=== PATIENT | female | born 1955 | race Caucasian/White ===

== ENCOUNTER → 2017-06-02 | Outpatient (CLI) | payer OTHER ==
[2015-02-26 22:03] VITALS: BP 128/66
[~2017-06-02] MED LIST: DIVA500T17 PO; INSU100C SQ; INSU100V8 SQ; OLAN20TA7 PO; TRAZ100T12 PO; TRAZ50TA15 PO
--- NOTE | 2017-06-02 16:47 | KCIC ---
Left lower extremity venous Doppler ultrasound History: Pain and swelling of the left foot. Comparison: None. Procedure: Color flow Doppler, Doppler spectral analysis, and 2D images are obtained with and without compression in the area of the common femoral vein, superficial femoral vein - femoral vein junction, main femoral vein (superficial femoral vein) and popliteal vein. Veins of the proximal calf are also imaged. Findings: There is normal color flow, augmentation, and compressibility of all visualized vein segments. No evidence of deep venous thrombus is present. IMPRESSION: No evidence of left lower extremity deep venous thrombosis. Electronically signed by: Martell Schultz MD (06/02/2017 4:43 PM) [id number]
--- NOTE | 2017-06-19 12:28 | KCIC ---
Left lower extremity venous Doppler ultrasound History: Pain and swelling of the left foot. Comparison: None. Procedure: Color flow Doppler, Doppler spectral analysis, and 2D images are obtained with and without compression in the area of the common femoral vein, superficial femoral vein - femoral vein junction, main femoral vein (superficial femoral vein) and popliteal vein. Veins of the proximal calf are also imaged. Findings: There is normal color flow, augmentation, and compressibility of all visualized vein segments. No evidence of deep venous thrombus is present. IMPRESSION: No evidence of left lower extremity deep venous thrombosis. Electronically signed by: Martell So MD (06/02/2017 4:43 PM) [id number] DICTATED and SIGNED BY: MARTELL SO MD DATE: 06/02/17 1642 MTDD
== END | disposition home or self-care (01) ==
LOC: KCIC US 15:34
PROVIDERS: ATTEND Emergency Medicine
DX: M79.89 Other specified soft tissue disorders (principal)
CPT/HCPCS: 93971

== ENCOUNTER 2018-11-18 10:14 | Inpatient (IN) | payer OTHER ==
[2018-11-18] VITALS (11 sets, daily range): BP systolic 93–147; BP diastolic 46–82
[~2018-11-18] VITALS: Ht 167.6 cm; Wt 50.8 kg
[~2018-11-18 10:14] MED LIST changes: +OLAN20TA15 PO; -OLAN20TA7 PO; +TRAZ-118 PO; +TRAZ-86 PO; -TRAZ100T12 PO; -TRAZ50TA15 PO
[2018-11-18] MEDS ORDERED: IV NORMAL SALINE 1000ML BAG 1,000 ML IV SCH ×2 (10:28→12:00)
[2018-11-18] MEDS ORDERED: INSULIN REGULAR 100 UNIT/ML 3ML VIAL. IV ONE (10:30)
[2018-11-18] MEDS ORDERED: IV NORMAL SALINE 1000ML BAG 1,000 ML IV ONE ×2 (10:30→11:30)
[2018-11-18] MEDS ORDERED: INSULIN,REGULAR 150 UNIT DRIP 150 ML IV ONE (10:45)
[2018-11-18 11:00] LABS: BILIRUBIN,URINE NEGATIVE (NEG); CLARITY,URINE CLEAR; COLOR,URINE YELLOW; NITRITE,URINE NEGATIVE (NEG); PROTEIN,URINE NEGATIVE (NEG-TRACE); UROBILINOGEN,URINE 0.2 mg/dL (0.2 mg/dL)
[2018-11-18 11:01] LABS: BASE EXCESS ABG -21 mmol/L (-3-3); HCO3 ABG 5 mmol/L (21-28); PO2 ABG 121 mmHg (65-108); SAT O2 ABG 97 % (92-99)
[2018-11-18 11:02] LABS: ALBUMIN 3.6 g/dL (3.4-5.0); ALBUMIN/GLOBULIN RATIO 0.8 (1.0-1.7); CALCIUM 9.9 mg/dL (8.5-10.1); CREATININE 2.5 mg/dL (0.6-1.0); GFR 19.5; MAGNESIUM 2.5 mg/dL (1.8-2.4); PHOSPHORUS 6.5 mg/dL (2.6-4.7); POTASSIUM 4.6 mmol/L (3.5-5.1); TOTAL BILIRUBIN 0.7 mg/dL (0.2-1.0); TOTAL PROTEIN 8.1 g/dL (6.4-8.2)
[2018-11-18 11:03] LABS: AMORPHOUS SEDIMENT,UR PRESENT /HPF; SQUAMOUS EPITHELIAL CELL,UR MOD /LPF
[2018-11-18 11:04] LABS: BACTERIA,URINE FEW /HPF (0-FEW); HYALINE CASTS, URINE FEW /HPF
[2018-11-18 11:04] LABS: FIO2 ABG 28; PCO2 ABG < 15 mmHg (35-46)
--- NOTE | 2018-11-18 11:07 | RAD ---
EXAM: Chest, single view. HISTORY: Shortness of breath. COMPARISON: 07/26/2013 FINDINGS: A frontal view of the chest is obtained. There is no infiltrate, pleural effusion or pneumothorax. The heart is normal in size. IMPRESSION: No acute pulmonary finding. Electronically signed by: Naomy Ellison MD (11/18/2018 11:04 AM) [facility]
[2018-11-18 11:10] LABS: BASO % 0 % (0-3); EOS % 0 % (0-3); HEMATOCRIT 43.1 % (36.0-47.0); HEMOGLOBIN 13.2 g/dL (12.0-15.5); LYMPH # 0.9 x10^3/uL (1.0-4.8); LYMPH % 4 % (24-48); MEAN CORPUSCULAR HEMOGLOBIN 29 pg (25-35); MEAN CORPUSCULAR HGB CONC 31 g/dL (31-37); MEAN CORPUSCULAR VOLUME 94 fL (79-100); MONO # 1.5 x10^3/uL (0.0-1.1); MONO % 6 % (0-9); NEUT # 22.8 x10^3uL (1.8-7.7); NEUT % 90 % (31-73); PLATELET COUNT 454 x10^3/uL (140-400); RED BLOOD COUNT 4.57 x10^6/uL (3.50-5.40); RED CELL DISTRIBUTION WIDTH 15.7 % (11.5-14.5); WHITE BLOOD COUNT 25.2 x10^3/uL (4.0-11.0)
[2018-11-18] MEDS ORDERED: VANCOMYCIN 1GM IVPB FOR OMNI 250 ML IV ONE (11:30)
[2018-11-18] MEDS ORDERED: cefTRIAXone IV Push 1 GM VIAL. IVP ONE (11:30)
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
--- NOTE | 2018-11-18 11:40 | PDOC1 ---
History and Physical Date of Admission Date of Admission DATE: 11/18/18 TIME: 11:32 Identification/Chief Complaint Chief Complaint Confused History of Present Illness History of Present Illness Ms Golden is a 63yo F w/ PMHx Lewy Body Dementia, BP2 disorder, DM, HTN who was recovering from right lower leg fracture surgery at [facility] after surgery at [facility] 1 week ago when she was found very confused today, not her normal baseline dementia according to her , bedside and was brought to ED. Found with DKA, glucose greater than 800, lactate elevated, sodium 150, cr elevated 2.5. Leukocytosis 25K. On further review her notes she has been taking PO very poorly the past week and he was concerned she was given 17 units humalog insulin this morning., he now understands she is in DKA. Past Medical History Cardiovascular: HTN Pulmonary: No pertinent hx CENTRAL NERVOUS SYSTEM: Dementia (Lewy Body) GI: No pertinent hx Heme/Onc: No pertinent hx Hepatobiliary: No pertinent hx Psych: Bipolar, Psychosis Rheumatologic: No pertinent hx Infectious disease: No pertinent hx ENT: No pertinent hx Renal/: No pertinent hx Endocrine: Diabetes Dermatology: No pertinent hx Past Surgical History Past Surgical History: Other (RLE fracture surgery) Family History Family History: Alzheimer's Disease, Heart Disease Social History Smoke: No ALCOHOL: none Drugs: None Current Medications Current Medications Current Medications Sodium Chloride 1,000 ml @ 1,000 mls/hr Q1H IV Last administered on 11/18/18at 10:49; Start 11/18/18 at 10:28; Stop 11/18/18 at 11:27; Status DC Sodium Chloride 1,000 ml @ 1,000 mls/hr 1X ONCE IV Last administered on 11/18/18at 11:15; Start 11/18/18 at 10:30; Stop 11/18/18 at 11:29; Status DC Insulin Human Regular (HumuLIN R VIAL) 10 unit 1X ONCE IV Last administered on 11/18/18at 11:16; Start 11/18/18 at 10:30; Stop 11/18/18 at 10:35; Status DC Insulin Human Regular 150 ml @ 0 mls/hr 1X ONCE IV Last administered on 11/18/18at 11:24; Start 11/18/18 at 10:45; Stop 11/18/18 at 10:46; Status DC Active Scripts Active Reported Divalproex Sodium Er (Divalproex Sodium) 500 Mg Tab.er.24h 1 Tab PO QHS Trazodone Hcl 100 Mg Tablet 1 Tab PO QHS Trazodone Hcl 50 Mg Tablet 1 Tab PO QHS Olanzapine 20 Mg Tablet 1 Tab PO QHS Humalog (Insulin Lispro) 100 Unit/1 Ml Cartridge 10 Unit SQ TIDWMEALS Lantus (Insulin Glargine,Hum.rec.anlog) 100 Unit/1 Ml Vial 30 Unit SQ HS Allergies Allergies: Coded Allergies: No Known Drug Allergies (Unverified , 07/26/13) ROS Review of System Unable to obtain due to patient mental state, she is nearly non-verbal Physical Exam General: mild distress, Other (Writhing in pain) HEENT: Atraumatic, PERRLA, EOMI, Mucous membr. moist/pink, Other (Cachectic appearing) Lungs: Clear to auscultation, Normal air movement Heart: S1S2, RRR Abdomen: Normal bowel sounds, No hepatosplenomegaly, No masses, Other (Diffuse tenderness) Rectal Exam: not examined Extremities: No clubbing, No cyanosis, No edema, Normal pulses, Other (RLE with post-op laly, bruising, slight swelling, no foot drop, + pulses) Neuro: Other (Moving all 4 limbs, will not comply with neuro examination) Vitals Vitals Vital Signs Date Time Temp Pulse Resp B/P (MAP) Pulse Ox O2 Delivery O2 Flow Rate FiO2 11/18/18 11:15 132 32 100 11/18/18 10:14 97.8 174/86 (115) Room Air 97.8 Labs Labs Laboratory Tests Test 11/18/18 10:20 11/18/18 10:45 11/18/18 10:50 11/18/18 10:55 Sodium Level 150 mmol/L (136-145) Potassium Level 4.6 mmol/L (3.5-5.1) Chloride Level 108 mmol/L (98-107) Carbon Dioxide Level 7 mmol/L (21-32) Anion Gap 35 (6-14) Blood Urea Nitrogen 51 mg/dL (7-20) Creatinine 2.5 mg/dL (0.6-1.0) Estimated GFR (Cockcroft-Gault) 19.5 BUN/Creatinine Ratio 20 (6-20) Glucose Level 849 mg/dL (70-99) Lactic Acid Level 8.3 mmol/L (0.4-2.0) Calcium Level 9.9 mg/dL (8.5-10.1) Phosphorus Level 6.5 mg/dL (2.6-4.7) Magnesium Level 2.5 mg/dL (1.8-2.4) Total Bilirubin 0.7 mg/dL (0.2-1.0) Aspartate Amino Transf (AST/SGOT) 25 U/L (15-37) Alanine Aminotransferase (ALT/SGPT) 26 U/L (14-59) Alkaline Phosphatase 166 U/L (46-116) Total Protein 8.1 g/dL (6.4-8.2) Albumin 3.6 g/dL (3.4-5.0) Albumin/Globulin Ratio 0.8 (1.0-1.7) Acetone Level Mod pos (NEG) O2 Saturation 97 % (92-99) Arterial Blood pH 7.18 (7.35-7.45) Arterial Blood pCO2 at Patient Temp < 15 mmHg (35-46) Arterial Blood pO2 at Patient Temp 121 mmHg (65-108) Arterial Blood HCO3 5 mmol/L (21-28) Arterial Blood Base Excess -21 mmol/L (-3-3) FiO2 28 Urine Collection Type Unknown Urine Color Yellow Urine Clarity Clear Urine pH 5.0 Urine Specific [place] >=1.030 Urine Protein Negative mg/dL (NEG-TRACE) Urine Glucose (UA) >=1000 mg/dL (NEG) Urine Ketones (Stick) 40 mg/dL (NEG) Urine Blood Small (NEG) Urine Nitrite Negative (NEG) Urine Bilirubin Negative (NEG) Urine Urobilinogen Dipstick 0.2 mg/dL (0.2 mg/dL) Urine Leukocyte Esterase Negative (NEG) Urine RBC 3-5 /HPF (0-2) Urine WBC 1-4 /HPF (0-4) Urine Squamous Epithelial Cells Mod /LPF Urine Amorphous Sediment Present /HPF Urine Bacteria Few /HPF (0-FEW) Urine Hyaline Casts Few /HPF Urine Mucus Mod /LPF White Blood Count 25.2 x10^3/uL (4.0-11.0) Red Blood Count 4.57 x10^6/uL (3.50-5.40) Hemoglobin 13.2 g/dL (12.0-15.5) Hematocrit 43.1 % (36.0-47.0) Mean Corpuscular Volume 94 fL (79-100) Mean Corpuscular Hemoglobin 29 pg (25-35) Mean Corpuscular Hemoglobin Concent 31 g/dL (31-37) Red Cell Distribution Width 15.7 % (11.5-14.5) Platelet Count 454 x10^3/uL (140-400) Neutrophils (%) (Auto) 90 % (31-73) Lymphocytes (%) (Auto) 4 % (24-48) Monocytes (%) (Auto) 6 % (0-9) Eosinophils (%) (Auto) 0 % (0-3) Basophils (%) (Auto) 0 % (0-3) Neutrophils # (Auto) 22.8 x10^3uL (1.8-7.7) Lymphocytes # (Auto) 0.9 x10^3/uL (1.0-4.8) Monocytes # (Auto) 1.5 x10^3/uL (0.0-1.1) Eosinophils # (Auto) 0.0 x10^3/uL (0.0-0.7) Basophils # (Auto) 0.0 x10^3/uL (0.0-0.2) D-Dimer (Mavis) 3.89 ug/mlFEU (0.00-0.50) Laboratory Tests Test 11/18/18 10:20 11/18/18 10:45 11/18/18 10:50 11/18/18 10:55 Sodium Level 150 mmol/L (136-145) Potassium Level 4.6 mmol/L (3.5-5.1) Chloride Level 108 mmol/L (98-107) Carbon Dioxide Level 7 mmol/L (21-32) Anion Gap 35 (6-14) Blood Urea Nitrogen 51 mg/dL (7-20) Creatinine 2.5 mg/dL (0.6-1.0) Estimated GFR (Cockcroft-Gault) 19.5 BUN/Creatinine Ratio 20 (6-20) Glucose Level 849 mg/dL (70-99) Lactic Acid Level 8.3 mmol/L (0.4-2.0) Calcium Level 9.9 mg/dL (8.5-10.1) Phosphorus Level 6.5 mg/dL (2.6-4.7) Magnesium Level 2.5 mg/dL (1.8-2.4) Total Bilirubin 0.7 mg/dL (0.2-1.0) Aspartate Amino Transf (AST/SGOT) 25 U/L (15-37) Alanine Aminotransferase (ALT/SGPT) 26 U/L (14-59) Alkaline Phosphatase 166 U/L (46-116) Total Protein 8.1 g/dL (6.4-8.2) Albumin 3.6 g/dL (3.4-5.0) Albumin/Globulin Ratio 0.8 (1.0-1.7) Acetone Level Mod pos (NEG) O2 Saturation 97 % (92-99) Arterial Blood pH 7.18 (7.35-7.45) Arterial Blood pCO2 at Patient Temp < 15 mmHg (35-46) Arterial Blood pO2 at Patient Temp 121 mmHg (65-108) Arterial Blood HCO3 5 mmol/L (21-28) Arterial Blood Base Excess -21 mmol/L (-3-3) FiO2 28 Urine Collection Type Unknown Urine Color Yellow Urine Clarity Clear Urine pH 5.0 Urine Specific [place] >=1.030 Urine Protein Negative mg/dL (NEG-TRACE) Urine Glucose (UA) >=1000 mg/dL (NEG) Urine Ketones (Stick) 40 mg/dL (NEG) Urine Blood Small (NEG) Urine Nitrite Negative (NEG) Urine Bilirubin Negative (NEG) Urine Urobilinogen Dipstick 0.2 mg/dL (0.2 mg/dL) Urine Leukocyte Esterase Negative (NEG) Urine RBC 3-5 /HPF (0-2) Urine WBC 1-4 /HPF (0-4) Urine Squamous Epithelial Cells Mod /LPF Urine Amorphous Sediment Present /HPF Urine Bacteria Few /HPF (0-FEW) Urine Hyaline Casts Few /HPF Urine Mucus Mod /LPF White Blood Count 25.2 x10^3/uL (4.0-11.0) Red Blood Count 4.57 x10^6/uL (3.50-5.40) Hemoglobin 13.2 g/dL (12.0-15.5) Hematocrit 43.1 % (36.0-47.0) Mean Corpuscular Volume 94 fL (79-100) Mean Corpuscular Hemoglobin 29 pg (25-35) Mean Corpuscular Hemoglobin Concent 31 g/dL (31-37) Red Cell Distribution Width 15.7 % (11.5-14.5) Platelet Count 454 x10^3/uL (140-400) Neutrophils (%) (Auto) 90 % (31-73) Lymphocytes (%) (Auto) 4 % (24-48) Monocytes (%) (Auto) 6 % (0-9) Eosinophils (%) (Auto) 0 % (0-3) Basophils (%) (Auto) 0 % (0-3) Neutrophils # (Auto) 22.8 x10^3uL (1.8-7.7) Lymphocytes # (Auto) 0.9 x10^3/uL (1.0-4.8) Monocytes # (Auto) 1.5 x10^3/uL (0.0-1.1) Eosinophils # (Auto) 0.0 x10^3/uL (0.0-0.7) Basophils # (Auto) 0.0 x10^3/uL (0.0-0.2) D-Dimer (Mavis) 3.89 ug/mlFEU (0.00-0.50) Images Images No acute pulmonary finding. VTE Prophylaxis Ordered VTE Prophylaxis Devices: No VTE Pharmacological Prophylaxi: Yes Assessment/Plan Assessment/Plan A/P: Metabolic encephalopathy - 2/2 DKA, likely underlying infection Bipolar disorder - cont depakote after check level DKA - on insulin GTT, will start on 1/2 NSS instead of NSS with her hypernatremia. Check renal panel Q 6hrs. May need insulin GTT for greater than 24 hours given her lack of PO intake prior to admit Severe sepsis - uncertain etiology, leg looks good, CXR clear, urine bland. Will cont empiric antibiotics, f/u blood cultures Hypernatremia - likely 2/2 poor PO intake, with her DKA, should expect hyponatremia, I expect her sodium to jump, will cont 1/2 NSS and consult nephrology Acute renal failure - likely vasomotor nephropathy 2/2 poor PO intake, DKA, will hydrate, monitor Tachycardia - 2/2 sepsis, DKA Hyperphosphatemia - likely from DKA, will monitor, this will drop, likely will need phos replacement Hypermagnesemia - will monitor FEN - NPO PPX - heparin DNR/DNI ICU for DKA, severe sepsis MICHELLE RAYA MD November 18, 2018 11:40
[2018-11-18 12:11] LABS: % BANDS 6 % (0-9); % BASOS 1 % (0-3); % LYMPHS 4 % (24-48); % METAS 1 % (0-0); % MYELOS 1 % (0-0)
[2018-11-18 12:12] LABS: % MONOS 4 % (0-10); % SEGS 83 % (35-66); PLT ESTIMATE INCREASED (ADEQUATE)
[2018-11-18 12:13] LABS: ANISOCYTOSIS SLIGHT; POLYCHROMASIA MOD
--- NOTE | 2018-11-18 12:34 | EKG ---
[facility] [address] [place] [address] Test Date: 2018-11-18 Test Time: 10:21:26 Pat Name: EVGENY TAYLOR Department: Room: [facility] Gender: F Grades 1 Through 5 Teacher: : 1955 Requested By: PHILIPP MADERA Order Number: [id number] Reading MD: Jason Mederos Measurements Intervals [place] Rate: 143 P: -45 ID: [id number] QRS: 49 QRSD: 66 T: 69 QT: 270 QTc: 421 Interpretive Statements SINUS TACHYCARDIA NON SPECIFIC T ABNORMALITY Electronically Signed On 11-21-2018 16:00:19 CDT by Jason Mederos
[2018-11-18] MEDS ORDERED: OLANZapine IM 10 MG VIAL. IM PRN (13:30)
[2018-11-18] MEDS ORDERED: 1/2 NORMAL SALINE IV ONE (13:45)
[2018-11-18] MEDS: IV 1/2 NORMAL SALINE 1,000 ML IV SCH ×2 (13:50→15:00)
--- NOTE | 2018-11-18 13:51 | NUR ---
Rec;d earlier from ED per cart, thrashing in bed, non verbal. IV both arms patent. Ins gtt,NS and vanc running. here. Pt here with DKA. BS 360 Glucistabilizer resumed and ins gtt decreased. talked with Dr Olivares and stated pt has lewy-Body dimentia and this is some of baseline activity. Will proceed with DKA protocol. Sod 150. Hughes with cl yellow urine. VSS. O2sat ok on 2l n/c. Dr Olivares ordered 2 liter addl 1/2NS now
[2018-11-18] MEDS ORDERED: IV DEXTROSE 5 %-0.45 % NACL 1,000 ML IV ONE ×2 (14:15→17:45)
[2018-11-18] MEDS ORDERED: MIDAZOLAM 100mg/100ml NS BAG 100 ML IV PRN ×2 (14:15→14:30)
[2018-11-18 14:34] LABS: CALCIUM 8.9 mg/dL (8.5-10.1); CREATININE 1.8 mg/dL (0.6-1.0); GFR 28.5; POTASSIUM 3.5 mmol/L (3.5-5.1)
[2018-11-18] MEDS ORDERED: POTASSIUM PHOSPHATE DIBASIC 13.6 MMOL in IV DEXTROSE 5% 100ML 100 ML IV SCH (15:15)
[2018-11-18] MEDS: POTASSIUM CHLORIDE 10MEQ 100 ML IV SCH ×4 (15:26→18:33)
[2018-11-18] MEDS: POTASSIUM PHOSPHATE DIBASIC 20 MMOL in IV NORMAL SALINE 250ML 250 ML IV SCH ×2 (15:26→17:28)
[2018-11-18 16:00] LABS: VAL ACID < 3 mcg/mL (50-100)
[2018-11-18] MEDS ORDERED: ZIPRASIDONE IM 20 MG VIAL. IM ONE (16:15)
[2018-11-18 18:44] LABS: CALCIUM 7.9 mg/dL (8.5-10.1); CREATININE 1.3 mg/dL (0.6-1.0); GFR 41.5; MAGNESIUM 1.8 mg/dL (1.8-2.4); POTASSIUM 4.2 mmol/L (3.5-5.1)
[2018-11-18 18:46] LABS: ALBUMIN 2.4 g/dL (3.4-5.0); CALCIUM 8.1 mg/dL (8.5-10.1); CREATININE 1.3 mg/dL (0.6-1.0); GFR 41.5; POTASSIUM 4.1 mmol/L (3.5-5.1)
[2018-11-18] MEDS: fentaNYL PF VIAL 100 MCG/2 ML VIAL IV PRN ×2 (19:53→23:20)
[2018-11-18] MEDS: INSULIN GLARGINE 300 UNITS/3 ML INSULN.PEN. SQ SCH (19:54)
[2018-11-18] MEDS: DIVALPROEX EXTENDED RELEASE 500 MG TAB.ER.24H. PO SCH (21:00)
[2018-11-18] MEDS ORDERED: CHLORHEXIDINE 0.12% 15 ML MOUTHWASH. MM SCH (21:00)
[2018-11-18] MEDS ORDERED: NON FORMULARY ITEM (Trazodone Hcl 1 TAB) PO SCH (21:00)
[2018-11-18] MEDS: traZODone 100 MG TABLET. PO SCH (21:00)
[2018-11-18] MEDS: OLANZapine 5 MG TABLET PO SCH (21:00)
[2018-11-19] VITALS (17 sets, daily range): BP systolic 91–119; BP diastolic 38–63
[2018-11-19] MEDS: DEXTROSE 50% 25 GM / 50ML DISP.SYRIN. IV PRN ×4 (00:23→11:49)
[2018-11-19] MEDS: IV 1/2 NORMAL SALINE 1,000 ML IV SCH ×4 (01:09→11:27)
[2018-11-19] MEDS: fentaNYL PF VIAL 100 MCG/2 ML VIAL IV PRN ×3 (02:52→14:08)
[2018-11-19 04:15] LABS: ALBUMIN 2.5 g/dL (3.4-5.0); CALCIUM 8.2 mg/dL (8.5-10.1); CREATININE 0.8 mg/dL (0.6-1.0); GFR 72.7; PHOSPHORUS 3.4 mg/dL (2.6-4.7); POTASSIUM 3.5 mmol/L (3.5-5.1)
[2018-11-19 04:18] LABS: BASO # 0.1 x10^3/uL (0.0-0.2); BASO % 1 % (0-3); EOS % 0 % (0-3); HEMATOCRIT 31.7 % (36.0-47.0); HEMOGLOBIN 10.4 g/dL (12.0-15.5); LYMPH # 3.2 x10^3/uL (1.0-4.8); LYMPH % 19 % (24-48); MEAN CORPUSCULAR HEMOGLOBIN 29 pg (25-35); MEAN CORPUSCULAR HGB CONC 33 g/dL (31-37); MEAN CORPUSCULAR VOLUME 88 fL (79-100); MONO # 0.7 x10^3/uL (0.0-1.1); MONO % 4 % (0-9); NEUT # 12.8 x10^3uL (1.8-7.7); NEUT % 76 % (31-73); PLATELET COUNT 318 x10^3/uL (140-400); RED BLOOD COUNT 3.59 x10^6/uL (3.50-5.40); RED CELL DISTRIBUTION WIDTH 14.7 % (11.5-14.5); WHITE BLOOD COUNT 16.8 x10^3/uL (4.0-11.0)
[2018-11-19] MEDS: INSULIN LISPRO 300 UNITS/3 ML INSULN.PEN. SQ SCH ×6 (05:45→18:46)
--- NOTE | 2018-11-19 09:51 | PDOC ---
[facility] PROGRESS NOTE Chief Complaint Chief Complaint DKA Severe metabolic encephalopathy Bipolar Severe sepsis Hypernatremia Acute renal failure Tachycardia History of Present Illness History of Present Illness Patient is seen and examined in the ICU Her son is present Discussed with the nurse Review chart Patient is snoring and really doesn't respond much appears quite ill Vitals Vitals Vital Signs Date Time Temp Pulse Resp B/P (MAP) Pulse Ox O2 Delivery O2 Flow Rate FiO2 11/19/18 09:24 15 100 Nasal Cannula 2.0 11/19/18 09:10 74 110/58 (75) 11/19/18 05:00 98.2 98.2 Physical Exam General: moderate distress, Other (not responding much today) Heart: Regular rate, Normal S1, Normal S2 Lungs: Clear Abdomen: Normal bowel sounds, No hepatosplenomegaly, No masses, Other (Diffuse tenderness) Extremities: No clubbing, No cyanosis, No edema, Normal pulses, Other (RLE with post-op laly, bruising, slight swelling, no foot drop, + pulses) Skin: No rashes, No breakdown Labs LABS Laboratory Tests Test 11/18/18 10:20 11/18/18 10:45 11/18/18 10:50 11/18/18 10:55 Sodium Level 150 mmol/L (136-145) Potassium Level 4.6 mmol/L (3.5-5.1) Chloride Level 108 mmol/L (98-107) Carbon Dioxide Level 7 mmol/L (21-32) Anion Gap 35 (6-14) Blood Urea Nitrogen 51 mg/dL (7-20) Creatinine 2.5 mg/dL (0.6-1.0) Estimated GFR (Cockcroft-Gault) 19.5 BUN/Creatinine Ratio 20 (6-20) Glucose Level 849 mg/dL (70-99) Lactic Acid Level 8.3 mmol/L (0.4-2.0) Calcium Level 9.9 mg/dL (8.5-10.1) Phosphorus Level 6.5 mg/dL (2.6-4.7) Magnesium Level 2.5 mg/dL (1.8-2.4) Total Bilirubin 0.7 mg/dL (0.2-1.0) Aspartate Amino Transf (AST/SGOT) 25 U/L (15-37) Alanine Aminotransferase (ALT/SGPT) 26 U/L (14-59) Alkaline Phosphatase 166 U/L (46-116) Total Protein 8.1 g/dL (6.4-8.2) Albumin 3.6 g/dL (3.4-5.0) Albumin/Globulin Ratio 0.8 (1.0-1.7) Acetone Level Mod pos (NEG) O2 Saturation 97 % (92-99) Arterial Blood pH 7.18 (7.35-7.45) Arterial Blood pCO2 at Patient Temp < 15 mmHg (35-46) Arterial Blood pO2 at Patient Temp 121 mmHg (65-108) Arterial Blood HCO3 5 mmol/L (21-28) Arterial Blood Base Excess -21 mmol/L (-3-3) FiO2 28 Urine Collection Type Unknown Urine Color Yellow Urine Clarity Clear Urine pH 5.0 Urine Specific Jackson >=1.030 Urine Protein Negative mg/dL (NEG-TRACE) Urine Glucose (UA) >=1000 mg/dL (NEG) Urine Ketones (Stick) 40 mg/dL (NEG) Urine Blood Small (NEG) Urine Nitrite Negative (NEG) Urine Bilirubin Negative (NEG) Urine Urobilinogen Dipstick 0.2 mg/dL (0.2 mg/dL) Urine Leukocyte Esterase Negative (NEG) Urine RBC 3-5 /HPF (0-2) Urine WBC 1-4 /HPF (0-4) Urine Squamous Epithelial Cells Mod /LPF Urine Amorphous Sediment Present /HPF Urine Bacteria Few /HPF (0-FEW) Urine Hyaline Casts Few /HPF Urine Mucus Mod /LPF White Blood Count 25.2 x10^3/uL (4.0-11.0) Red Blood Count 4.57 x10^6/uL (3.50-5.40) Hemoglobin 13.2 g/dL (12.0-15.5) Hematocrit 43.1 % (36.0-47.0) Mean Corpuscular Volume 94 fL (79-100) Mean Corpuscular Hemoglobin 29 pg (25-35) Mean Corpuscular Hemoglobin Concent 31 g/dL (31-37) Red Cell Distribution Width 15.7 % (11.5-14.5) Platelet Count 454 x10^3/uL (140-400) Neutrophils (%) (Auto) 90 % (31-73) Lymphocytes (%) (Auto) 4 % (24-48) Monocytes (%) (Auto) 6 % (0-9) Eosinophils (%) (Auto) 0 % (0-3) Basophils (%) (Auto) 0 % (0-3) Neutrophils # (Auto) 22.8 x10^3uL (1.8-7.7) Lymphocytes # (Auto) 0.9 x10^3/uL (1.0-4.8) Monocytes # (Auto) 1.5 x10^3/uL (0.0-1.1) Eosinophils # (Auto) 0.0 x10^3/uL (0.0-0.7) Basophils # (Auto) 0.0 x10^3/uL (0.0-0.2) Segmented Neutrophils % 83 % (35-66) Band Neutrophils % 6 % (0-9) Lymphocytes % 4 % (24-48) Monocytes % 4 % (0-10) Basophils % 1 % (0-3) Metamyelocytes % 1 % (0-0) Myelocytes % 1 % (0-0) Platelet Estimate Increased (ADEQUATE) Polychromasia Mod Anisocytosis Slight D-Dimer (Mavis) 3.89 ug/mlFEU (0.00-0.50) Test 11/18/18 12:56 11/18/18 13:52 11/18/18 14:13 11/18/18 14:15 Glucose (Fingerstick) 322 mg/dL (70-99) 186 mg/dL (70-99) 192 mg/dL (70-99) Sodium Level 159 mmol/L (136-145) Potassium Level 3.5 mmol/L (3.5-5.1) Chloride Level 123 mmol/L (98-107) Carbon Dioxide Level 19 mmol/L (21-32) Anion Gap 17 (6-14) Blood Urea Nitrogen 46 mg/dL (7-20) Creatinine 1.8 mg/dL (0.6-1.0) Estimated GFR (Cockcroft-Gault) 28.5 Glucose Level 224 mg/dL (70-99) Lactic Acid Level 5.3 mmol/L (0.4-2.0) Calcium Level 8.9 mg/dL (8.5-10.1) Phosphorus Level 1.5 mg/dL (2.6-4.7) Magnesium Level 2.0 mg/dL (1.8-2.4) Valproic Acid (Depakene) Level < 3 mcg/mL (50-100) Valproic Acid Last Dose Date Unk Valproic Acid Last Dose Time Unk Test 11/18/18 15:34 11/18/18 16:31 11/18/18 17:32 11/18/18 18:10 Glucose (Fingerstick) 166 mg/dL (70-99) 165 mg/dL (70-99) 149 mg/dL (70-99) Sodium Level 154 mmol/L (136-145) Potassium Level 4.2 mmol/L (3.5-5.1) Chloride Level 121 mmol/L (98-107) Carbon Dioxide Level 20 mmol/L (21-32) Anion Gap 13 (6-14) Blood Urea Nitrogen 38 mg/dL (7-20) Creatinine 1.3 mg/dL (0.6-1.0) Estimated GFR (Cockcroft-Gault) 41.5 Glucose Level 152 mg/dL (70-99) Calcium Level 7.9 mg/dL (8.5-10.1) Phosphorus Level 4.0 mg/dL (2.6-4.7) Magnesium Level 1.8 mg/dL (1.8-2.4) Albumin 2.4 g/dL (3.4-5.0) Test 11/18/18 18:26 11/18/18 19:39 11/18/18 20:54 11/19/18 00:19 Glucose (Fingerstick) 118 mg/dL (70-99) 123 mg/dL (70-99) 122 mg/dL (70-99) 28 mg/dL (70-99) Test 11/19/18 00:30 11/19/18 00:38 11/19/18 01:32 11/19/18 02:53 Glucose Level 192 mg/dL (70-99) Glucose (Fingerstick) 141 mg/dL (70-99) 102 mg/dL (70-99) 70 mg/dL (70-99) Test 11/19/18 03:50 11/19/18 04:48 11/19/18 06:30 11/19/18 07:51 White Blood Count 16.8 x10^3/uL (4.0-11.0) Red Blood Count 3.59 x10^6/uL (3.50-5.40) Hemoglobin 10.4 g/dL (12.0-15.5) Hematocrit 31.7 % (36.0-47.0) Mean Corpuscular Volume 88 fL (79-100) Mean Corpuscular Hemoglobin 29 pg (25-35) Mean Corpuscular Hemoglobin Concent 33 g/dL (31-37) Red Cell Distribution Width 14.7 % (11.5-14.5) Platelet Count 318 x10^3/uL (140-400) Neutrophils (%) (Auto) 76 % (31-73) Lymphocytes (%) (Auto) 19 % (24-48) Monocytes (%) (Auto) 4 % (0-9) Eosinophils (%) (Auto) 0 % (0-3) Basophils (%) (Auto) 1 % (0-3) Neutrophils # (Auto) 12.8 x10^3uL (1.8-7.7) Lymphocytes # (Auto) 3.2 x10^3/uL (1.0-4.8) Monocytes # (Auto) 0.7 x10^3/uL (0.0-1.1) Eosinophils # (Auto) 0.0 x10^3/uL (0.0-0.7) Basophils # (Auto) 0.1 x10^3/uL (0.0-0.2) Sodium Level 151 mmol/L (136-145) Potassium Level 3.5 mmol/L (3.5-5.1) Chloride Level 116 mmol/L (98-107) Carbon Dioxide Level 23 mmol/L (21-32) Anion Gap 12 (6-14) Blood Urea Nitrogen 24 mg/dL (7-20) Creatinine 0.8 mg/dL (0.6-1.0) Estimated GFR (Cockcroft-Gault) 72.7 Glucose Level 53 mg/dL (70-99) Calcium Level 8.2 mg/dL (8.5-10.1) Phosphorus Level 3.4 mg/dL (2.6-4.7) Albumin 2.5 g/dL (3.4-5.0) Glucose (Fingerstick) 141 mg/dL (70-99) 94 mg/dL (70-99) 60 mg/dL (70-99) Test 11/19/18 08:45 Glucose (Fingerstick) 117 mg/dL (70-99) Review of Systems Review of Systems Unable to obtain Assessment and Plan Assessmemt and Plan Problems Medical Problems: (1) Acute renal failure Status: Acute (2) Altered mental status Status: Acute (3) DKA (diabetic ketoacidoses) Status: Acute (4) Hypermagnesemia Status: Acute (5) Hypernatremia Status: Acute (6) Hyperphosphatemia Status: Acute (7) Severe sepsis Status: Acute (8) Tachycardia Status: Acute DKA Severe metabolic encephalopathy Bipolar Severe sepsis Hypernatremia Acute renal failure Tachycardia Plan ICU monitoring IV fluids Frequent labs DKA protocol Home meds once she is more alert DVT prophylaxis IV antibiotics Full code Prognosis guarded Total time 31 minutes Comment Review of Relevant I have reviewed the following items [email or web address] (where applicable) has been applied. Labs Laboratory Tests Test 11/18/18 10:20 11/18/18 10:45 11/18/18 10:50 11/18/18 10:55 Sodium Level 150 mmol/L (136-145) Potassium Level 4.6 mmol/L (3.5-5.1) Chloride Level 108 mmol/L (98-107) Carbon Dioxide Level 7 mmol/L (21-32) Anion Gap 35 (6-14) Blood Urea Nitrogen 51 mg/dL (7-20) Creatinine 2.5 mg/dL (0.6-1.0) Estimated GFR (Cockcroft-Gault) 19.5 BUN/Creatinine Ratio 20 (6-20) Glucose Level 849 mg/dL (70-99) Lactic Acid Level 8.3 mmol/L (0.4-2.0) Calcium Level 9.9 mg/dL (8.5-10.1) Phosphorus Level 6.5 mg/dL (2.6-4.7) Magnesium Level 2.5 mg/dL (1.8-2.4) Total Bilirubin 0.7 mg/dL (0.2-1.0) Aspartate Amino Transf (AST/SGOT) 25 U/L (15-37) Alanine Aminotransferase (ALT/SGPT) 26 U/L (14-59) Alkaline Phosphatase 166 U/L (46-116) Total Protein 8.1 g/dL (6.4-8.2) Albumin 3.6 g/dL (3.4-5.0) Albumin/Globulin Ratio 0.8 (1.0-1.7) Acetone Level Mod pos (NEG) O2 Saturation 97 % (92-99) Arterial Blood pH 7.18 (7.35-7.45) Arterial Blood pCO2 at Patient Temp < 15 mmHg (35-46) Arterial Blood pO2 at Patient Temp 121 mmHg (65-108) Arterial Blood HCO3 5 mmol/L (21-28) Arterial Blood Base Excess -21 mmol/L (-3-3) FiO2 28 Urine Collection Type Unknown Urine Color Yellow Urine Clarity Clear Urine pH 5.0 Urine Specific Jackson >=1.030 Urine Protein Negative mg/dL (NEG-TRACE) Urine Glucose (UA) >=1000 mg/dL (NEG) Urine Ketones (Stick) 40 mg/dL (NEG) Urine Blood Small (NEG) Urine Nitrite Negative (NEG) Urine Bilirubin Negative (NEG) Urine Urobilinogen Dipstick 0.2 mg/dL (0.2 mg/dL) Urine Leukocyte Esterase Negative (NEG) Urine RBC 3-5 /HPF (0-2) Urine WBC 1-4 /HPF (0-4) Urine Squamous Epithelial Cells Mod /LPF Urine Amorphous Sediment Present /HPF Urine Bacteria Few /HPF (0-FEW) Urine Hyaline Casts Few /HPF Urine Mucus Mod /LPF White Blood Count 25.2 x10^3/uL (4.0-11.0) Red Blood Count 4.57 x10^6/uL (3.50-5.40) Hemoglobin 13.2 g/dL (12.0-15.5) Hematocrit 43.1 % (36.0-47.0) Mean Corpuscular Volume 94 fL (79-100) Mean Corpuscular Hemoglobin 29 pg (25-35) Mean Corpuscular Hemoglobin Concent 31 g/dL (31-37) Red Cell Distribution Width 15.7 % (11.5-14.5) Platelet Count 454 x10^3/uL (140-400) Neutrophils (%) (Auto) 90 % (31-73) Lymphocytes (%) (Auto) 4 % (24-48) Monocytes (%) (Auto) 6 % (0-9) Eosinophils (%) (Auto) 0 % (0-3) Basophils (%) (Auto) 0 % (0-3) Neutrophils # (Auto) 22.8 x10^3uL (1.8-7.7) Lymphocytes # (Auto) 0.9 x10^3/uL (1.0-4.8) Monocytes # (Auto) 1.5 x10^3/uL (0.0-1.1) Eosinophils # (Auto) 0.0 x10^3/uL (0.0-0.7) Basophils # (Auto) 0.0 x10^3/uL (0.0-0.2) Segmented Neutrophils % 83 % (35-66) Band Neutrophils % 6 % (0-9) Lymphocytes % 4 % (24-48) Monocytes % 4 % (0-10) Basophils % 1 % (0-3) Metamyelocytes % 1 % (0-0) Myelocytes % 1 % (0-0) Platelet Estimate Increased (ADEQUATE) Polychromasia Mod Anisocytosis Slight D-Dimer (Mavis) 3.89 ug/mlFEU (0.00-0.50) Test 11/18/18 12:56 11/18/18 13:52 11/18/18 14:13 11/18/18 14:15 Glucose (Fingerstick) 322 mg/dL (70-99) 186 mg/dL (70-99) 192 mg/dL (70-99) Sodium Level 159 mmol/L (136-145) Potassium Level 3.5 mmol/L (3.5-5.1) Chloride Level 123 mmol/L (98-107) Carbon Dioxide Level 19 mmol/L (21-32) Anion Gap 17 (6-14) Blood Urea Nitrogen 46 mg/dL (7-20) Creatinine 1.8 mg/dL (0.6-1.0) Estimated GFR (Cockcroft-Gault) 28.5 Glucose Level 224 mg/dL (70-99) Lactic Acid Level 5.3 mmol/L (0.4-2.0) Calcium Level 8.9 mg/dL (8.5-10.1) Phosphorus Level 1.5 mg/dL (2.6-4.7) Magnesium Level 2.0 mg/dL (1.8-2.4) Valproic Acid (Depakene) Level < 3 mcg/mL (50-100) Valproic Acid Last Dose Date Unk Valproic Acid Last Dose Time Unk Test 11/18/18 15:34 5/5/19 16:31 11/18/18 17:32 11/18/18 18:10 Glucose (Fingerstick) 166 mg/dL (70-99) 165 mg/dL (70-99) 149 mg/dL (70-99) Sodium Level 154 mmol/L (136-145) Potassium Level 4.2 mmol/L (3.5-5.1) Chloride Level 121 mmol/L (98-107) Carbon Dioxide Level 20 mmol/L (21-32) Anion Gap 13 (6-14) Blood Urea Nitrogen 38 mg/dL (7-20) Creatinine 1.3 mg/dL (0.6-1.0) Estimated GFR (Cockcroft-Gault) 41.5 Glucose Level 152 mg/dL (70-99) Calcium Level 7.9 mg/dL (8.5-10.1) Phosphorus Level 4.0 mg/dL (2.6-4.7) Magnesium Level 1.8 mg/dL (1.8-2.4) Albumin 2.4 g/dL (3.4-5.0) Test 11/18/18 18:26 11/18/18 19:39 11/18/18 20:54 11/19/18 00:19 Glucose (Fingerstick) 118 mg/dL (70-99) 123 mg/dL (70-99) 122 mg/dL (70-99) 28 mg/dL (70-99) Test 11/19/18 00:30 11/19/18 00:38 11/19/18 01:32 11/19/18 02:53 Glucose Level 192 mg/dL (70-99) Glucose (Fingerstick) 141 mg/dL (70-99) 102 mg/dL (70-99) 70 mg/dL (70-99) Test 11/19/18 03:50 11/19/18 04:48 11/19/18 06:30 11/19/18 07:51 White Blood Count 16.8 x10^3/uL (4.0-11.0) Red Blood Count 3.59 x10^6/uL (3.50-5.40) Hemoglobin 10.4 g/dL (12.0-15.5) Hematocrit 31.7 % (36.0-47.0) Mean Corpuscular Volume 88 fL (79-100) Mean Corpuscular Hemoglobin 29 pg (25-35) Mean Corpuscular Hemoglobin Concent 33 g/dL (31-37) Red Cell Distribution Width 14.7 % (11.5-14.5) Platelet Count 318 x10^3/uL (140-400) Neutrophils (%) (Auto) 76 % (31-73) Lymphocytes (%) (Auto) 19 % (24-48) Monocytes (%) (Auto) 4 % (0-9) Eosinophils (%) (Auto) 0 % (0-3) Basophils (%) (Auto) 1 % (0-3) Neutrophils # (Auto) 12.8 x10^3uL (1.8-7.7) Lymphocytes # (Auto) 3.2 x10^3/uL (1.0-4.8) Monocytes # (Auto) 0.7 x10^3/uL (0.0-1.1) Eosinophils # (Auto) 0.0 x10^3/uL (0.0-0.7) Basophils # (Auto) 0.1 x10^3/uL (0.0-0.2) Sodium Level 151 mmol/L (136-145) Potassium Level 3.5 mmol/L (3.5-5.1) Chloride Level 116 mmol/L (98-107) Carbon Dioxide Level 23 mmol/L (21-32) Anion Gap 12 (6-14) Blood Urea Nitrogen 24 mg/dL (7-20) Creatinine 0.8 mg/dL (0.6-1.0) Estimated GFR (Cockcroft-Gault) 72.7 Glucose Level 53 mg/dL (70-99) Calcium Level 8.2 mg/dL (8.5-10.1) Phosphorus Level 3.4 mg/dL (2.6-4.7) Albumin 2.5 g/dL (3.4-5.0) Glucose (Fingerstick) 141 mg/dL (70-99) 94 mg/dL (70-99) 60 mg/dL (70-99) Test 11/19/18 08:45 Glucose (Fingerstick) 117 mg/dL (70-99) Laboratory Tests Test 11/18/18 10:20 11/18/18 10:45 11/18/18 10:50 11/18/18 10:55 Sodium Level 150 mmol/L (136-145) Potassium Level 4.6 mmol/L (3.5-5.1) Chloride Level 108 mmol/L (98-107) Carbon Dioxide Level 7 mmol/L (21-32) Anion Gap 35 (6-14) Blood Urea Nitrogen 51 mg/dL (7-20) Creatinine 2.5 mg/dL (0.6-1.0) Estimated GFR (Cockcroft-Gault) 19.5 BUN/Creatinine Ratio 20 (6-20) Glucose Level 849 mg/dL (70-99) Lactic Acid Level 8.3 mmol/L (0.4-2.0) Calcium Level 9.9 mg/dL (8.5-10.1) Phosphorus Level 6.5 mg/dL (2.6-4.7) Magnesium Level 2.5 mg/dL (1.8-2.4) Total Bilirubin 0.7 mg/dL (0.2-1.0) Aspartate Amino Transf (AST/SGOT) 25 U/L (15-37) Alanine Aminotransferase (ALT/SGPT) 26 U/L (14-59) Alkaline Phosphatase 166 U/L (46-116) Total Protein 8.1 g/dL (6.4-8.2) Albumin 3.6 g/dL (3.4-5.0) Albumin/Globulin Ratio 0.8 (1.0-1.7) Acetone Level Mod pos (NEG) O2 Saturation 97 % (92-99) Arterial Blood pH 7.18 (7.35-7.45) Arterial Blood pCO2 at Patient Temp < 15 mmHg (35-46) Arterial Blood pO2 at Patient Temp 121 mmHg (65-108) Arterial Blood HCO3 5 mmol/L (21-28) Arterial Blood Base Excess -21 mmol/L (-3-3) FiO2 28 Urine Collection Type Unknown Urine Color Yellow Urine Clarity Clear Urine pH 5.0 Urine Specific Jackson >=1.030 Urine Protein Negative mg/dL (NEG-TRACE) Urine Glucose (UA) >=1000 mg/dL (NEG) Urine Ketones (Stick) 40 mg/dL (NEG) Urine Blood Small (NEG) Urine Nitrite Negative (NEG) Urine Bilirubin Negative (NEG) Urine Urobilinogen Dipstick 0.2 mg/dL (0.2 mg/dL) Urine Leukocyte Esterase Negative (NEG) Urine RBC 3-5 /HPF (0-2) Urine WBC 1-4 /HPF (0-4) Urine Squamous Epithelial Cells Mod /LPF Urine Amorphous Sediment Present /HPF Urine Bacteria Few /HPF (0-FEW) Urine Hyaline Casts Few /HPF Urine Mucus Mod /LPF White Blood Count 25.2 x10^3/uL (4.0-11.0) Red Blood Count 4.57 x10^6/uL (3.50-5.40) Hemoglobin 13.2 g/dL (12.0-15.5) Hematocrit 43.1 % (36.0-47.0) Mean Corpuscular Volume 94 fL (79-100) Mean Corpuscular Hemoglobin 29 pg (25-35) Mean Corpuscular Hemoglobin Concent 31 g/dL (31-37) Red Cell Distribution Width 15.7 % (11.5-14.5) Platelet Count 454 x10^3/uL (140-400) Neutrophils (%) (Auto) 90 % (31-73) Lymphocytes (%) (Auto) 4 % (24-48) Monocytes (%) (Auto) 6 % (0-9) Eosinophils (%) (Auto) 0 % (0-3) Basophils (%) (Auto) 0 % (0-3) Neutrophils # (Auto) 22.8 x10^3uL (1.8-7.7) Lymphocytes # (Auto) 0.9 x10^3/uL (1.0-4.8) Monocytes # (Auto) 1.5 x10^3/uL (0.0-1.1) Eosinophils # (Auto) 0.0 x10^3/uL (0.0-0.7) Basophils # (Auto) 0.0 x10^3/uL (0.0-0.2) Segmented Neutrophils % 83 % (35-66) Band Neutrophils % 6 % (0-9) Lymphocytes % 4 % (24-48) Monocytes % 4 % (0-10) Basophils % 1 % (0-3) Metamyelocytes % 1 % (0-0) Myelocytes % 1 % (0-0) Platelet Estimate Increased (ADEQUATE) Polychromasia Mod Anisocytosis Slight D-Dimer (Mavis) 3.89 ug/mlFEU (0.00-0.50) Test 11/18/18 12:56 11/18/18 13:52 11/18/18 14:13 11/18/18 14:15 Glucose (Fingerstick) 322 mg/dL (70-99) 186 mg/dL (70-99) 192 mg/dL (70-99) Sodium Level 159 mmol/L (136-145) Potassium Level 3.5 mmol/L (3.5-5.1) Chloride Level 123 mmol/L (98-107) Carbon Dioxide Level 19 mmol/L (21-32) Anion Gap 17 (6-14) Blood Urea Nitrogen 46 mg/dL (7-20) Creatinine 1.8 mg/dL (0.6-1.0) Estimated GFR (Cockcroft-Gault) 28.5 Glucose Level 224 mg/dL (70-99) Lactic Acid Level 5.3 mmol/L (0.4-2.0) Calcium Level 8.9 mg/dL (8.5-10.1) Phosphorus Level 1.5 mg/dL (2.6-4.7) Magnesium Level 2.0 mg/dL (1.8-2.4) Valproic Acid (Depakene) Level < 3 mcg/mL (50-100) Valproic Acid Last Dose Date Unk Valproic Acid Last Dose Time Unk Test 11/18/18 15:34 11/18/18 16:31 11/18/18 17:32 11/18/18 18:10 Glucose (Fingerstick) 166 mg/dL (70-99) 165 mg/dL (70-99) 149 mg/dL (70-99) Sodium Level 154 mmol/L (136-145) Potassium Level 4.2 mmol/L (3.5-5.1) Chloride Level 121 mmol/L (98-107) Carbon Dioxide Level 20 mmol/L (21-32) Anion Gap 13 (6-14) Blood Urea Nitrogen 38 mg/dL (7-20) Creatinine 1.3 mg/dL (0.6-1.0) Estimated GFR (Cockcroft-Gault) 41.5 Glucose Level 152 mg/dL (70-99) Calcium Level 7.9 mg/dL (8.5-10.1) Phosphorus Level 4.0 mg/dL (2.6-4.7) Magnesium Level 1.8 mg/dL (1.8-2.4) Albumin 2.4 g/dL (3.4-5.0) Test 11/18/18 18:26 11/18/18 19:39 11/18/18 20:54 11/19/18 00:19 Glucose (Fingerstick) 118 mg/dL (70-99) 123 mg/dL (70-99) 122 mg/dL (70-99) 28 mg/dL (70-99) Test 11/19/18 00:30 11/19/18 00:38 11/19/18 01:32 11/19/18 02:53 Glucose Level 192 mg/dL (70-99) Glucose (Fingerstick) 141 mg/dL (70-99) 102 mg/dL (70-99) 70 mg/dL (70-99) Test 11/19/18 03:50 11/19/18 04:48 11/19/18 06:30 11/19/18 07:51 White Blood Count 16.8 x10^3/uL (4.0-11.0) Red Blood Count 3.59 x10^6/uL (3.50-5.40) Hemoglobin 10.4 g/dL (12.0-15.5) Hematocrit 31.7 % (36.0-47.0) Mean Corpuscular Volume 88 fL (79-100) Mean Corpuscular Hemoglobin 29 pg (25-35) Mean Corpuscular Hemoglobin Concent 33 g/dL (31-37) Red Cell Distribution Width 14.7 % (11.5-14.5) Platelet Count 318 x10^3/uL (140-400) Neutrophils (%) (Auto) 76 % (31-73) Lymphocytes (%) (Auto) 19 % (24-48) Monocytes (%) (Auto) 4 % (0-9) Eosinophils (%) (Auto) 0 % (0-3) Basophils (%) (Auto) 1 % (0-3) Neutrophils # (Auto) 12.8 x10^3uL (1.8-7.7) Lymphocytes # (Auto) 3.2 x10^3/uL (1.0-4.8) Monocytes # (Auto) 0.7 x10^3/uL (0.0-1.1) Eosinophils # (Auto) 0.0 x10^3/uL (0.0-0.7) Basophils # (Auto) 0.1 x10^3/uL (0.0-0.2) Sodium Level 151 mmol/L (136-145) Potassium Level 3.5 mmol/L (3.5-5.1) Chloride Level 116 mmol/L (98-107) Carbon Dioxide Level 23 mmol/L (21-32) Anion Gap 12 (6-14) Blood Urea Nitrogen 24 mg/dL (7-20) Creatinine 0.8 mg/dL (0.6-1.0) Estimated GFR (Cockcroft-Gault) 72.7 Glucose Level 53 mg/dL (70-99) Calcium Level 8.2 mg/dL (8.5-10.1) Phosphorus Level 3.4 mg/dL (2.6-4.7) Albumin 2.5 g/dL (3.4-5.0) Glucose (Fingerstick) 141 mg/dL (70-99) 94 mg/dL (70-99) 60 mg/dL (70-99) Test 11/19/18 08:45 Glucose (Fingerstick) 117 mg/dL (70-99) Medications Current Medications Sodium Chloride 1,000 ml @ 1,000 mls/hr Q1H IV Last administered on 11/18/18 10:49; Start 11/18/18 at 10:28; Stop 11/18/18 at 11:27; Status DC Sodium Chloride 1,000 ml @ 1,000 mls/hr 1X ONCE IV Last administered on 11/18/18at 11:15; Start 11/18/18 at 10:30; Stop 11/18/18 at 13:34; Status DC Insulin Human Regular (HumuLIN R VIAL) 10 unit 1X ONCE IV Last administered on 11/18/18at 11:16; Start 11/18/18 at 10:30; Stop 11/18/18 at 10:35; Status DC Insulin Human Regular 150 ml @ 0 mls/hr 1X ONCE IV Last administered on 11/18/18at 11:24; Start 11/18/18 at 10:45; Stop 11/18/18 at 10:46; Status DC Sodium Chloride 1,000 ml @ 1,000 mls/hr 1X ONCE IV ; Start 11/18/18 at 11:30; Stop 11/18/18 at 12:29; Status Cancel Ceftriaxone Sodium (Rocephin) 1 gm 1X ONCE IVP Last administered on 11/18/18at 11:48; Start 11/18/18 at 11:30; Stop 11/18/18 at 11:33; Status DC Vancomycin HCl 250 ml @ 250 mls/hr 1X ONCE IV Last administered on 11/18/18at 11:53; Start 11/18/18 at 11:30; Stop 11/18/18 at 12:29; Status DC Sodium Chloride 1,000 ml @ 150 mls/hr Q6H40M IV ; Start 11/18/18 at 12:00; Stop 11/18/18 at 15:15; Status DC Divalproex Sodium (Depakote Er) 500 mg QHS PO ; Start 11/18/18 at 21:00 Trazodone HCl (Desyrel) 100 mg QHS PO ; Start 11/18/18 at 21:00 Olanzapine (ZyPREXA) 20 mg QHS PO ; Start 11/18/18 at 21:00 Non-Formulary Medication (Trazodone Hcl ) 1 tab QHS PO ; Start 11/18/18 at 21:00; Status UNV Olanzapine (ZyPREXA IM) 10 mg PRN BID PRN IM SCHIZOPHRENIA Last administered on 11/18/18at 13:40; Start 11/18/18 at 13:30 Sodium Chloride 2,000 ml @ 0 mls/hr 1X ONCE IV ; Start 11/18/18 at 13:45; Stop 11/18/18 at 13:45; Status DC Sodium Chloride 1,000 ml @ 0 mls/hr Q1H IV Last administered on 11/18/18at 15:00; Start 11/18/18 at 14:00; Stop 11/18/18 at 15:01; Status DC Dextrose/Sodium Chloride 1,000 ml @ 250 mls/hr 1X ONCE IV Last administered on 11/18/18at 14:08; Start 11/18/18 at 14:15; Stop 11/18/18 at 19:28; Status DC Fentanyl Citrate 30 ml @ 0 mls/hr CONT PRN IV SEE PROTOCOL; Start 11/18/18 at 14:15; Status UNV Chlorhexidine Gluconate (Peridex) 15 ml BID MM ; Start 11/18/18 at 21:00; Status UNV Midazolam HCl 100 ml @ 0 mls/hr CONT PRN IV SEE PROTOCOL; Start 11/18/18 at 14:15; Status UNV Fentanyl Citrate 30 ml @ 0 mls/hr CONT PRN IV SEE PROTOCOL; Start 11/18/18 at 1 4:30; Status UNV Midazolam HCl 100 ml @ 0 mls/hr CONT PRN IV SEE PROTOCOL; Start 11/18/18 at 14:30; Status UNV Potassium Chloride/Water 100 ml @ 100 mls/hr Q1H IV Last administered on 11/18/18at 18:33; Start 11/18/18 at 15:00; Stop 11/18/18 at 18:59; Status DC Potassium Phosphate 20 mmol/ Sodium Chloride 256.6667 ml @ 128.... Q2H IV Last administered on 11/18/18at 17:28; Start 11/18/18 at 15:00; Stop 11/18/18 at 18:59; Status DC Potassium Phosphate 13.6 mmol/Dextrose 104.5333 ml @ 52.267 m... Q2H IV ; Sta rt 11/18/18 at 15:15; Stop 11/18/18 at 19:14; Status UNV Ziprasidone (Geodon Im) 20 mg 1X ONCE IM ; Start 11/18/18 at 16:15; Stop 11/18/18 at 16:16; Status DC Ceftriaxone Sodium (Rocephin) 1 gm Q24H IVP ; Start 11/19/18 at 12:00 Dextrose/Sodium Chloride 1,000 ml @ 250 mls/hr 1X ONCE IV Last administered on 11/18/18at 17:54; Start 11/18/18 at 17:45; Stop 11/18/18 at 19:28; Status DC Insulin Glargine (Lantus) 30 units QHS SQ Last administered on 11/18/18at 19:54; Start 11/18/18 at 21:00 Insulin Human Lispro (HumaLOG) 10 units TIDWMEALS SQ ; Start 11/19/18 at 08:00 Insulin Human Lispro (HumaLOG) 5 units Q6HRS SQ ; Start 11/19/18 at 00:00 Fentanyl Citrate (Fentanyl 2ml Vial) 25 mcg PRN Q3HRS PRN IV PAIN Last administered on 11/19/18 09:24; Start 11/18/18 at 19:30 Sodium Chloride 1,000 ml @ 125 mls/hr Q8H IV Last administered on 11/19/18at 01:09; Start 11/18/18 at 19:30 Dextrose (Dextrose 50%-Water Syringe) 12.5 gm PRN Q15MIN PRN IV SEE COMMENTS Last administered on 11/19/18at 08:17; Start 11/18/18 at 19:45 Active Scripts Active Reported Divalproex Sodium Er (Divalproex Sodium) 500 Mg Tab.er.24h 1 Tab PO QHS Trazodone Hcl 100 Mg Tablet 1 Tab PO QHS Trazodone Hcl 50 Mg Tablet 1 Tab PO QHS Olanzapine 20 Mg Tablet 1 Tab PO QHS Humalog (Insulin Lispro) 100 Unit/1 Ml Cartridge 10 Unit SQ TIDWMEALS Lantus (Insulin Glargine,Hum.rec.anlog) 100 Unit/1 Ml Vial 30 Unit SQ HS Vitals/I & O Vital Sign - Last 24 Hours 11/18/18 11/18/18 11/18/18 11/18/18 10:14 10:30 10:45 11:00 Temp 97.8 97.8 Pulse 150 146 144 132 Resp 30 38 36 28 B/P (MAP) 174/86 (115) Pulse Ox 98 99 99 100 O2 Delivery Room Air 11/18/18 11/18/18 11/18/18 11/18/18 11:15 12:59 13:00 14:00 Temp 98.0 98.1 98.0 98.1 Pulse 132 115 119 Resp 32 16 16 B/P (MAP) 111/82 (92) 99/65 (76) Pulse Ox 100 2 99 O2 Delivery Nasal Cannula Nasal Cannula Nasal Cannula O2 Flow Rate 2.0 2.0 11/18/18 11/18/18 11/18/18 11/18/18 15:00 15:54 16:00 17:00 Pulse 112 107 99 Resp 18 20 B/P (MAP) 106/62 (77) 147/68 (94) 135/64 (87) Pulse Ox 98 99 100 O2 Delivery Nasal Cannula Nasal Cannula Nasal Cannula Nasal Cannula O2 Flow Rate 2.0 2.0 2.0 2.0 5/12/0211/18/18 11/18/18 11/18/18 18:00 19:00 19:53 20:00 Temp 98.7 98.7 Pulse 104 102 96 Resp 18 16 15 12 B/P (MAP) 126/ 138/59 (85) 118/51 (73) Pulse Ox 100 100 96 98 O2 Delivery Nasal Cannula Nasal Cannula Nasal Cannula Nasal Cannula O2 Flow Rate 2.0 2.0 2.0 2.0 11/18/18 11/18/18 11/18/18 11/18/18 20:00 21:00 22:00 23:00 Pulse 86 86 86 Resp 16 22 18 B/P (MAP) 93/51 (65) 118/51 (73) 131/46 (74) Pulse Ox 97 98 98 O2 Delivery Nasal Cannula Nasal Cannula Nasal Cannula Nasal Cannula O2 Flow Rate 2.0 2.0 2.0 2.0 11/18/18 11/18/18 11/19/18 11/19/18 23:20 23:59 00:00 01:00 Temp 98.2 98.2 Pulse 86 80 Resp 18 18 18 B/P (MAP) 114/63 (80) 114/63 (80) Pulse Ox 99 100 O2 Delivery Nasal Cannula Nasal Cannula Nasal Cannula Nasal Cannula O2 Flow Rate 2.0 2.0 2.0 2.0 11/19/18 11/19/18 11/19/18 11/19/18 02:00 02:52 03:00 03:22 Pulse 76 84 Resp 16 18 18 19 B/P (MAP) 97/46 (63) 114/62 (79) Pulse Ox 100 100 100 97 O2 Delivery Nasal Cannula Nasal Cannula Nasal Cannula Nasal Cannula O2 Flow Rate 2.0 2.0 2.0 2.0 11/19/18 11/19/18 11/19/18 11/19/18 04:00 04:00 05:00 06:00 Temp 98.2 98.2 Pulse 78 74 74 Resp 18 18 18 B/P (MAP) 119/55 (76) 109/52 (71) 91/51 (64) Pulse Ox 100 100 100 O2 Delivery Nasal Cannula Nasal Cannula Nasal Cannula Nasal Cannula O2 Flow Rate 2.0 2.0 2.0 2.0 11/19/18 11/19/18 11/19/18 08:23 09:10 09:24 Pulse 78 74 Resp 12 10 15 B/P (MAP) 115/59 (77) 110/58 (75) Pulse Ox 99 100 100 O2 Delivery Nasal Cannula Nasal Cannula Nasal Cannula O2 Flow Rate 2.0 2.0 2.0 Intake and Output 11/18/18 11/18/18 11/19/18 15:00 23:00 07:00 Intake Total 3250 ml 3333.6667 ml 2163 ml Output Total 125 ml 540 ml 510 ml Balance 3125 ml 2793.6667 ml 1653 ml ALBERTO HERNANDEZ III DO November 19, 2018 09:51
--- NOTE | 2018-11-19 10:42 | PDOC2 ---
CONSULT Date of Consult Date of Consult DATE: 11/19/18 TIME: 10:38 Reason for Consult Reason for Consult: AUGUST Referring Physician Referring Physician: DOROTA Identification/Chief Complaint Chief Complaint CONFUSED Source Source: Chart review History of Present Illness Reason for Visit: THIS IS A 63 YR OLD ADMITTED WITH CONFUSION AND NOTED TO BE IN SEVERE MET ACIDOSIS DUE TO DKA. BG OVER 800. CR OF 2.5. NO HX OF ANY CKD NOTED. SHE HAS HYPERNATREMIA AND HYPOKALEMIA WELL. SHE IS ALSO NOTED TO HAVE LEUCOCYTOSIS AND FINDINGS WORRISOME FOR SEPSIS. UA NEG FOR INFECTION BUT POS FOR GLUCOSURIA AND KETONURIA. MILD HYPOTENSION ON ADMIT Past Medical History Cardiovascular: HTN Pulmonary: No pertinent hx CENTRAL NERVOUS SYSTEM: Dementia (Lewy Body) GI: No pertinent hx Heme/Onc: No pertinent hx Hepatobiliary: No pertinent hx Psych: Bipolar, Psychosis Rheumatologic: No pertinent hx Infectious disease: No pertinent hx ENT: No pertinent hx Renal/: No pertinent hx Endocrine: Diabetes Dermatology: No pertinent hx Past Surgical History Past Surgical History: Other (RLE fracture surgery) Family History Family History: Alzheimer's Disease, Heart Disease Social History No ALCOHOL: none Drugs: None Current Problem List Problem List Problems Medical Problems: (1) Acute renal failure Status: Acute (2) Altered mental status Status: Acute (3) DKA (diabetic ketoacidoses) Status: Acute (4) Hypermagnesemia Status: Acute (5) Hypernatremia Status: Acute (6) Hyperphosphatemia Status: Acute (7) Severe sepsis Status: Acute (8) Tachycardia Status: Acute Current Medications Current Medications Current Medications Sodium Chloride 1,000 ml @ 1,000 mls/hr Q1H IV Last administered on 11/18/18at 10:49; Start 11/18/18 at 10:28; Stop 11/18/18 at 11:27; Status DC Sodium Chloride 1,000 ml @ 1,000 mls/hr 1X ONCE IV Last administered on 11/18/18at 11:15; Start 11/18/18 at 10:30; Stop 11/18/18 at 13:34; Status DC Insulin Human Regular (HumuLIN R VIAL) 10 unit 1X ONCE IV Last administered on 11/18/18at 11:16; Start 11/18/18 at 10:30; Stop 11/18/18 at 10:35; Status DC Insulin Human Regular 150 ml @ 0 mls/hr 1X ONCE IV Last administered on 11/18/18at 11:24; Start 11/18/18 at 10:45; Stop 11/18/18 at 10:46; Status DC Sodium Chloride 1,000 ml @ 1,000 mls/hr 1X ONCE IV ; Start 11/18/18 at 11:30; Stop 11/18/18 at 12:29; Status Cancel Ceftriaxone Sodium (Rocephin) 1 gm 1X ONCE IVP Last administered on 11/18/18at 11:48; Start 11/18/18 at 11:30; Stop 11/18/18 at 11:33; Status DC Vancomycin HCl 250 ml @ 250 mls/hr 1X ONCE IV Last administered on 11/18/18at 11:53; Start 11/18/18 at 11:30; Stop 11/18/18 at 12:29; Status DC Sodium Chloride 1,000 ml @ 150 mls/hr Q6H40M IV ; Start 11/18/18 at 12:00; Stop 11/18/18 at 15:15; Status DC Divalproex Sodium (Depakote Er) 500 mg QHS PO ; Start 11/18/18 at 21:00 Trazodone HCl (Desyrel) 100 mg QHS PO ; Start 11/18/18 at 21:00 Olanzapine (ZyPREXA) 20 mg QHS PO ; Start 11/18/18 at 21:00 Non-Formulary Medication (Trazodone Hcl ) 1 tab QHS PO ; Start 11/18/18 at 21:00; Status UNV Olanzapine (ZyPREXA IM) 10 mg PRN BID PRN IM SCHIZOPHRENIA Last administered on 11/18/18at 13:40; Start 11/18/18 at 13:30 Sodium Chloride 2,000 ml @ 0 mls/hr 1X ONCE IV ; Start 11/18/18 at 13:45; Stop 11/18/18 at 13:45; Status DC Sodium Chloride 1,000 ml @ 0 mls/hr Q1H IV Last administered on 11/18/18at 15:00; Start 11/18/18 at 14:00; Stop 11/18/18 at 15:01; Status DC Dextrose/Sodium Chloride 1,000 ml @ 250 mls/hr 1X ONCE IV Last administered on 11/18/18at 14:08; Start 11/18/18 at 14:15; Stop 11/18/18 at 19:28; Status DC Fentanyl Citrate 30 ml @ 0 mls/hr CONT PRN IV SEE PROTOCOL; Start 11/18/18 at 14:15; Status UNV Chlorhexidine Gluconate (Peridex) 15 ml BID MM ; Start 11/18/18 at 21:00; Status UNV Midazolam HCl 100 ml @ 0 mls/hr CONT PRN IV SEE PROTOCOL; Start 11/18/18 at 14:15; Status UNV Fentanyl Citrate 30 ml @ 0 mls/hr CONT PRN IV SEE PROTOCOL; Start 11/18/18 at 14:30; Status UNV Midazolam HCl 100 ml @ 0 mls/hr CONT PRN IV SEE PROTOCOL; Start 11/18/18 at 14:30; Status UNV Potassium Chloride/Water 100 ml @ 100 mls/hr Q1H IV Last administered on 11/18/18at 18:33; Start 11/18/18 at 15:00; Stop 11/18/18 at 18:59; Status DC Potassium Phosphate 20 mmol/ Sodium Chloride 256.6667 ml @ 128.... Q2H IV Last administered on 11/18/18at 17:28; Start 11/18/18 at 15:00; Stop 11/18/18 at 18:59; Status DC Potassium Phosphate 13.6 mmol/Dextrose 104.5333 ml @ 52.267 m... Q2H IV ; Start 11/18/18 at 15:15; Stop 11/18/18 at 19:14; Status UNV Ziprasidone (Geodon Im) 20 mg 1X ONCE IM ; Start 11/18/18 at 16:15; Stop 11/18/18 at 16:16; Status DC Ceftriaxone Sodium (Rocephin) 1 gm Q24H IVP ; Start 11/19/18 at 12:00 Dextrose/Sodium Chloride 1,000 ml @ 250 mls/hr 1X ONCE IV Last administered on 11/18/18at 17:54; Start 11/18/18 at 17:45; Stop 11/18/18 at 19:28; Status DC Insulin Glargine (Lantus) 30 units QHS SQ Last administered on 11/18/18at 19:54; Start 11/18/18 at 21:00 Insulin Human Lispro (HumaLOG) 10 units TIDWMEALS SQ ; Start 11/19/18 at 08:00 Insulin Human Lispro (HumaLOG) 5 units Q6HRS SQ ; Start 11/19/18 at 00:00 Fentanyl Citrate (Fentanyl 2ml Vial) 25 mcg PRN Q3HRS PRN IV PAIN Last administered on 11/19/18at 09:24; Start 11/18/18 at 19:30 Sodium Chloride 1,000 ml @ 125 mls/hr Q8H IV Last administered on 11/19/18at 01:09; Start 11/18/18 at 19:30 Dextrose (Dextrose 50%-Water Syringe) 12.5 gm PRN Q15MIN PRN IV SEE COMMENTS Last administered on 11/19/18at 08:17; Start 11/18/18 at 19:45 Amino Acids/ Glycerin/ Electrolytes 1,000 ml @ 75 mls/hr [id number] IV ; Start 11/19/18 at 10:30 Active Scripts Active Reported Divalproex Sodium Er (Divalproex Sodium) 500 Mg Tab.er.24h 1 Tab PO QHS Trazodone Hcl 100 Mg Tablet 1 Tab PO QHS Trazodone Hcl 50 Mg Tablet 1 Tab PO QHS Olanzapine 20 Mg Tablet 1 Tab PO QHS Humalog (Insulin Lispro) 100 Unit/1 Ml Cartridge 10 Unit SQ TIDWMEALS Lantus (Insulin Glargine,Hum.rec.anlog) 100 Unit/1 Ml Vial 30 Unit SQ HS Allergies Allergies: Coded Allergies: No Known Drug Allergies (Unverified , 07/26/13) ROS Review of System UNABLE TO OBTAIN Physical Exam General: Cooperative HEENT: Atraumatic, PERRLA Lungs: Clear to auscultation, Other (TACHYPNEA) Heart: Other (TACHY) Abdomen: Normal bowel sounds, Soft, No tenderness Extremities: No cyanosis, No edema Skin: No breakdown Neuro: Other (CONFUSED) Psych/Mental Status: Other (CONFUSED) MUSCULOSKELETAL: No joint tenderness, No deformity, No swelling Vitals VITALS Vital Signs Date Time Temp Pulse Resp B/P (MAP) Pulse Ox O2 Delivery O2 Flow Rate FiO2 11/19/18 10:07 99 Nasal Cannula 2.0 11/19/18 10:04 77 12 96/52 (67) 11/19/18 05:00 98.2 98.2 Labs Labs Laboratory Tests Test 11/18/18 10:20 11/18/18 10:45 11/18/18 10:50 11/18/18 10:55 Sodium Level 150 mmol/L (136-145) Potassium Level 4.6 mmol/L (3.5-5.1) Chloride Level 108 mmol/L (98-107) Carbon Dioxide Level 7 mmol/L (21-32) Anion Gap 35 (6-14) Blood Urea Nitrogen 51 mg/dL (7-20) Creatinine 2.5 mg/dL (0.6-1.0) Estimated GFR (Cockcroft-Gault) 19.5 BUN/Creatinine Ratio 20 (6-20) Glucose Level 849 mg/dL (70-99) Lactic Acid Level 8.3 mmol/L (0.4-2.0) Calcium Level 9.9 mg/dL (8.5-10.1) Phosphorus Level 6.5 mg/dL (2.6-4.7) Magnesium Level 2.5 mg/dL (1.8-2.4) Total Bilirubin 0.7 mg/dL (0.2-1.0) Aspartate Amino Transf (AST/SGOT) 25 U/L (15-37) Alanine Aminotransferase (ALT/SGPT) 26 U/L (14-59) Alkaline Phosphatase 166 U/L (46-116) Total Protein 8.1 g/dL (6.4-8.2) Albumin 3.6 g/dL (3.4-5.0) Albumin/Globulin Ratio 0.8 (1.0-1.7) Acetone Level Mod pos (NEG) O2 Saturation 97 % (92-99) Arterial Blood pH 7.18 (7.35-7.45) Arterial Blood pCO2 at Patient Temp < 15 mmHg (35-46) Arterial Blood pO2 at Patient Temp 121 mmHg (65-108) Arterial Blood HCO3 5 mmol/L (21-28) Arterial Blood Base Excess -21 mmol/L (-3-3) FiO2 28 Urine Collection Type Unknown Urine Color Yellow Urine Clarity Clear Urine pH 5.0 Urine Specific [place] >=1.030 Urine Protein Negative mg/dL (NEG-TRACE) Urine Glucose (UA) >=1000 mg/dL (NEG) Urine Ketones (Stick) 40 mg/dL (NEG) Urine Blood Small (NEG) Urine Nitrite Negative (NEG) Urine Bilirubin Negative (NEG) Urine Urobilinogen Dipstick 0.2 mg/dL (0.2 mg/dL) Urine Leukocyte Esterase Negative (NEG) Urine RBC 3-5 /HPF (0-2) Urine WBC 1-4 /HPF (0-4) Urine Squamous Epithelial Cells Mod /LPF Urine Amorphous Sediment Present /HPF Urine Bacteria Few /HPF (0-FEW) Urine Hyaline Casts Few /HPF Urine Mucus Mod /LPF White Blood Count 25.2 x10^3/uL (4.0-11.0) Red Blood Count 4.57 x10^6/uL (3.50-5.40) Hemoglobin 13.2 g/dL (12.0-15.5) Hematocrit 43.1 % (36.0-47.0) Mean Corpuscular Volume 94 fL (79-100) Mean Corpuscular Hemoglobin 29 pg (25-35) Mean Corpuscular Hemoglobin Concent 31 g/dL (31-37) Red Cell Distribution Width 15.7 % (11.5-14.5) Platelet Count 454 x10^3/uL (140-400) Neutrophils (%) (Auto) 90 % (31-73) Lymphocytes (%) (Auto) 4 % (24-48) Monocytes (%) (Auto) 6 % (0-9) Eosinophils (%) (Auto) 0 % (0-3) Basophils (%) (Auto) 0 % (0-3) Neutrophils # (Auto) 22.8 x10^3uL (1.8-7.7) Lymphocytes # (Auto) 0.9 x10^3/uL (1.0-4.8) Monocytes # (Auto) 1.5 x10^3/uL (0.0-1.1) Eosinophils # (Auto) 0.0 x10^3/uL (0.0-0.7) Basophils # (Auto) 0.0 x10^3/uL (0.0-0.2) Segmented Neutrophils % 83 % (35-66) Band Neutrophils % 6 % (0-9) Lymphocytes % 4 % (24-48) Monocytes % 4 % (0-10) Basophils % 1 % (0-3) Metamyelocytes % 1 % (0-0) Myelocytes % 1 % (0-0) Platelet Estimate Increased (ADEQUATE) Polychromasia Mod Anisocytosis Slight D-Dimer (Mavis) 3.89 ug/mlFEU (0.00-0.50) Test 11/18/18 12:56 11/18/18 13:52 11/18/18 14:13 11/18/18 14:15 Glucose (Fingerstick) 322 mg/dL (70-99) 186 mg/dL (70-99) 192 mg/dL (70-99) Sodium Level 159 mmol/L (136-145) Potassium Level 3.5 mmol/L (3.5-5.1) Chloride Level 123 mmol/L (98-107) Carbon Dioxide Level 19 mmol/L (21-32) Anion Gap 17 (6-14) Blood Urea Nitrogen 46 mg/dL (7-20) Creatinine 1.8 mg/dL (0.6-1.0) Estimated GFR (Cockcroft-Gault) 28.5 Glucose Level 224 mg/dL (70-99) Lactic Acid Level 5.3 mmol/L (0.4-2.0) Calcium Level 8.9 mg/dL (8.5-10.1) Phosphorus Level 1.5 mg/dL (2.6-4.7) Magnesium Level 2.0 mg/dL (1.8-2.4) Valproic Acid (Depakene) Level < 3 mcg/mL (50-100) Valproic Acid Last Dose Date Unk Valproic Acid Last Dose Time Unk Test 11/18/18 15:34 11/18/18 16:31 11/18/18 17:32 11/18/18 18:10 Glucose (Fingerstick) 166 mg/dL (70-99) 165 mg/dL (70-99) 149 mg/dL (70-99) Sodium Level 154 mmol/L (136-145) Potassium Level 4.2 mmol/L (3.5-5.1) Chloride Level 121 mmol/L (98-107) Carbon Dioxide Level 20 mmol/L (21-32) Anion Gap 13 (6-14) Blood Urea Nitrogen 38 mg/dL (7-20) Creatinine 1.3 mg/dL (0.6-1.0) Estimated GFR (Cockcroft-Gault) 41.5 Glucose Level 152 mg/dL (70-99) Calcium Level 7.9 mg/dL (8.5-10.1) Phosphorus Level 4.0 mg/dL (2.6-4.7) Magnesium Level 1.8 mg/dL (1.8-2.4) Albumin 2.4 g/dL (3.4-5.0) Test 11/18/18 18:26 11/18/18 19:39 11/18/18 20:54 11/19/18 00:19 Glucose (Fingerstick) 118 mg/dL (70-99) 123 mg/dL (70-99) 122 mg/dL (70-99) 28 mg/dL (70-99) Test 11/19/18 00:30 11/19/18 00:38 11/19/18 01:32 11/19/18 02:53 Glucose Level 192 mg/dL (70-99) Glucose (Fingerstick) 141 mg/dL (70-99) 102 mg/dL (70-99) 70 mg/dL (70-99) Test 11/19/18 03:50 11/19/18 04:48 11/19/18 06:30 11/19/18 07:51 White Blood Count 16.8 x10^3/uL (4.0-11.0) Red Blood Count 3.59 x10^6/uL (3.50-5.40) Hemoglobin 10.4 g/dL (12.0-15.5) Hematocrit 31.7 % (36.0-47.0) Mean Corpuscular Volume 88 fL (79-100) Mean Corpuscular Hemoglobin 29 pg (25-35) Mean Corpuscular Hemoglobin Concent 33 g/dL (31-37) Red Cell Distribution Width 14.7 % (11.5-14.5) Platelet Count 318 x10^3/uL (140-400) Neutrophils (%) (Auto) 76 % (31-73) Lymphocytes (%) (Auto) 19 % (24-48) Monocytes (%) (Auto) 4 % (0-9) Eosinophils (%) (Auto) 0 % (0-3) Basophils (%) (Auto) 1 % (0-3) Neutrophils # (Auto) 12.8 x10^3uL (1.8-7.7) Lymphocytes # (Auto) 3.2 x10^3/uL (1.0-4.8) Monocytes # (Auto) 0.7 x10^3/uL (0.0-1.1) Eosinophils # (Auto) 0.0 x10^3/uL (0.0-0.7) Basophils # (Auto) 0.1 x10^3/uL (0.0-0.2) Sodium Level 151 mmol/L (136-145) Potassium Level 3.5 mmol/L (3.5-5.1) Chloride Level 116 mmol/L (98-107) Carbon Dioxide Level 23 mmol/L (21-32) Anion Gap 12 (6-14) Blood Urea Nitrogen 24 mg/dL (7-20) Creatinine 0.8 mg/dL (0.6-1.0) Estimated GFR (Cockcroft-Gault) 72.7 Glucose Level 53 mg/dL (70-99) Calcium Level 8.2 mg/dL (8.5-10.1) Phosphorus Level 3.4 mg/dL (2.6-4.7) Albumin 2.5 g/dL (3.4-5.0) Glucose (Fingerstick) 141 mg/dL (70-99) 94 mg/dL (70-99) 60 mg/dL (70-99) Test 11/19/18 08:45 Glucose (Fingerstick) 117 mg/dL (70-99) Laboratory Tests Test 11/18/18 10:45 11/18/18 10:50 11/18/18 10:55 11/18/18 12:56 O2 Saturation 97 % (92-99) Arterial Blood pH 7.18 (7.35-7.45) Arterial Blood pCO2 at Patient Temp < 15 mmHg (35-46) Arterial Blood pO2 at Patient Temp 121 mmHg (65-108) Arterial Blood HCO3 5 mmol/L (21-28) Arterial Blood Base Excess -21 mmol/L (-3-3) FiO2 28 Urine Collection Type Unknown Urine Color Yellow Urine Clarity Clear Urine pH 5.0 Urine Specific [place] >=1.030 Urine Protein Negative mg/dL (NEG-TRACE) Urine Glucose (UA) >=1000 mg/dL (NEG) Urine Ketones (Stick) 40 mg/dL (NEG) Urine Blood Small (NEG) Urine Nitrite Negative (NEG) Urine Bilirubin Negative (NEG) Urine Urobilinogen Dipstick 0.2 mg/dL (0.2 mg/dL) Urine Leukocyte Esterase Negative (NEG) Urine RBC 3-5 /HPF (0-2) Urine WBC 1-4 /HPF (0-4) Urine Squamous Epithelial Cells Mod /LPF Urine Amorphous Sediment Present /HPF Urine Bacteria Few /HPF (0-FEW) Urine Hyaline Casts Few /HPF Urine Mucus Mod /LPF White Blood Count 25.2 x10^3/uL (4.0-11.0) Red Blood Count 4.57 x10^6/uL (3.50-5.40) Hemoglobin 13.2 g/dL (12.0-15.5) Hematocrit 43.1 % (36.0-47.0) Mean Corpuscular Volume 94 fL (79-100) Mean Corpuscular Hemoglobin 29 pg (25-35) Mean Corpuscular Hemoglobin Concent 31 g/dL (31-37) Red Cell Distribution Width 15.7 % (11.5-14.5) Platelet Count 454 x10^3/uL (140-400) Neutrophils (%) (Auto) 90 % (31-73) Lymphocytes (%) (Auto) 4 % (24-48) Monocytes (%) (Auto) 6 % (0-9) Eosinophils (%) (Auto) 0 % (0-3) Basophils (%) (Auto) 0 % (0-3) Neutrophils # (Auto) 22.8 x10^3uL (1.8-7.7) Lymphocytes # (Auto) 0.9 x10^3/uL (1.0-4.8) Monocytes # (Auto) 1.5 x10^3/uL (0.0-1.1) Eosinophils # (Auto) 0.0 x10^3/uL (0.0-0.7) Basophils # (Auto) 0.0 x10^3/uL (0.0-0.2) Segmented Neutrophils % 83 % (35-66) Band Neutrophils % 6 % (0-9) Lymphocytes % 4 % (24-48) Monocytes % 4 % (0-10) Basophils % 1 % (0-3) Metamyelocytes % 1 % (0-0) Myelocytes % 1 % (0-0) Platelet Estimate Increased (ADEQUATE) Polychromasia Mod Anisocytosis Slight D-Dimer (Mavis) 3.89 ug/mlFEU (0.00-0.50) Glucose (Fingerstick) 322 mg/dL (70-99) Test 11/18/18 13:52 11/18/18 14:13 11/18/18 14:15 11/18/18 15:34 Glucose (Fingerstick) 186 mg/dL (70-99) 192 mg/dL (70-99) 166 mg/dL (70-99) Sodium Level 159 mmol/L (136-145) Potassium Level 3.5 mmol/L (3.5-5.1) Chloride Level 123 mmol/L (98-107) Carbon Dioxide Level 19 mmol/L (21-32) Anion Gap 17 (6-14) Blood Urea Nitrogen 46 mg/dL (7-20) Creatinine 1.8 mg/dL (0.6-1.0) Estimated GFR (Cockcroft-Gault) 28.5 Glucose Level 224 mg/dL (70-99) Lactic Acid Level 5.3 mmol/L (0.4-2.0) Calcium Level 8.9 mg/dL (8.5-10.1) Phosphorus Level 1.5 mg/dL (2.6-4.7) Magnesium Level 2.0 mg/dL (1.8-2.4) Valproic Acid (Depakene) Level < 3 mcg/mL (50-100) Valproic Acid Last Dose Date Unk Valproic Acid Last Dose Time Unk Test 11/18/18 16:31 11/18/18 17:32 11/18/18 18:10 11/18/18 18:26 Glucose (Fingerstick) 165 mg/dL (70-99) 149 mg/dL (70-99) 118 mg/dL (70-99) Sodium Level 154 mmol/L (136-145) Potassium Level 4.2 mmol/L (3.5-5.1) Chloride Level 121 mmol/L (98-107) Carbon Dioxide Level 20 mmol/L (21-32) Anion Gap 13 (6-14) Blood Urea Nitrogen 38 mg/dL (7-20) Creatinine 1.3 mg/dL (0.6-1.0) Estimated GFR (Cockcroft-Gault) 41.5 Glucose Level 152 mg/dL (70-99) Calcium Level 7.9 mg/dL (8.5-10.1) Phosphorus Level 4.0 mg/dL (2.6-4.7) Magnesium Level 1.8 mg/dL (1.8-2.4) Albumin 2.4 g/dL (3.4-5.0) Test 11/18/18 19:39 11/18/18 20:54 11/19/18 00:19 11/19/18 00:30 Glucose (Fingerstick) 123 mg/dL (70-99) 122 mg/dL (70-99) 28 mg/dL (70-99) Glucose Level 192 mg/dL (70-99) Test 11/19/18 00:38 11/19/18 01:32 11/19/18 02:53 11/19/18 03:50 Glucose (Fingerstick) 141 mg/dL (70-99) 102 mg/dL (70-99) 70 mg/dL (70-99) White Blood Count 16.8 x10^3/uL (4.0-11.0) Red Blood Count 3.59 x10^6/uL (3.50-5.40) Hemoglobin 10.4 g/dL (12.0-15.5) Hematocrit 31.7 % (36.0-47.0) Mean Corpuscular Volume 88 fL (79-100) Mean Corpuscular Hemoglobin 29 pg (25-35) Mean Corpuscular Hemoglobin Concent 33 g/dL (31-37) Red Cell Distribution Width 14.7 % (11.5-14.5) Platelet Count 318 x10^3/uL (140-400) Neutrophils (%) (Auto) 76 % (31-73) Lymphocytes (%) (Auto) 19 % (24-48) Monocytes (%) (Auto) 4 % (0-9) Eosinophils (%) (Auto) 0 % (0-3) Basophils (%) (Auto) 1 % (0-3) Neutrophils # (Auto) 12.8 x10^3uL (1.8-7.7) Lymphocytes # (Auto) 3.2 x10^3/uL (1.0-4.8) Monocytes # (Auto) 0.7 x10^3/uL (0.0-1.1) Eosinophils # (Auto) 0.0 x10^3/uL (0.0-0.7) Basophils # (Auto) 0.1 x10^3/uL (0.0-0.2) Sodium Level 151 mmol/L (136-145) Potassium Level 3.5 mmol/L (3.5-5.1) Chloride Level 116 mmol/L (98-107) Carbon Dioxide Level 23 mmol/L (21-32) Anion Gap 12 (6-14) Blood Urea Nitrogen 24 mg/dL (7-20) Creatinine 0.8 mg/dL (0.6-1.0) Estimated GFR (Cockcroft-Gault) 72.7 Glucose Level 53 mg/dL (70-99) Calcium Level 8.2 mg/dL (8.5-10.1) Phosphorus Level 3.4 mg/dL (2.6-4.7) Albumin 2.5 g/dL (3.4-5.0) Test 11/19/18 04:48 11/19/18 06:30 11/19/18 07:51 11/19/18 08:45 Glucose (Fingerstick) 141 mg/dL (70-99) 94 mg/dL (70-99) 60 mg/dL (70-99) 117 mg/dL (70-99) Assessment/Plan Assessment/Plan IMP AUGUST DKA DEHYDRATION ENCEPHALOPATHY SEPSIS HYPERNATREMIA LEUCOCYTOSIS PLAN HYDRATION DKA PROTOCOL ANTIBIOTICS REPLACE ELECTROLYTES NEEDED WILL FOLLOW TAYLOR NAIDU MD November 19, 2018 10:42
[2018-11-19] MEDS: AMINO AC 3%/ELECTROLYTE/GLYCER 1,000 ML IV SCH ×2 (11:25→23:50)
[2018-11-19] MEDS: cefTRIAXone IV Push 1 GM VIAL. IVP SCH (11:25)
--- NOTE | 2018-11-19 12:30 | NUR ---
Received from ICU per bed, alert to name accompanied by spouse, DANO to RLE, SCD to LLE, lawrence catheter to dependent drainage with yellow urine, RLE incision CARISA with laly intact, bruising throughout body, FSBS checked on transfer 150, PPN infusing at 70cc/hr will contact Dr. Rendon regarding IVF & need for CT of head, will continue to observe
--- NOTE | 2018-11-19 12:46 | NUR ---
0330 1/2 NS non-administered r/t previous bag still running.
--- NOTE | 2018-11-19 15:10 | NUR ---
SS following for discharge planning. SS received notification that pt is from [facility], ; fax [phone]. SS contacted [facility] to verify pt's previous placement. 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
[2018-11-19] MEDS: INSULIN GLARGINE 300 UNITS/3 ML INSULN.PEN. SQ SCH (21:00)
[2018-11-19] MEDS: OLANZapine 5 MG TABLET PO SCH (21:05)
[2018-11-19] MEDS: traZODone 100 MG TABLET. PO SCH (21:05)
[2018-11-19] MEDS: DIVALPROEX EXTENDED RELEASE 500 MG TAB.ER.24H. PO SCH (21:05)
[2018-11-20] VITALS (16 sets, daily range): BP systolic 92–148; BP diastolic 43–90
[2018-11-20 06:24] LABS: BASO % 0 % (0-3); EOS # 0.1 x10^3/uL (0.0-0.7); EOS % 1 % (0-3); HEMOGLOBIN 10.7 g/dL (12.0-15.5); LYMPH # 1.1 x10^3/uL (1.0-4.8); LYMPH % 17 % (24-48); MEAN CORPUSCULAR HEMOGLOBIN 29 pg (25-35); MEAN CORPUSCULAR HGB CONC 33 g/dL (31-37); MEAN CORPUSCULAR VOLUME 88 fL (79-100); MONO # 0.4 x10^3/uL (0.0-1.1); MONO % 5 % (0-9); NEUT # 5.1 x10^3uL (1.8-7.7); NEUT % 76 % (31-73); PLATELET COUNT 223 x10^3/uL (140-400); RED BLOOD COUNT 3.74 x10^6/uL (3.50-5.40); RED CELL DISTRIBUTION WIDTH 14.4 % (11.5-14.5); WHITE BLOOD COUNT 6.8 x10^3/uL (4.0-11.0)
--- NOTE | 2018-11-20 09:20 | NUR ---
COM[employer]ED [employer] OPERATOR attempting to assist 412 with feeding. Pt is having difficulty swallowing and coughs with each bite. at bedside states pt was alert and oriented yesterday, ate dinner without difficulty. Upon assessing the pt she is lethargic, diaphoretic, eyes rolling in back of her head, unable to answer any questions. VS T:99.9 ax, BP 108/86, HR 108 RR 16 97% on 2L NC. Checked fingerstick 534. Paged Dr. Rubio. Received orders for stat head CT, ABG, labs, and to transfer to ICU. Will place orders and continue to monitor until transfer. Addendum: 11/20/18 at 1127 by KIRSTEN MISHRA RN Fingerstick 524 not 534.
[2018-11-20] MEDS: fentaNYL PF VIAL 100 MCG/2 ML VIAL IV PRN ×3 (09:28→18:12)
[2018-11-20] MEDS: INSULIN LISPRO 300 UNITS/3 ML INSULN.PEN. SQ SCH ×4 (09:29→17:00)
[2018-11-20 10:00] LABS: CREATININE 0.9 mg/dL (0.6-1.0); GFR 63.4; MAGNESIUM 1.9 mg/dL (1.8-2.4); POTASSIUM 5.2 mmol/L (3.5-5.1)
[2018-11-20] MEDS ORDERED: INSULIN LISPRO 300 UNITS/3 ML INSULN.PEN. SQ ONE (10:00)
--- NOTE | 2018-11-20 10:10 | NUR ---
Pt transferring to ICU rm 114. Called and gave report to NIURKA Villegas. Pt was taken via bed to CT and ICU charge out clerk will meet her in CT. All belongings were packed and taken to room by MARISSA.
[2018-11-20] MEDS ORDERED: IV NORMAL SALINE 1000ML BAG 1,000 ML IV SCH ×2 (10:23→10:26)
[2018-11-20] MEDS: IV DEXTROSE 5 %-0.45 % NACL 1,000 ML IV SCH ×2 (10:26→13:33)
[2018-11-20] MEDS ORDERED: IV 1/2 NORMAL SALINE 1,000 ML IV SCH (10:26)
[2018-11-20] MEDS ORDERED: INSULIN REGULAR VIAL 150 UNIT in 0.9 % SODIUM CHLORIDE 150ML 150 ML IV PRN ×2 (10:30)
[2018-11-20] MEDS ORDERED: POTASSIUM CHLORIDE 10MEQ 100 ML IV PRN ×2 (10:30)
--- NOTE | 2018-11-20 10:30 | NUR ---
Received report from NIURKA Delgado, tranferred patient from CT to ICU room. Started DKA protocol. Spouse at bedside.
--- NOTE | 2018-11-20 10:39 | RAD ---
CT HEAD WO CONTRAST Indication: Loss of consciousness. Exposure: One or more of the following individualized dose reduction techniques were utilized for this examination: 1. Automated exposure control 2. Adjustment of the mA and/or kV according to patient size 3. Use of iterative reconstruction technique. Technique: Standard imaging without intravenous contrast. There is moderate motion degradation. No evidence of acute intracranial hemorrhage, mass effect, midline shift or abnormal extra-axial fluid collection. There is some low density within the right frontal lobe adjacent to the midline likely encephalomalacia. There is enlargement of the lateral ventricles, appears similar to the prior study of December 03, 2014 as does the third ventricle enlargement. Fourth ventricle is not significantly enlarged. The orbits appear symmetric. No large scalp hematoma is seen. The visualized sinuses appear grossly clear. No evidence of acute skull abnormality. IMPRESSION: 1. Moderate motion degradation. 2. Small focus of hypoattenuation in the medial right frontal lobe likely chronic encephalomalacia or chronic ischemia. This may have been present on the prior study. 3. Stable ventriculomegaly. 4. No evidence of acute intracranial hemorrhage. Electronically signed by: Franco Martinez MD (11/20/2018 10:36 AM) [id number]
--- NOTE | 2018-11-20 10:55 | PDOC ---
Renal-Progress Notes Subjective Notes Notes NONE History of Present Illness Hx of present illness STABLE Vitals Vitals Vital Signs Date Time Temp Pulse Resp B/P (MAP) Pulse Ox O2 Delivery O2 Flow Rate FiO2 11/20/18 08:00 98.1 102 16 122/59 (80) 99 Room Air 98.1 11/20/18 07:52 2.0 Weight Weight [ ] I.O. Intake and Output Intake and Output 11/20/18 07:00 Intake Total 0 ml Output Total 3360 ml Balance -3360 ml Intake Oral 0 ml Output Urine Total 3360 ml # Bowel Movements 1 Labs Labs Laboratory Tests Test 11/19/18 11:39 11/19/18 12:08 11/19/18 12:33 11/19/18 17:02 Glucose (Fingerstick) 48 mg/dL (70-99) 193 mg/dL (70-99) 150 mg/dL (70-99) 174 mg/dL (70-99) Test 11/19/18 21:02 11/20/18 04:57 11/20/18 07:41 11/20/18 09:20 Glucose (Fingerstick) 124 mg/dL (70-99) 443 mg/dL (70-99) White Blood Count 6.8 x10^3/uL (4.0-11.0) Red Blood Count 3.74 x10^6/uL (3.50-5.40) Hemoglobin 10.7 g/dL (12.0-15.5) Hematocrit 33.0 % (36.0-47.0) Mean Corpuscular Volume 88 fL (79-100) Mean Corpuscular Hemoglobin 29 pg (25-35) Mean Corpuscular Hemoglobin Concent 33 g/dL (31-37) Red Cell Distribution Width 14.4 % (11.5-14.5) Platelet Count 223 x10^3/uL (140-400) Neutrophils (%) (Auto) 76 % (31-73) Lymphocytes (%) (Auto) 17 % (24-48) Monocytes (%) (Auto) 5 % (0-9) Eosinophils (%) (Auto) 1 % (0-3) Basophils (%) (Auto) 0 % (0-3) Neutrophils # (Auto) 5.1 x10^3uL (1.8-7.7) Lymphocytes # (Auto) 1.1 x10^3/uL (1.0-4.8) Monocytes # (Auto) 0.4 x10^3/uL (0.0-1.1) Eosinophils # (Auto) 0.1 x10^3/uL (0.0-0.7) Basophils # (Auto) 0.0 x10^3/uL (0.0-0.2) Sodium Level 139 mmol/L (136-145) Potassium Level 5.2 mmol/L (3.5-5.1) Chloride Level 103 mmol/L (98-107) Carbon Dioxide Level 16 mmol/L (21-32) Anion Gap 20 (6-14) Blood Urea Nitrogen 19 mg/dL (7-20) Creatinine 0.9 mg/dL (0.6-1.0) Estimated GFR (Cockcroft-Gault) 63.4 Glucose Level 577 mg/dL (70-99) Calcium Level 9.0 mg/dL (8.5-10.1) Phosphorus Level 3.0 mg/dL (2.6-4.7) Magnesium Level 1.9 mg/dL (1.8-2.4) Acetone Level Sm pos (NEG) Test 11/20/18 09:37 Glucose (Fingerstick) 524 mg/dL (70-99) Micro Micro Microbiology 11/18/18 Blood Culture - Preliminary, Resulted NO GROWTH AFTER 1 DAY Review of Systems Constitutional: yes: alert, oriented Ears/Nose/Throat: Yes: no symptom reported Eyes: Yes: no symptom reported Pulmonary: Yes no symptom reported Cardiovascular: Yes no symptom reported Gastrointestional: Yes: no symptom reported Genitourinary: Yes: no symptom reported Musculoskeletal: Yes: no symptom reported Skin: Yes no symptom reported Psychiatric/Neurological: Yes: no symptom reported Endocrine: Yes: no symptom reported Hematologic/Lymphatic: Yes: no symptom reported Physical Exam General Appearance: no apparent distress Skin: warm Respiratory: bilateral CTA Heart: S1S2 Abdomen: soft, bowel sounds present Genitourinary: bladder flat Extremities: pulses present Neurology: alert Assessment Assessment IMP AUGUST DKA DEHYDRATION ENCEPHALOPATHY SEPSIS HYPERNATREMIA LEUCOCYTOSIS HYPOKALEMIA PLAN HYDRATION DKA PROTOCOL UNTIL KETONURIA IS RESOLVED ANTIBIOTICS REPLACE ELECTROLYTES NEEDED CHECK UA TAYLOR NAIDU MD November 20, 2018 10:55
[2018-11-20 11:09] LABS: BASE EXCESS ABG -8 mmol/L (-3-3); HCO3 ABG 14 mmol/L (21-28); PCO2 ABG 21 mmHg (35-46); PO2 ABG 96 mmHg (65-108); SAT O2 ABG 97 % (92-99)
[2018-11-20 12:08] LABS: BILIRUBIN,URINE SMALL (NEG); CLARITY,URINE CLEAR; COLOR,URINE YELLOW; NITRITE,URINE NEGATIVE (NEG); PROTEIN,URINE NEGATIVE (NEG-TRACE); UROBILINOGEN,URINE 0.2 mg/dL (0.2 mg/dL)
[2018-11-20 12:21] LABS: BACTERIA,URINE FEW /HPF (0-FEW); SQUAMOUS EPITHELIAL CELL,UR FEW /LPF
[2018-11-20] MEDS: AMINO AC 3%/ELECTROLYTE/GLYCER 1,000 ML IV SCH (13:10)
[2018-11-20 15:00] LABS: FIO2 ABG 28
[2018-11-20] MEDS: cefTRIAXone IV Push 1 GM VIAL. IVP SCH (15:09)
[2018-11-20 16:04] LABS: CALCIUM 8.2 mg/dL (8.5-10.1); CREATININE 0.8 mg/dL (0.6-1.0); GFR 72.7; MAGNESIUM 1.9 mg/dL (1.8-2.4); PHOSPHORUS 1.9 mg/dL (2.6-4.7); POTASSIUM 3.5 mmol/L (3.5-5.1)
[2018-11-20] MEDS: INSULIN GLARGINE 300 UNITS/3 ML INSULN.PEN. SQ SCH (17:04)
--- NOTE | 2018-11-20 17:20 | PDOC ---
PROGRESS NOTES Chief Complaint Chief Complaint impression DKA Severe metabolic encephalopathy Bipolar Severe sepsis Hypernatremia Acute renal failure Tachycardia Small focus of hypoattenuation in the medial right frontal lobe likely chronic encephalomalacia or chronic ischemia. This may have been present on the prior study. Stable ventriculomegaly. No evidence of acute intracranial hemorrhage. apparently did not get hs dose of lantus last night 11/19 History of Present Illness History of Present Illness Patient is seen and examined in the ICU Her son is present Discussed with the nurse Review chart Patient really doesn't respond much appears quite ill glucose 517 moved to icu for insulin drip protocol 11/20, ct head requested 35 min cc time Vitals Vitals Vital Signs Date Time Temp Pulse Resp B/P (MAP) Pulse Ox O2 Delivery O2 Flow Rate FiO2 11/20/18 16:00 Nasal Cannula 2.0 11/20/18 16:00 97.6 78 12 106/53 (70) 95 97.6 Physical Exam General: Cooperative, mild distress Heart: Regular rate, Normal S1, Other (TACHY) Lungs: Clear Abdomen: Normal bowel sounds, Soft, No tenderness Extremities: No clubbing, No cyanosis, No edema Skin: No breakdown, No significant lesion Labs LABS CT HEAD WO CONTRAST Indication: Loss of consciousness. Exposure: One or more of the following individualized dose reduction techniques were utilized for this examination: 1. Automated exposure control 2. Adjustment of the mA and/or kV according to patient size 3. Use of iterative reconstruction technique. Technique: Standard imaging without intravenous contrast. There is moderate motion degradation. No evidence of acute intracranial hemorrhage, mass effect, midline shift or abnormal extra-axial fluid collection. There is some low density within the right frontal lobe adjacent to the midline likely encephalomalacia. There is enlargement of the lateral ventricles, appears similar to the prior study of December 03, 2014 as does the third ventricle enlargement. Fourth ventricle is not significantly enlarged. The orbits appear symmetric. No large scalp hematoma is seen. The visualized sinuses appear grossly clear. No evidence of acute skull abnormality. IMPRESSION: 1. Moderate motion degradation. 2. Small focus of hypoattenuation in the medial right frontal lobe likely chronic encephalomalacia or chronic ischemia. This may have been present on the prior study. 3. Stable ventriculomegaly. 4. No evidence of acute intracranial hemorrhage. Electronically signed by: Franco Martinez MD (11/20/2018 10:36 AM) [id number] Laboratory Tests Test 11/19/18 21:02 11/20/18 04:57 11/20/18 07:41 11/20/18 09:20 Glucose (Fingerstick) 124 mg/dL (70-99) 443 mg/dL (70-99) White Blood Count 6.8 x10^3/uL (4.0-11.0) Red Blood Count 3.74 x10^6/uL (3.50-5.40) Hemoglobin 10.7 g/dL (12.0-15.5) Hematocrit 33.0 % (36.0-47.0) Mean Corpuscular Volume 88 fL (79-100) Mean Corpuscular Hemoglobin 29 pg (25-35) Mean Corpuscular Hemoglobin Concent 33 g/dL (31-37) Red Cell Distribution Width 14.4 % (11.5-14.5) Platelet Count 223 x10^3/uL (140-400) Neutrophils (%) (Auto) 76 % (31-73) Lymphocytes (%) (Auto) 17 % (24-48) Monocytes (%) (Auto) 5 % (0-9) Eosinophils (%) (Auto) 1 % (0-3) Basophils (%) (Auto) 0 % (0-3) Neutrophils # (Auto) 5.1 x10^3uL (1.8-7.7) Lymphocytes # (Auto) 1.1 x10^3/uL (1.0-4.8) Monocytes # (Auto) 0.4 x10^3/uL (0.0-1.1) Eosinophils # (Auto) 0.1 x10^3/uL (0.0-0.7) Basophils # (Auto) 0.0 x10^3/uL (0.0-0.2) Sodium Level 139 mmol/L (136-145) Potassium Level 5.2 mmol/L (3.5-5.1) Chloride Level 103 mmol/L (98-107) Carbon Dioxide Level 16 mmol/L (21-32) Anion Gap 20 (6-14) Blood Urea Nitrogen 19 mg/dL (7-20) Creatinine 0.9 mg/dL (0.6-1.0) Estimated GFR (Cockcroft-Gault) 63.4 Glucose Level 577 mg/dL (70-99) Calcium Level 9.0 mg/dL (8.5-10.1) Phosphorus Level 3.0 mg/dL (2.6-4.7) Magnesium Level 1.9 mg/dL (1.8-2.4) Acetone Level Sm pos (NEG) Test 11/20/18 09:37 11/20/18 10:40 11/20/18 11:38 11/20/18 11:45 Glucose (Fingerstick) 524 mg/dL (70-99) 288 mg/dL (70-99) O2 Saturation 97 % (92-99) Arterial Blood pH 7.45 (7.35-7.45) Arterial Blood pCO2 at Patient Temp 21 mmHg (35-46) Arterial Blood pO2 at Patient Temp 96 mmHg (65-108) Arterial Blood HCO3 14 mmol/L (21-28) Arterial Blood Base Excess -8 mmol/L (-3-3) FiO2 28 Urine Collection Type Unknown Urine Color Yellow Urine Clarity Clear Urine pH 5.0 Urine Specific [place] 1.025 Urine Protein Negative mg/dL (NEG-TRACE) Urine Glucose (UA) >=1000 mg/dL (NEG) Urine Ketones (Stick) >=80 mg/dL (NEG) Urine Blood Negative (NEG) Urine Nitrite Negative (NEG) Urine Bilirubin Small (NEG) Urine Urobilinogen Dipstick 0.2 mg/dL (0.2 mg/dL) Urine Leukocyte Esterase Negative (NEG) Urine RBC 1-2 /HPF (0-2) Urine WBC 1-4 /HPF (0-4) Urine Squamous Epithelial Cells Few /LPF Urine Bacteria Few /HPF (0-FEW) Urine Mucus Mod /LPF Test 11/20/18 12:42 11/20/18 13:48 11/20/18 14:18 11/20/18 14:53 Glucose (Fingerstick) 176 mg/dL (70-99) 136 mg/dL (70-99) 156 mg/dL (70-99) Sodium Level 147 mmol/L (136-145) Potassium Level 3.5 mmol/L (3.5-5.1) Chloride Level 113 mmol/L (98-107) Carbon Dioxide Level 25 mmol/L (21-32) Anion Gap 9 (6-14) Blood Urea Nitrogen 16 mg/dL (7-20) Creatinine 0.8 mg/dL (0.6-1.0) Estimated GFR (Cockcroft-Gault) 72.7 Glucose Level 166 mg/dL (70-99) Calcium Level 8.2 mg/dL (8.5-10.1) Phosphorus Level 1.9 mg/dL (2.6-4.7) Magnesium Level 1.9 mg/dL (1.8-2.4) Test 11/20/18 15:57 Glucose (Fingerstick) 159 mg/dL (70-99) Assessment and Plan Assessmemt and Plan Problems Medical Problems: (1) Acute renal failure Status: Acute (2) Altered mental status Status: Acute (3) DKA (diabetic ketoacidoses) Status: Acute (4) Hypermagnesemia Status: Acute (5) Hypernatremia Status: Acute (6) Hyperphosphatemia Status: Acute (7) Severe sepsis Status: Acute (8) Tachycardia Status: Acute Comment Review of Relevant I have reviewed the following items kenyatta (where applicable) has been applied. Labs Laboratory Tests Test 11/18/18 17:32 11/18/18 18:10 11/18/18 18:26 11/18/18 19:39 Glucose (Fingerstick) 149 mg/dL (70-99) 118 mg/dL (70-99) 123 mg/dL (70-99) Sodium Level 154 mmol/L (136-145) Potassium Level 4.2 mmol/L (3.5-5.1) Chloride Level 121 mmol/L (98-107) Carbon Dioxide Level 20 mmol/L (21-32) Anion Gap 13 (6-14) Blood Urea Nitrogen 38 mg/dL (7-20) Creatinine 1.3 mg/dL (0.6-1.0) Estimated GFR (Cockcroft-Gault) 41.5 Glucose Level 152 mg/dL (70-99) Calcium Level 7.9 mg/dL (8.5-10.1) Phosphorus Level 4.0 mg/dL (2.6-4.7) Magnesium Level 1.8 mg/dL (1.8-2.4) Albumin 2.4 g/dL (3.4-5.0) Test 11/18/18 20:54 11/19/18 00:19 11/19/18 00:30 11/19/18 00:38 Glucose (Fingerstick) 122 mg/dL (70-99) 28 mg/dL (70-99) 141 mg/dL (70-99) Glucose Level 192 mg/dL (70-99) Test 11/19/18 01:32 11/19/18 02:53 11/19/18 03:50 11/19/18 04:48 Glucose (Fingerstick) 102 mg/dL (70-99) 70 mg/dL (70-99) 141 mg/dL (70-99) White Blood Count 16.8 x10^3/uL (4.0-11.0) Red Blood Count 3.59 x10^6/uL (3.50-5.40) Hemoglobin 10.4 g/dL (12.0-15.5) Hematocrit 31.7 % (36.0-47.0) Mean Corpuscular Volume 88 fL (79-100) Mean Corpuscular Hemoglobin 29 pg (25-35) Mean Corpuscular Hemoglobin Concent 33 g/dL (31-37) Red Cell Distribution Width 14.7 % (11.5-14.5) Platelet Count 318 x10^3/uL (140-400) Neutrophils (%) (Auto) 76 % (31-73) Lymphocytes (%) (Auto) 19 % (24-48) Monocytes (%) (Auto) 4 % (0-9) Eosinophils (%) (Auto) 0 % (0-3) Basophils (%) (Auto) 1 % (0-3) Neutrophils # (Auto) 12.8 x10^3uL (1.8-7.7) Lymphocytes # (Auto) 3.2 x10^3/uL (1.0-4.8) Monocytes # (Auto) 0.7 x10^3/uL (0.0-1.1) Eosinophils # (Auto) 0.0 x10^3/uL (0.0-0.7) Basophils # (Auto) 0.1 x10^3/uL (0.0-0.2) Sodium Level 151 mmol/L (136-145) Potassium Level 3.5 mmol/L (3.5-5.1) Chloride Level 116 mmol/L (98-107) Carbon Dioxide Level 23 mmol/L (21-32) Anion Gap 12 (6-14) Blood Urea Nitrogen 24 mg/dL (7-20) Creatinine 0.8 mg/dL (0.6-1.0) Estimated GFR (Cockcroft-Gault) 72.7 Glucose Level 53 mg/dL (70-99) Calcium Level 8.2 mg/dL (8.5-10.1) Phosphorus Level 3.4 mg/dL (2.6-4.7) Albumin 2.5 g/dL (3.4-5.0) Test 11/19/18 06:30 11/19/18 07:51 11/19/18 08:45 11/19/18 11:39 Glucose (Fingerstick) 94 mg/dL (70-99) 60 mg/dL (70-99) 117 mg/dL (70-99) 48 mg/dL (70-99) Test 11/19/18 12:08 11/19/18 12:33 11/19/18 17:02 11/19/18 21:02 Glucose (Fingerstick) 193 mg/dL (70-99) 150 mg/dL (70-99) 174 mg/dL (70-99) 124 mg/dL (70-99) Test 11/20/18 04:57 11/20/18 07:41 11/20/18 09:20 11/20/18 09:37 White Blood Count 6.8 x10^3/uL (4.0-11.0) Red Blood Count 3.74 x10^6/uL (3.50-5.40) Hemoglobin 10.7 g/dL (12.0-15.5) Hematocrit 33.0 % (36.0-47.0) Mean Corpuscular Volume 88 fL (79-100) Mean Corpuscular Hemoglobin 29 pg (25-35) Mean Corpuscular Hemoglobin Concent 33 g/dL (31-37) Red Cell Distribution Width 14.4 % (11.5-14.5) Platelet Count 223 x10^3/uL (140-400) Neutrophils (%) (Auto) 76 % (31-73) Lymphocytes (%) (Auto) 17 % (24-48) Monocytes (%) (Auto) 5 % (0-9) Eosinophils (%) (Auto) 1 % (0-3) Basophils (%) (Auto) 0 % (0-3) Neutrophils # (Auto) 5.1 x10^3uL (1.8-7.7) Lymphocytes # (Auto) 1.1 x10^3/uL (1.0-4.8) Monocytes # (Auto) 0.4 x10^3/uL (0.0-1.1) Eosinophils # (Auto) 0.1 x10^3/uL (0.0-0.7) Basophils # (Auto) 0.0 x10^3/uL (0.0-0.2) Glucose (Fingerstick) 443 mg/dL (70-99) 524 mg/dL (70-99) Sodium Level 139 mmol/L (136-145) Potassium Level 5.2 mmol/L (3.5-5.1) Chloride Level 103 mmol/L (98-107) Carbon Dioxide Level 16 mmol/L (21-32) Anion Gap 20 (6-14) Blood Urea Nitrogen 19 mg/dL (7-20) Creatinine 0.9 mg/dL (0.6-1.0) Estimated GFR (Cockcroft-Gault) 63.4 Glucose Level 577 mg/dL (70-99) Calcium Level 9.0 mg/dL (8.5-10.1) Phosphorus Level 3.0 mg/dL (2.6-4.7) Magnesium Level 1.9 mg/dL (1.8-2.4) Acetone Level Sm pos (NEG) Test 11/20/18 10:40 11/20/18 11:38 11/20/18 11:45 11/20/18 12:42 O2 Saturation 97 % (92-99) Arterial Blood pH 7.45 (7.35-7.45) Arterial Blood pCO2 at Patient Temp 21 mmHg (35-46) Arterial Blood pO2 at Patient Temp 96 mmHg (65-108) Arterial Blood HCO3 14 mmol/L (21-28) Arterial Blood Base Excess -8 mmol/L (-3-3) FiO2 28 Glucose (Fingerstick) 288 mg/dL (70-99) 176 mg/dL (70-99) Urine Collection Type Unknown Urine Color Yellow Urine Clarity Clear Urine pH 5.0 Urine Specific [place] 1.025 Urine Protein Negative mg/dL (NEG-TRACE) Urine Glucose (UA) >=1000 mg/dL (NEG) Urine Ketones (Stick) >=80 mg/dL (NEG) Urine Blood Negative (NEG) Urine Nitrite Negative (NEG) Urine Bilirubin Small (NEG) Urine Urobilinogen Dipstick 0.2 mg/dL (0.2 mg/dL) Urine Leukocyte Esterase Negative (NEG) Urine RBC 1-2 /HPF (0-2) Urine WBC 1-4 /HPF (0-4) Urine Squamous Epithelial Cells Few /LPF Urine Bacteria Few /HPF (0-FEW) Urine Mucus Mod /LPF Test 11/20/18 13:48 11/20/18 14:18 11/20/18 14:53 11/20/18 15:57 Glucose (Fingerstick) 136 mg/dL (70-99) 156 mg/dL (70-99) 159 mg/dL (70-99) Sodium Level 147 mmol/L (136-145) Potassium Level 3.5 mmol/L (3.5-5.1) Chloride Level 113 mmol/L (98-107) Carbon Dioxide Level 25 mmol/L (21-32) Anion Gap 9 (6-14) Blood Urea Nitrogen 16 mg/dL (7-20) Creatinine 0.8 mg/dL (0.6-1.0) Estimated GFR (Cockcroft-Gault) 72.7 Glucose Level 166 mg/dL (70-99) Calcium Level 8.2 mg/dL (8.5-10.1) Phosphorus Level 1.9 mg/dL (2.6-4.7) Magnesium Level 1.9 mg/dL (1.8-2.4) Laboratory Tests Test 11/19/18 21:02 11/20/18 04:57 11/20/18 07:41 11/20/18 09:20 Glucose (Fingerstick) 124 mg/dL (70-99) 443 mg/dL (70-99) White Blood Count 6.8 x10^3/uL (4.0-11.0) Red Blood Count 3.74 x10^6/uL (3.50-5.40) Hemoglobin 10.7 g/dL (12.0-15.5) Hematocrit 33.0 % (36.0-47.0) Mean Corpuscular Volume 88 fL (79-100) Mean Corpuscular Hemoglobin 29 pg (25-35) Mean Corpuscular Hemoglobin Concent 33 g/dL (31-37) Red Cell Distribution Width 14.4 % (11.5-14.5) Platelet Count 223 x10^3/uL (140-400) Neutrophils (%) (Auto) 76 % (31-73) Lymphocytes (%) (Auto) 17 % (24-48) Monocytes (%) (Auto) 5 % (0-9) Eosinophils (%) (Auto) 1 % (0-3) Basophils (%) (Auto) 0 % (0-3) Neutrophils # (Auto) 5.1 x10^3uL (1.8-7.7) Lymphocytes # (Auto) 1.1 x10^3/uL (1.0-4.8) Monocytes # (Auto) 0.4 x10^3/uL (0.0-1.1) Eosinophils # (Auto) 0.1 x10^3/uL (0.0-0.7) Basophils # (Auto) 0.0 x10^3/uL (0.0-0.2) Sodium Level 139 mmol/L (136-145) Potassium Level 5.2 mmol/L (3.5-5.1) Chloride Level 103 mmol/L (98-107) Carbon Dioxide Level 16 mmol/L (21-32) Anion Gap 20 (6-14) Blood Urea Nitrogen 19 mg/dL (7-20) Creatinine 0.9 mg/dL (0.6-1.0) Estimated GFR (Cockcroft-Gault) 63.4 Glucose Level 577 mg/dL (70-99) Calcium Level 9.0 mg/dL (8.5-10.1) Phosphorus Level 3.0 mg/dL (2.6-4.7) Magnesium Level 1.9 mg/dL (1.8-2.4) Acetone Level Sm pos (NEG) Test 11/20/18 09:37 11/20/18 10:40 11/20/18 11:38 11/20/18 11:45 Glucose (Fingerstick) 524 mg/dL (70-99) 288 mg/dL (70-99) O2 Saturation 97 % (92-99) Arterial Blood pH 7.45 (7.35-7.45) Arterial Blood pCO2 at Patient Temp 21 mmHg (35-46) Arterial Blood pO2 at Patient Temp 96 mmHg (65-108) Arterial Blood HCO3 14 mmol/L (21-28) Arterial Blood Base Excess -8 mmol/L (-3-3) FiO2 28 Urine Collection Type Unknown Urine Color Yellow Urine Clarity Clear Urine pH 5.0 Urine Specific [place] 1.025 Urine Protein Negative mg/dL (NEG-TRACE) Urine Glucose (UA) >=1000 mg/dL (NEG) Urine Ketones (Stick) >=80 mg/dL (NEG) Urine Blood Negative (NEG) Urine Nitrite Negative (NEG) Urine Bilirubin Small (NEG) Urine Urobilinogen Dipstick 0.2 mg/dL (0.2 mg/dL) Urine Leukocyte Esterase Negative (NEG) Urine RBC 1-2 /HPF (0-2) Urine WBC 1-4 /HPF (0-4) Urine Squamous Epithelial Cells Few /LPF Urine Bacteria Few /HPF (0-FEW) Urine Mucus Mod /LPF Test 11/20/18 12:42 11/20/18 13:48 11/20/18 14:18 11/20/18 14:53 Glucose (Fingerstick) 176 mg/dL (70-99) 136 mg/dL (70-99) 156 mg/dL (70-99) Sodium Level 147 mmol/L (136-145) Potassium Level 3.5 mmol/L (3.5-5.1) Chloride Level 113 mmol/L (98-107) Carbon Dioxide Level 25 mmol/L (21-32) Anion Gap 9 (6-14) Blood Urea Nitrogen 16 mg/dL (7-20) Creatinine 0.8 mg/dL (0.6-1.0) Estimated GFR (Cockcroft-Gault) 72.7 Glucose Level 166 mg/dL (70-99) Calcium Level 8.2 mg/dL (8.5-10.1) Phosphorus Level 1.9 mg/dL (2.6-4.7) Magnesium Level 1.9 mg/dL (1.8-2.4) Test 11/20/18 15:57 Glucose (Fingerstick) 159 mg/dL (70-99) Microbiology 11/18/18 Blood Culture - Preliminary, Resulted NO GROWTH AFTER 2 DAYS Medications Current Medications Sodium Chloride 1,000 ml @ 1,000 mls/hr Q1H IV Last administered on 11/18/18at 10:49; Start 11/18/18 at 10:28; Stop 11/18/18 at 11:27; Status DC Sodium Chloride 1,000 ml @ 1,000 mls/hr 1X ONCE IV Last administered on 11/18/18at 11:15; Start 11/18/18 at 10:30; Stop 11/18/18 at 13:34; Status DC Insulin Human Regular (HumuLIN R VIAL) 10 unit 1X ONCE IV Last administered on 11/18/18at 11:16; Start 11/18/18 at 10:30; Stop 11/18/18 at 10:35; Status DC Insulin Human Regular 150 ml @ 0 mls/hr 1X ONCE IV Last administered on 11/18/18at 11:24; Start 11/18/18 at 10:45; Stop 11/18/18 at 10:46; Status DC Sodium Chloride 1,000 ml @ 1,000 mls/hr 1X ONCE IV ; Start 11/18/18 at 11:30; Stop 11/18/18 at 12:29; Status Cancel Ceftriaxone Sodium (Rocephin) 1 gm 1X ONCE IVP Last administered on 11/18/18at 11:48; Start 11/18/18 at 11:30; Stop 11/18/18 at 11:33; Status DC Vancomycin HCl 250 ml @ 250 mls/hr 1X ONCE IV Last administered on 11/18/18at 11:53; Start 11/18/18 at 11:30; Stop 11/18/18 at 12:29; Status DC Sodium Chloride 1,000 ml @ 150 mls/hr Q6H40M IV ; Start 11/18/18 at 12:00; Stop 11/18/18 at 15:15; Status DC Divalproex Sodium (Depakote Er) 500 mg QHS PO Last administered on 11/19/18 21:05; Start 11/18/18 at 21:00 Trazodone HCl (Desyrel) 100 mg QHS PO Last administered on 11/19/18at 21:05; Start 11/18/18 at 21:00 Olanzapine (ZyPREXA) 20 mg QHS PO Last administered on 11/19/18at 21:05; Start 11/18/18 at 21:00 Non-Formulary Medication (Trazodone Hcl ) 1 tab QHS PO ; Start 11/18/18 at 21:00; Status UNV Olanzapine (ZyPREXA IM) 10 mg PRN BID PRN IM SCHIZOPHRENIA Last administered on 11/18/18at 13:40; Start 11/18/18 at 13:30 Sodium Chloride 2,000 ml @ 0 mls/hr 1X ONCE IV ; Start 11/18/18 at 13:45; Stop 11/18/18 at 13:45; Status DC Sodium Chloride 1,000 ml @ 0 mls/hr Q1H IV Last administered on 11/18/18at 15:00; Start 11/18/18 at 14:00; Stop 11/18/18 at 15:01; Status DC Dextrose/Sodium Chloride 1,000 ml @ 250 mls/hr 1X ONCE IV Last administered on 11/18/18at 14:08; Start 11/18/18 at 14:15; Stop 11/18/18 at 19:28; Status DC Fentanyl Citrate 30 ml @ 0 mls/hr CONT PRN IV SEE PROTOCOL; Start 11/18/18 at 14:15; Status UNV Chlorhexidine Gluconate (Peridex) 15 ml BID MM ; Start 11/18/18 at 21:00; Status UNV Midazolam HCl 100 ml @ 0 mls/hr CONT PRN IV SEE PROTOCOL; Start 11/18/18 at 14:15; Status UNV Fentanyl Citrate 30 ml @ 0 mls/hr CONT PRN IV SEE PROTOCOL; Start 11/18/18 at 14:30; Status UNV Midazolam HCl 100 ml @ 0 mls/hr CONT PRN IV SEE PROTOCOL; Start 11/18/18 at 14:30; Status UNV Potassium Chloride/Water 100 ml @ 100 mls/hr Q1H IV Last administered on 11/18/18at 18:33; Start 11/18/18 at 15:00; Stop 11/18/18 at 18:59; Status DC Potassium Phosphate 20 mmol/ Sodium Chloride 256.6667 ml @ 128.... Q2H IV Last administered on 11/18/18at 17:28; Start 11/18/18 at 15:00; Stop 11/18/18 at 18:59; Status DC Potassium Phosphate 13.6 mmol/Dextrose 104.5333 ml @ 52.267 m... Q2H IV ; Start 11/18/18 at 15:15; Stop 11/18/18 at 19:14; Status UNV Ziprasidone (Geodon Im) 20 mg 1X ONCE IM ; Start 11/18/18 at 16:15; Stop 11/18/18 at 16:16; Status DC Ceftriaxone Sodium (Rocephin) 1 gm Q24H IVP Last administered on 11/20/18at 15:09; Start 11/19/18 at 12:00 Dextrose/Sodium Chloride 1,000 ml @ 250 mls/hr 1X ONCE IV Last administered on 11/18/18at 17:54; Start 11/18/18 at 17:45; Stop 11/18/18 at 19:28; Status DC Insulin Glargine (Lantus) 30 units QHS SQ Last administered on 11/20/18 17:04; Start 11/18/18 at 21:00 Insulin Human Lispro (HumaLOG) 10 units TIDWMEALS SQ Last administered on 11/20/18 09:29; Start 11/19/18 at 08:00 Insulin Human Lispro (HumaLOG) 5 units Q6HRS SQ ; Start 11/19/18 at 00:00; Stop 11/19/18 at 16:31; Status DC Fentanyl Citrate (Fentanyl 2ml Vial) 25 mcg PRN Q3HRS PRN IV PAIN Last administered on 11/20/18 12:36; Start 11/18/18 at 19:30 Sodium Chloride 1,000 ml @ 125 mls/hr Q8H IV Last administered on 11/19/18 11:27; Start 11/18/18 at 19:30; Stop 11/19/18 at 13:59; Status DC Dextrose (Dextrose 50%-Water Syringe) 12.5 gm PRN Q15MIN PRN IV SEE COMMENTS Last administered on 11/19/18 11:49; Start 11/18/18 at 19:45 Amino Acids/ Glycerin/ Electrolytes 1,000 ml @ 75 mls/hr [id number] IV Last administered on 11/19/18at 23:50; Start 11/19/18 at 10:30 Insulin Human Lispro (HumaLOG) 6 units 1X ONCE SQ Last administered on 11/20/18 09:53; Start 11/20/18 at 10:00; Stop 11/20/18 at 10:01; Status DC Insulin Human Regular 150 unit/ Sodium Chloride 151.5 ml @ 0 mls/hr CONT PRN IV SEE I/O RECORD Last administered on 11/20/18at 10:39; Start 11/20/18 at 10:30; Stop 11/20/18 at 16:56; Status DC Sodium Chloride 1,000 ml @ 1,000 mls/hr Q1H IV Last administered on 11/20/18at 10:36; Start 11/20/18 at 10:23; Stop 11/20/18 at 11:22; Status DC Sodium Chloride 1,000 ml @ 250 mls/hr Q4H IV Last administered on 11/20/18at 11:29; Start 11/20/18 at 10:26 Sodium Chloride 1,000 ml @ 250 mls/hr Q4H IV ; Start 11/20/18 at 10:26 Dextrose/Sodium Chloride 1,000 ml @ 250 mls/hr Q4H IV Last administered on 11/20/18at 13:33; Start 11/20/18 at 10:26 Insulin Human Regular 150 unit/ Sodium Chloride 151.5 ml @ 0 mls/hr CONT PRN PRN IV PER PROTOCOL; Start 11/20/18 at 10:30; Status UNV Potassium Chloride/Water 100 ml @ 100 mls/hr PRN Q1HR PRN IV SEE COMMENTS; Start 11/20/18 at 10:30 Potassium Chloride/Water 100 ml @ 100 mls/hr PRN Q1HR PRN IV SEE COMMENTS; Start 11/20/18 at 10:30 Lactobacillus Rhamnosus (Culturelle) 1 cap BID PO ; Start 11/20/18 at 21:00 Insulin Human Lispro (HumaLOG) 0-7 UNITS TIDWMEALS SQ ; Start 11/20/18 at 17:00 Dextrose (Dextrose 50%-Water Syringe) 12.5 gm PRN Q15MIN PRN IV SEE COMMENTS; Start 11/20/18 at 17:00 Active Scripts Active Reported Divalproex Sodium Er (Divalproex Sodium) 500 Mg Tab.er.24h 1 Tab PO QHS Trazodone Hcl 100 Mg Tablet 1 Tab PO QHS Trazodone Hcl 50 Mg Tablet 1 Tab PO QHS Olanzapine 20 Mg Tablet 1 Tab PO QHS Humalog (Insulin Lispro) 100 Unit/1 Ml Cartridge 10 Unit SQ TIDWMEALS Lantus (Insulin Glargine,Hum.rec.anlog) 100 Unit/1 Ml Vial 30 Unit SQ HS Vitals/I & O Vital Sign - Last 24 Hours 11/19/18 11/19/18 11/20/18 11/20/18 20:00 20:00 00:00 03:54 Temp 97.3 98.4 98.0 97.3 98.4 98.0 Pulse 80 88 110 Resp 18 18 18 B/P (MAP) 117/55 (75) 142/77 (98) 148/80 (102) Pulse Ox 97 96 100 O2 Delivery Nasal Cannula Nasal Cannula Nasal Cannula Nasal Cannula O2 Flow Rate 2.0 2.0 2.0 2.0 11/20/18 11/20/18 11/20/18 11/20/18 07:52 08:00 10:30 11:00 Temp 98.1 97.6 98.1 97.6 Pulse 102 108 107 Resp 16 20 20 B/P (MAP) 122/59 (80) 95/78 (84) 112/80 (91) Pulse Ox 99 98 99 O2 Delivery Nasal Cannula Room Air O2 Flow Rate 2.0 2.0 2.0 11/20/18 11/20/18 11/20/18 11/20/18 12:36 12:50 13:00 13:06 Pulse 91 Resp 22 28 12 B/P (MAP) 105/52 (69) Pulse Ox 99 94 96 O2 Delivery Nasal Cannula Nasal Cannula Nasal Cannula O2 Flow Rate 2.0 2.0 2.0 2.0 11/20/18 11/20/18 11/20/18 11/20/18 14:00 15:00 16:00 16:00 Temp 97.6 97.6 Pulse 78 84 78 Resp 12 12 12 B/P (MAP) 101/60 (74) 94/57 (69) 106/53 (70) Pulse Ox 98 94 95 O2 Delivery Nasal Cannula O2 Flow Rate 2.0 2.0 2.0 2.0 Intake and Output 11/19/18 11/19/18 11/20/18 15:00 23:00 07:00 Intake Total 0 ml Output Total 310 ml 650 ml 2400 ml Balance -310 ml -650 ml -2400 ml Nutrition Consultation Dietary Evaluation: Recommendations by RD: Increase Calorie Intake, Protein supplementation, PPN/TPN Comments: Pt choking at breakfast REc BLEMISH REMOVER eval REC diet per BLEMISH REMOVER w/ ADA, Cardiac diet restrictions per pmhx REC supplements as tolerated continue with ppn at this time Expected Outcomes/Goals: to meet > 75% est nutr needs Malnutrition Findings: Food and Nutrition Intake (Sev: <50% est energy req 5days Body Fat Depletion (Non Severe: Mild Depletion Weight Status: Underweight RADHA MCADAMS MD November 20, 2018 17:20
[2018-11-20] MEDS ORDERED: MAGNESIUM SULFATE 4GM 100 ML IV PRN (17:27)
[2018-11-20] MEDS ORDERED: POTASSIUM CHLORIDE 20 MEQ TABLET.ER. PO ONE (17:30)
[2018-11-20] MEDS ORDERED: POTASSIUM CHLORIDE 20 MEQ TABLET.ER. PO SCH ×2 (17:30)
[2018-11-20] MEDS ORDERED: SODIUM PHOSPHATE 40 MMOL in IV DEXTROSE 5% 250 ML IV ONE (17:30)
[2018-11-20] MEDS ORDERED: POTASSIUM PHOSPHATE DIBASIC 15 MMOL in IV NORMAL SALINE 250ML 250 ML IV ONE (18:00)
[2018-11-20] MEDS: OLANZapine 5 MG TABLET PO SCH (21:00)
[2018-11-20] MEDS: LACTOBACILLUS RHAMNOSUS GG 1 CAPSULE. PO SCH (21:00)
[2018-11-20] MEDS: traZODone 100 MG TABLET. PO SCH (21:00)
[2018-11-20] MEDS ORDERED: POTASSIUM & SODIUM PHOSPHATES PACKET. PO PRN (21:00)
[2018-11-20] MEDS: DIVALPROEX EXTENDED RELEASE 500 MG TAB.ER.24H. PO SCH (21:00)
[2018-11-21] VITALS (17 sets, daily range): BP systolic 87–148; BP diastolic 45–83
[2018-11-21] MEDS: fentaNYL PF VIAL 100 MCG/2 ML VIAL IV PRN ×2 (00:11→10:37)
[2018-11-21] MEDS: DEXTROSE 50% 25 GM / 50ML DISP.SYRIN. IV PRN (00:24)
[2018-11-21] MEDS: AMINO AC 3%/ELECTROLYTE/GLYCER 1,000 ML IV SCH (02:34)
[2018-11-21 05:18] LABS: CALCIUM 8.1 mg/dL (8.5-10.1); CREATININE 0.6 mg/dL (0.6-1.0); GFR 101.3; MAGNESIUM 1.9 mg/dL (1.8-2.4); PHOSPHORUS 2.8 mg/dL (2.6-4.7); POTASSIUM 3.6 mmol/L (3.5-5.1)
[2018-11-21] MEDS: LACTOBACILLUS RHAMNOSUS GG 1 CAPSULE. PO SCH ×2 (08:08→21:34)
[2018-11-21] MEDS: INSULIN LISPRO 300 UNITS/3 ML INSULN.PEN. SQ SCH ×8 (08:11→17:00)
--- NOTE | 2018-11-21 10:20 | PDOC ---
Renal-Progress Notes Subjective Notes Notes NONE History of Present Illness Hx of present illness BETTER Vitals Vitals Vital Signs Date Time Temp Pulse Resp B/P (MAP) Pulse Ox O2 Delivery O2 Flow Rate FiO2 11/21/18 10:00 86 14 113/74 (87) 97 Room Air 11/21/18 08:00 98.4 98.4 11/21/18 07:00 2.0 Weight Weight [ ] I.O. Intake and Output Intake and Output 11/21/18 06:59 Intake Total 3206 ml Output Total 1800 ml Balance 1406 ml Intake Oral 0 ml IV Total 3206 ml Output Urine Total 1800 ml Labs Labs Laboratory Tests Test 11/20/18 10:40 11/20/18 11:38 11/20/18 11:45 11/20/18 12:42 O2 Saturation 97 % (92-99) Arterial Blood pH 7.45 (7.35-7.45) Arterial Blood pCO2 at Patient Temp 21 mmHg (35-46) Arterial Blood pO2 at Patient Temp 96 mmHg (65-108) Arterial Blood HCO3 14 mmol/L (21-28) Arterial Blood Base Excess -8 mmol/L (-3-3) FiO2 28 Glucose (Fingerstick) 288 mg/dL (70-99) 176 mg/dL (70-99) Urine Collection Type Unknown Urine Color Yellow Urine Clarity Clear Urine pH 5.0 Urine Specific [place] 1.025 Urine Protein Negative mg/dL (NEG-TRACE) Urine Glucose (UA) >=1000 mg/dL (NEG) Urine Ketones (Stick) >=80 mg/dL (NEG) Urine Blood Negative (NEG) Urine Nitrite Negative (NEG) Urine Bilirubin Small (NEG) Urine Urobilinogen Dipstick 0.2 mg/dL (0.2 mg/dL) Urine Leukocyte Esterase Negative (NEG) Urine RBC 1-2 /HPF (0-2) Urine WBC 1-4 /HPF (0-4) Urine Squamous Epithelial Cells Few /LPF Urine Bacteria Few /HPF (0-FEW) Urine Mucus Mod /LPF Test 11/20/18 13:48 11/20/18 14:18 11/20/18 14:53 11/20/18 15:57 Glucose (Fingerstick) 136 mg/dL (70-99) 156 mg/dL (70-99) 159 mg/dL (70-99) Sodium Level 147 mmol/L (136-145) Potassium Level 3.5 mmol/L (3.5-5.1) Chloride Level 113 mmol/L (98-107) Carbon Dioxide Level 25 mmol/L (21-32) Anion Gap 9 (6-14) Blood Urea Nitrogen 16 mg/dL (7-20) Creatinine 0.8 mg/dL (0.6-1.0) Estimated GFR (Cockcroft-Gault) 72.7 Glucose Level 166 mg/dL (70-99) Calcium Level 8.2 mg/dL (8.5-10.1) Phosphorus Level 1.9 mg/dL (2.6-4.7) Magnesium Level 1.9 mg/dL (1.8-2.4) Test 11/20/18 17:04 11/20/18 19:01 11/20/18 21:15 11/21/18 00:21 Glucose (Fingerstick) 147 mg/dL (70-99) 105 mg/dL (70-99) 88 mg/dL (70-99) 52 mg/dL (70-99) Test 11/21/18 00:51 11/21/18 03:07 11/21/18 04:00 11/21/18 04:58 Glucose (Fingerstick) 127 mg/dL (70-99) 142 mg/dL (70-99) 156 mg/dL (70-99) Sodium Level 148 mmol/L (136-145) Potassium Level 3.6 mmol/L (3.5-5.1) Chloride Level 113 mmol/L (98-107) Carbon Dioxide Level 28 mmol/L (21-32) Anion Gap 7 (6-14) Blood Urea Nitrogen 13 mg/dL (7-20) Creatinine 0.6 mg/dL (0.6-1.0) Estimated GFR (Cockcroft-Gault) 101.3 Glucose Level 156 mg/dL (70-99) Calcium Level 8.1 mg/dL (8.5-10.1) Phosphorus Level 2.8 mg/dL (2.6-4.7) Magnesium Level 1.9 mg/dL (1.8-2.4) Test 11/21/18 07:32 Glucose (Fingerstick) 251 mg/dL (70-99) Micro Micro Microbiology 11/18/18 Blood Culture - Preliminary, Resulted NO GROWTH AFTER 2 DAYS Review of Systems Constitutional: yes: alert, oriented Ears/Nose/Throat: Yes: no symptom reported Eyes: Yes: no symptom reported Pulmonary: Yes no symptom reported Cardiovascular: Yes no symptom reported Gastrointestional: Yes: no symptom reported Genitourinary: Yes: no symptom reported Musculoskeletal: Yes: no symptom reported Skin: Yes no symptom reported Psychiatric/Neurological: Yes: no symptom reported Endocrine: Yes: no symptom reported Hematologic/Lymphatic: Yes: no symptom reported Physical Exam General Appearance: no apparent distress Skin: warm Respiratory: bilateral CTA Heart: S1S2 Abdomen: soft, bowel sounds present Genitourinary: bladder flat Extremities: pulses present Neurology: alert Assessment Assessment IMP RESOLVING DKA, ACIDOSIS AND ELECTROLYTE IMBALANCE PLAN WILL SIGN OFF TAYLOR NAIDU MD November 21, 2018 10:20
--- NOTE | 2018-11-21 11:23 | RAD ---
Portable abdomen, 11/21/2018: HISTORY: Check Dobbhoff tube placement A supine view of the upper abdomen demonstrates a Dobbhoff tube extending into the proximal body of the stomach. The abdominal gas pattern is unremarkable. The lung bases are clear. IMPRESSION: The Dobbhoff tube extends into the proximal body of the stomach. Electronically signed by: Domo Kelly MD (11/21/2018 11:20 AM) [facility]
[2018-11-21] MEDS: cefTRIAXone IV Push 1 GM VIAL. IVP SCH (11:37)
--- NOTE | 2018-11-21 13:22 | PDOC ---
PROGRESS NOTES Chief Complaint Chief Complaint DKA Severe metabolic encephalopathy Bipolar Severe sepsis Hypernatremia Acute renal failure Tachycardia Small focus of hypoattenuation in the medial right frontal lobe likely chronic encephalomalacia or chronic ischemia. This may have been present on the prior study. Stable ventriculomegaly. No evidence of acute intracranial hemorrhage. History of Present Illness History of Present Illness Patient seen and examined in the ICU She appears quite ill Her son is present I discussed the case with him and the nurse Patient has some old laly on her left leg the need to be removed She had put back on insulin drip last night because of recurrent DKA Vitals Vitals Vital Signs Date Time Temp Pulse Resp B/P (MAP) Pulse Ox O2 Delivery O2 Flow Rate FiO2 11/21/18 12:00 98.5 88 21 107/64 (78) 97 Room Air 98.5 11/21/18 07:00 2.0 Physical Exam General: Cooperative, mild distress Heart: Regular rate, Normal S1, Other (TACHY) Lungs: Clear Abdomen: Normal bowel sounds, Soft, No tenderness Extremities: No clubbing, No cyanosis, No edema Skin: No breakdown, No significant lesion Labs LABS Laboratory Tests Test 11/20/18 13:48 11/20/18 14:18 11/20/18 14:53 11/20/18 15:57 Glucose (Fingerstick) 136 mg/dL (70-99) 156 mg/dL (70-99) 159 mg/dL (70-99) Sodium Level 147 mmol/L (136-145) Potassium Level 3.5 mmol/L (3.5-5.1) Chloride Level 113 mmol/L (98-107) Carbon Dioxide Level 25 mmol/L (21-32) Anion Gap 9 (6-14) Blood Urea Nitrogen 16 mg/dL (7-20) Creatinine 0.8 mg/dL (0.6-1.0) Estimated GFR (Cockcroft-Gault) 72.7 Glucose Level 166 mg/dL (70-99) Calcium Level 8.2 mg/dL (8.5-10.1) Phosphorus Level 1.9 mg/dL (2.6-4.7) Magnesium Level 1.9 mg/dL (1.8-2.4) Test 11/20/18 17:04 11/20/18 19:01 11/20/18 21:15 11/21/18 00:21 Glucose (Fingerstick) 147 mg/dL (70-99) 105 mg/dL (70-99) 88 mg/dL (70-99) 52 mg/dL (70-99) Test 11/21/18 00:51 11/21/18 03:07 11/21/18 04:00 11/21/18 04:58 Glucose (Fingerstick) 127 mg/dL (70-99) 142 mg/dL (70-99) 156 mg/dL (70-99) Sodium Level 148 mmol/L (136-145) Potassium Level 3.6 mmol/L (3.5-5.1) Chloride Level 113 mmol/L (98-107) Carbon Dioxide Level 28 mmol/L (21-32) Anion Gap 7 (6-14) Blood Urea Nitrogen 13 mg/dL (7-20) Creatinine 0.6 mg/dL (0.6-1.0) Estimated GFR (Cockcroft-Gault) 101.3 Glucose Level 156 mg/dL (70-99) Calcium Level 8.1 mg/dL (8.5-10.1) Phosphorus Level 2.8 mg/dL (2.6-4.7) Magnesium Level 1.9 mg/dL (1.8-2.4) Test 11/21/18 07:32 11/21/18 11:33 Glucose (Fingerstick) 251 mg/dL (70-99) 70 mg/dL (70-99) Review of Systems Review of Systems Unable to obtain she is too confused Assessment and Plan Assessmemt and Plan Problems Medical Problems: (1) Acute renal failure Status: Acute (2) Altered mental status Status: Acute (3) DKA (diabetic ketoacidoses) Status: Acute (4) Hypermagnesemia Status: Acute (5) Hypernatremia Status: Acute (6) Hyperphosphatemia Status: Acute (7) Severe sepsis Status: Acute (8) Tachycardia Status: Acute DKA Severe metabolic encephalopathy Bipolar Severe sepsis Hypernatremia Acute renal failure Tachycardia Small focus of hypoattenuation in the medial right frontal lobe likely chronic encephalomalacia or chronic ischemia. This may have been present on the prior study. Stable ventriculomegaly. No evidence of acute intracranial hemorrhage. Plan DKA protocol ICU monitoring Full code DVT prophylaxis Home meds Await further subspecialist input Prognosis guarded Total time 31 minutes Comment Review of Relevant I have reviewed the following items [email or web address] (where applicable) has been applied. Labs Laboratory Tests Test 11/19/18 17:02 11/19/18 21:02 11/20/18 04:57 11/20/18 07:41 Glucose (Fingerstick) 174 mg/dL (70-99) 124 mg/dL (70-99) 443 mg/dL (70-99) White Blood Count 6.8 x10^3/uL (4.0-11.0) Red Blood Count 3.74 x10^6/uL (3.50-5.40) Hemoglobin 10.7 g/dL (12.0-15.5) Hematocrit 33.0 % (36.0-47.0) Mean Corpuscular Volume 88 fL (79-100) Mean Corpuscular Hemoglobin 29 pg (25-35) Mean Corpuscular Hemoglobin Concent 33 g/dL (31-37) Red Cell Distribution Width 14.4 % (11.5-14.5) Platelet Count 223 x10^3/uL (140-400) Neutrophils (%) (Auto) 76 % (31-73) Lymphocytes (%) (Auto) 17 % (24-48) Monocytes (%) (Auto) 5 % (0-9) Eosinophils (%) (Auto) 1 % (0-3) Basophils (%) (Auto) 0 % (0-3) Neutrophils # (Auto) 5.1 x10^3uL (1.8-7.7) Lymphocytes # (Auto) 1.1 x10^3/uL (1.0-4.8) Monocytes # (Auto) 0.4 x10^3/uL (0.0-1.1) Eosinophils # (Auto) 0.1 x10^3/uL (0.0-0.7) Basophils # (Auto) 0.0 x10^3/uL (0.0-0.2) Test 11/20/18 09:20 11/20/18 09:37 11/20/18 10:40 11/20/18 11:38 Sodium Level 139 mmol/L (136-145) Potassium Level 5.2 mmol/L (3.5-5.1) Chloride Level 103 mmol/L (98-107) Carbon Dioxide Level 16 mmol/L (21-32) Anion Gap 20 (6-14) Blood Urea Nitrogen 19 mg/dL (7-20) Creatinine 0.9 mg/dL (0.6-1.0) Estimated GFR (Cockcroft-Gault) 63.4 Glucose Level 577 mg/dL (70-99) Calcium Level 9.0 mg/dL (8.5-10.1) Phosphorus Level 3.0 mg/dL (2.6-4.7) Magnesium Level 1.9 mg/dL (1.8-2.4) Acetone Level Sm pos (NEG) Glucose (Fingerstick) 524 mg/dL (70-99) 288 mg/dL (70-99) O2 Saturation 97 % (92-99) Arterial Blood pH 7.45 (7.35-7.45) Arterial Blood pCO2 at Patient Temp 21 mmHg (35-46) Arterial Blood pO2 at Patient Temp 96 mmHg (65-108) Arterial Blood HCO3 14 mmol/L (21-28) Arterial Blood Base Excess -8 mmol/L (-3-3) FiO2 28 Test 11/20/18 11:45 11/20/18 12:42 11/20/18 13:48 11/20/18 14:18 Urine Collection Type Unknown Urine Color Yellow Urine Clarity Clear Urine pH 5.0 Urine Specific [place] 1.025 Urine Protein Negative mg/dL (NEG-TRACE) Urine Glucose (UA) >=1000 mg/dL (NEG) Urine Ketones (Stick) >=80 mg/dL (NEG) Urine Blood Negative (NEG) Urine Nitrite Negative (NEG) Urine Bilirubin Small (NEG) Urine Urobilinogen Dipstick 0.2 mg/dL (0.2 mg/dL) Urine Leukocyte Esterase Negative (NEG) Urine RBC 1-2 /HPF (0-2) Urine WBC 1-4 /HPF (0-4) Urine Squamous Epithelial Cells Few /LPF Urine Bacteria Few /HPF (0-FEW) Urine Mucus Mod /LPF Glucose (Fingerstick) 176 mg/dL (70-99) 136 mg/dL (70-99) Sodium Level 147 mmol/L (136-145) Potassium Level 3.5 mmol/L (3.5-5.1) Chloride Level 113 mmol/L (98-107) Carbon Dioxide Level 25 mmol/L (21-32) Anion Gap 9 (6-14) Blood Urea Nitrogen 16 mg/dL (7-20) Creatinine 0.8 mg/dL (0.6-1.0) Estimated GFR (Cockcroft-Gault) 72.7 Glucose Level 166 mg/dL (70-99) Calcium Level 8.2 mg/dL (8.5-10.1) Phosphorus Level 1.9 mg/dL (2.6-4.7) Magnesium Level 1.9 mg/dL (1.8-2.4) Test 11/20/18 14:53 11/20/18 15:57 11/20/18 17:04 11/20/18 19:01 Glucose (Fingerstick) 156 mg/dL (70-99) 159 mg/dL (70-99) 147 mg/dL (70-99) 105 mg/dL (70-99) Test 11/20/18 21:15 11/21/18 00:21 11/21/18 00:51 11/21/18 03:07 Glucose (Fingerstick) 88 mg/dL (70-99) 52 mg/dL (70-99) 127 mg/dL (70-99) 142 mg/dL (70-99) Test 11/21/18 04:00 11/21/18 04:58 11/21/18 07:32 11/21/18 11:33 Sodium Level 148 mmol/L (136-145) Potassium Level 3.6 mmol/L (3.5-5.1) Chloride Level 113 mmol/L (98-107) Carbon Dioxide Level 28 mmol/L (21-32) Anion Gap 7 (6-14) Blood Urea Nitrogen 13 mg/dL (7-20) Creatinine 0.6 mg/dL (0.6-1.0) Estimated GFR (Cockcroft-Gault) 101.3 Glucose Level 156 mg/dL (70-99) Calcium Level 8.1 mg/dL (8.5-10.1) Phosphorus Level 2.8 mg/dL (2.6-4.7) Magnesium Level 1.9 mg/dL (1.8-2.4) Glucose (Fingerstick) 156 mg/dL (70-99) 251 mg/dL (70-99) 70 mg/dL (70-99) Laboratory Tests Test 11/20/18 13:48 11/20/18 14:18 11/20/18 14:53 11/20/18 15:57 Glucose (Fingerstick) 136 mg/dL (70-99) 156 mg/dL (70-99) 159 mg/dL (70-99) Sodium Level 147 mmol/L (136-145) Potassium Level 3.5 mmol/L (3.5-5.1) Chloride Level 113 mmol/L (98-107) Carbon Dioxide Level 25 mmol/L (21-32) Anion Gap 9 (6-14) Blood Urea Nitrogen 16 mg/dL (7-20) Creatinine 0.8 mg/dL (0.6-1.0) Estimated GFR (Cockcroft-Gault) 72.7 Glucose Level 166 mg/dL (70-99) Calcium Level 8.2 mg/dL (8.5-10.1) Phosphorus Level 1.9 mg/dL (2.6-4.7) Magnesium Level 1.9 mg/dL (1.8-2.4) Test 11/20/18 17:04 11/20/18 19:01 11/20/18 21:15 11/21/18 00:21 Glucose (Fingerstick) 147 mg/dL (70-99) 105 mg/dL (70-99) 88 mg/dL (70-99) 52 mg/dL (70-99) Test 11/21/18 00:51 11/21/18 03:07 11/21/18 04:00 11/21/18 04:58 Glucose (Fingerstick) 127 mg/dL (70-99) 142 mg/dL (70-99) 156 mg/dL (70-99) Sodium Level 148 mmol/L (136-145) Potassium Level 3.6 mmol/L (3.5-5.1) Chloride Level 113 mmol/L (98-107) Carbon Dioxide Level 28 mmol/L (21-32) Anion Gap 7 (6-14) Blood Urea Nitrogen 13 mg/dL (7-20) Creatinine 0.6 mg/dL (0.6-1.0) Estimated GFR (Cockcroft-Gault) 101.3 Glucose Level 156 mg/dL (70-99) Calcium Level 8.1 mg/dL (8.5-10.1) Phosphorus Level 2.8 mg/dL (2.6-4.7) Magnesium Level 1.9 mg/dL (1.8-2.4) Test 11/21/18 07:32 11/21/18 11:33 Glucose (Fingerstick) 251 mg/dL (70-99) 70 mg/dL (70-99) Microbiology 11/18/18 Blood Culture - Preliminary, Resulted NO GROWTH AFTER 2 DAYS Medications Current Medications Sodium Chloride 1,000 ml @ 1,000 mls/hr Q1H IV Last administered on 11/18/18at 10:49; Start 11/18/18 at 10:28; Stop 11/18/18 at 11:27; Status DC Sodium Chloride 1,000 ml @ 1,000 mls/hr 1X ONCE IV Last administered on 9at 11:15; Start 11/18/18 at 10:30; Stop 11/18/18 at 13:34; Status DC Insulin Human Regular (HumuLIN R VIAL) 10 unit 1X ONCE IV Last administered on 11/18/18at 11:16; Start 11/18/18 at 10:30; Stop 11/18/18 at 10:35; Status DC Insulin Human Regular 150 ml @ 0 mls/hr 1X ONCE IV Last administered on 11/18/18at 11:24; Start 11/18/18 at 10:45; Stop 11/18/18 at 10:46; Status DC Sodium Chloride 1,000 ml @ 1,000 mls/hr 1X ONCE IV ; Start 11/18/18 at 11:30; Stop 11/18/18 at 12:29; Status Cancel Ceftriaxone Sodium (Rocephin) 1 gm 1X ONCE IVP Last administered on 11/18/18at 11:48; Start 11/18/18 at 11:30; Stop 11/18/18 at 11:33; Status DC Vancomycin HCl 250 ml @ 250 mls/hr 1X ONCE IV Last administered on 11/18/18at 11:53; Start 11/18/18 at 11:30; Stop 11/18/18 at 12:29; Status DC Sodium Chloride 1,000 ml @ 150 mls/hr Q6H40M IV ; Start 11/18/18 at 12:00; Stop 11/18/18 at 15:15; Status DC Divalproex Sodium (Depakote Er) 500 mg QHS PO Last administered on 11/19/18at 21:05; Start 11/18/18 at 21:00 Trazodone HCl (Desyrel) 100 mg QHS PO Last administered on 11/19/18at 21:05; Start 11/18/18 at 21:00 Olanzapine (ZyPREXA) 20 mg QHS PO Last administered on 11/19/18at 21:05; Start 11/18/18 at 21:00 Non-Formulary Medication (Trazodone Hcl ) 1 tab QHS PO ; Start 11/18/18 at 21:00; Status UNV Olanzapine (ZyPREXA IM) 10 mg PRN BID PRN IM SCHIZOPHRENIA Last administered on 11/18/18at 13:40; Start 11/18/18 at 13:30 Sodium Chloride 2,000 ml @ 0 mls/hr 1X ONCE IV ; Start 11/18/18 at 13:45; Stop 11/18/18 at 13:45; Status DC Sodium Chloride 1,000 ml @ 0 mls/hr Q1H IV Last administered on 11/18/18at 15:00; Start 11/18/18 at 14:00; Stop 11/18/18 at 15:01; Status DC Dextrose/Sodium Chloride 1,000 ml @ 250 mls/hr 1X ONCE IV Last administered on 11/18/18at 14:08; Start 11/18/18 at 14:15; Stop 11/18/18 at 19:28; Status DC Fentanyl Citrate 30 ml @ 0 mls/hr CONT PRN IV SEE PROTOCOL; Start 11/18/18 at 14:15; Status UNV Chlorhexidine Gluconate (Peridex) 15 ml BID MM ; Start 11/18/18 at 21:00; Status UNV Midazolam HCl 100 ml @ 0 mls/hr CONT PRN IV SEE PROTOCOL; Start 11/18/18 at 14:15; Status UNV Fentanyl Citrate 30 ml @ 0 mls/hr CONT PRN IV SEE PROTOCOL; Start 11/18/18 at 14:30; Status UNV Midazolam HCl 100 ml @ 0 mls/hr CONT PRN IV SEE PROTOCOL; Start 11/18/18 at 14:30; Status UNV Potassium Chloride/Water 100 ml @ 100 mls/hr Q1H IV Last administered on 11/18/18at 18:33; Start 11/18/18 at 15:00; Stop 11/18/18 at 18:59; Status DC Potassium Phosphate 20 mmol/ Sodium Chloride 256.6667 ml @ 128.... Q2H IV Last administered on 11/18/18 17:28; Start 11/18/18 at 15:00; Stop 11/18/18 at 18:59; Status DC Potassium Phosphate 13.6 mmol/Dextrose 104.5333 ml @ 52.267 m... Q2H IV ; Start 11/18/18 at 15:15; Stop 11/18/18 at 19:14; Status UNV Ziprasidone (Geodon Im) 20 mg 1X ONCE IM ; Start 11/18/18 at 16:15; Stop 11/18/18 at 16:16; Status DC Ceftriaxone Sodium (Rocephin) 1 gm Q24H IVP Last administered on 11/21/18at 11:37; Start 11/19/18 at 12:00 Dextrose/Sodium Chloride 1,000 ml @ 250 mls/hr 1X ONCE IV Last administered on 11/18/18at 17:54; Start 11/18/18 at 17:45; Stop 11/18/18 at 19:28; Status DC Insulin Glargine (Lantus) 30 units QHS SQ Last administered on 11/20/18 17:04; Start 11/18/18 at 21:00 Insulin Human Lispro (HumaLOG) 10 units TIDWMEALS SQ Last administered on 11/21/18 08:12; Start 11/19/18 at 08:00 Insulin Human Lispro (HumaLOG) 5 units Q6HRS SQ ; Start 11/19/18 at 00:00; Stop 11/19/18 at 16:31; Status DC Fentanyl Citrate (Fentanyl 2ml Vial) 25 mcg PRN Q3HRS PRN IV PAIN Last administered on 11/21/18 10:37; Start 11/18/18 at 19:30 Sodium Chloride 1,000 ml @ 125 mls/hr Q8H IV Last administered on 11/19/18 11:27; Start 11/18/18 at 19:30; Stop 11/19/18 at 13:59; Status DC Dextrose (Dextrose 50%-Water Syringe) 12.5 gm PRN Q15MIN PRN IV SEE COMMENTS Last administered on 11/19/18at 11:49; Start 11/18/18 at 19:45; Stop 11/20/18 at 18:40; Status DC Amino Acids/ Glycerin/ Electrolytes 1,000 ml @ 75 mls/hr [id number] IV Last administered on 11/21/18at 02:34; Start 11/19/18 at 10:30; Stop 11/21/18 at 13:15; Status DC Insulin Human Lispro (HumaLOG) 6 units 1X ONCE SQ Last administered on 11/20/18at 09:53; Start 11/20/18 at 10:00; Stop 11/20/18 at 10:01; Status DC Insulin Human Regular 150 unit/ Sodium Chloride 151.5 ml @ 0 mls/hr CONT PRN IV SEE I/O RECORD Last administered on 11/20/18at 10:39; Start 11/20/18 at 10:30; Stop 11/20/18 at 16:56; Status DC Sodium Chloride 1,000 ml @ 1,000 mls/hr Q1H IV Last administered on 11/20/18at 10:36; Start 11/20/18 at 10:23; Stop 11/20/18 at 11:22; Status DC Sodium Chloride 1,000 ml @ 250 mls/hr Q4H IV Last administered on 11/20/18at 11:29; Start 11/20/18 at 10:26; Stop 11/20/18 at 18:40; Status DC Sodium Chloride 1,000 ml @ 250 mls/hr Q4H IV ; Start 11/20/18 at 10:26; Stop 11/20/18 at 18:40; Status DC Dextrose/Sodium Chloride 1,000 ml @ 250 mls/hr Q4H IV Last administered on 11/20/18at 13:33; Start 11/20/18 at 10:26; Stop 11/20/18 at 18:40; Status DC Insulin Human Regular 150 unit/ Sodium Chloride 151.5 ml @ 0 mls/hr CONT PRN PRN IV PER PROTOCOL; Start 11/20/18 at 10:30; Status UNV Potassium Chloride/Water 100 ml @ 100 mls/hr PRN Q1HR PRN IV SEE COMMENTS; S tart 11/20/18 at 10:30; Stop 11/20/18 at 18:40; Status DC Potassium Chloride/Water 100 ml @ 100 mls/hr PRN Q1HR PRN IV SEE COMMENTS; Start 11/20/18 at 10:30; Stop 11/20/18 at 18:40; Status DC Lactobacillus Rhamnosus (Culturelle) 1 cap BID PO ; Start 11/20/18 at 21:00 Insulin Human Lispro (HumaLOG) 0-7 UNITS TIDWMEALS SQ Last administered on 11/21/18at 08:11; Start 11/20/18 at 17:00 Dextrose (Dextrose 50%-Water Syringe) 12.5 gm PRN Q15MIN PRN IV SEE COMMENTS Last administered on 11/21/18at 00:24; Start 11/20/18 at 17:00 Potassium Chloride (Klor-Con) 40 meq 1X ONCE PO ; Start 11/20/18 at 17:30; Stop 11/20/18 at 17:31; Status UNV Potassium Chloride (Klor-Con) 40 meq Q2H PO ; Start 11/20/18 at 17:30; Stop 11/20/18 at 19:31; Status UNV Potassium Chloride (Klor-Con) 40 meq Q2H PO ; Start 11/20/18 at 17:30; Stop 11/20/18 at 21:31; Status UNV Magnesium Sulfate/ Dextrose 100 ml @ 50 mls/hr PRN DAILY PRN IV SEE COMMENTS; Start 11/20/18 at 17:27 Potassium Phos/ Sodium Phos (Phos-Nak) 1 pkt PRN BID PRN PO SEE COMMENTS; Start 11/20/18 at 21:00 Sodium Phosphate 40 mmol/Dextrose 263.3333 ml @ 62.5 mls/hr 1X ONCE IV ; Start 11/20/18 at 17:30; Stop 11/20/18 at 21:42; Status UNV Potassium Phosphate 15 mmol/ Sodium Chloride 255 ml @ 62.5 mls/hr 1X ONCE IV Last administered on 11/20/18at 18:03; Start 11/20/18 at 18:00; Stop 11/20/18 at 22:04; Status DC Active Scripts Active Reported Divalproex Sodium Er (Divalproex Sodium) 500 Mg Tab.er.24h 1 Tab PO QHS Trazodone Hcl 100 Mg Tablet 1 Tab PO QHS Trazodone Hcl 50 Mg Tablet 1 Tab PO QHS Olanzapine 20 Mg Tablet 1 Tab PO QHS Humalog (Insulin Lispro) 100 Unit/1 Ml Cartridge 10 Unit SQ TIDWMEALS Lantus (Insulin Glargine,Hum.rec.anlog) 100 Unit/1 Ml Vial 30 Unit SQ HS Vitals/I & O Vital Sign - Last 24 Hours 11/20/18 11/20/18 11/20/18 11/20/18 14:00 15:00 16:00 16:00 Temp 97.6 97.6 Pulse 78 84 78 Resp 12 12 12 B/P (MAP) 101/60 (74) 94/57 (69) 106/53 (70) Pulse Ox 98 94 95 O2 Delivery Nasal Cannula O2 Flow Rate 2.0 2.0 2.0 2.0 11/20/18 11/20/18 11/20/18 11/20/18 17:00 18:00 18:12 19:00 Temp 98.0 98.0 Pulse 85 82 76 Resp 16 16 18 22 B/P (MAP) 115/90 (98) 109/60 (76) 133/66 (88) Pulse Ox 97 98 97 96 O2 Delivery Nasal Cannula O2 Flow Rate 2.0 2.0 2.0 2.0 11/20/18 11/20/18 11/20/18 11/20/18 20:00 20:00 21:00 22:00 Pulse 73 74 68 Resp 15 9 27 B/P (MAP) 142/69 (93) 99/60 (73) 100/70 (80) Pulse Ox 97 95 99 O2 Delivery Nasal Cannula O2 Flow Rate 3.0 2.0 3.0 3.0 11/20/18 11/21/18 11/21/18 11/21/18 23:00 00:00 00:00 00:11 Temp 98.1 98.1 Pulse 69 70 Resp 22 16 20 B/P (MAP) 92/43 (59) 148/74 (98) Pulse Ox 97 99 98 O2 Delivery Nasal Cannula Nasal Cannula O2 Flow Rate 3.0 3.0 2.0 3.0 11/21/18 11/21/18 11/21/18 11/21/18 00:41 01:00 02:00 03:00 Pulse 70 74 76 Resp 19 23 14 B/P (MAP) 98/48 (65) 95/45 (62) 87/69 (75) Pulse Ox 100 98 98 O2 Flow Rate 2.0 2.0 2.0 2.0 11/21/18 11/21/18 11/21/18 11/21/18 04:00 04:00 05:05 06:00 Temp 98.5 98.5 Pulse 74 77 79 Resp 22 16 18 B/P (MAP) 121/53 (75) 93/58 (70) 110/63 (79) Pulse Ox 99 98 98 O2 Delivery Nasal Cannula O2 Flow Rate 2.0 2.0 2.0 2.0 11/21/18 11/21/18 11/21/18 11/21/18 07:00 08:00 08:00 09:00 Temp 98.4 98.4 Pulse 81 78 86 Resp 16 16 14 B/P (MAP) 105/83 (90) 105/73 (84) 100/53 (69) Pulse Ox 98 97 96 O2 Delivery Room Air Room Air Room Air O2 Flow Rate 2.0 11/21/18 11/21/18 11/21/18 11/21/18 10:00 10:37 11:00 11:24 Pulse 86 84 Resp 14 16 16 B/P (MAP) 113/74 (87) 104/66 (79) Pulse Ox 97 97 97 97 O2 Delivery Room Air Room Air Room Air Room Air 11/21/18 11/21/18 12:00 12:00 Temp 98.5 98.5 Pulse 88 Resp 21 B/P (MAP) 107/64 (78) Pulse Ox 97 O2 Delivery Room Air Room Air Intake and Output 11/20/18 11/20/18 11/21/18 15:00 23:00 07:00 Intake Total 0 ml 2071 ml 1135 ml Output Total 1100 ml 395 ml 355 ml Balance -1100 ml 1676 ml 780 ml Nutrition Consultation Dietary Evaluation: Recommendations by RD: Increase Calorie Intake Comments: REC TF via dobhoff per following: Glucerna 1.2@20 ml/hr, increase 10 ml q8 hrs as tolerated to goal rate 45 ml/hr w/100 ml water flushes q4 hrs Can stop PPN once TF started and pt is tolerating Expected Outcomes/Goals: to meet > 75% est nutr needs - not met, new goal established New goal 11/21: TF via dobhoff to meet >75% est needs Malnutrition Findings: Food and Nutrition Intake (Sev: <50% est energy req 5days Body Fat Depletion (Non Severe: Mild Depletion Weight Status: Underweight ALBERTO HERNANDEZ III DO November 21, 2018 13:22
--- NOTE | 2018-11-21 13:23 | NUR ---
SS following up with discharge planning. SS phoned and faxed clinical updates to [facility], ; fax [phone].
--- NOTE | 2018-11-21 14:59 | NUR ---
Patient transfer to room 434 from ICU room 114. VS wnl, pt on room air. Plan of care reviewed with receiving nurse Ruth Ryder. Tommy with patient and belongings at time of transfer.
[2018-11-21] MEDS: DIVALPROEX EXTENDED RELEASE 500 MG TAB.ER.24H. PO SCH ×2 (21:00→21:34)
[2018-11-21] MEDS: traZODone 100 MG TABLET. PO SCH (21:34)
[2018-11-21] MEDS: OLANZapine 5 MG TABLET PO SCH (21:34)
[2018-11-21] MEDS: INSULIN GLARGINE 300 UNITS/3 ML INSULN.PEN. SQ SCH (21:35)
[2018-11-22] MEDS: VALPROIC ACID (AS SODIUM SALT) 250 MG/5 ML SOLUTION. NG SCH ×3 (00:02→21:07)
[2018-11-22 03:00] VITALS: BP 121/80
[2018-11-22 04:44] LABS: BASO % 1 % (0-3); EOS # 0.1 x10^3/uL (0.0-0.7); EOS % 2 % (0-3); HEMATOCRIT 31.5 % (36.0-47.0); HEMOGLOBIN 10.5 g/dL (12.0-15.5); LYMPH % 28 % (24-48); MEAN CORPUSCULAR HEMOGLOBIN 29 pg (25-35); MEAN CORPUSCULAR HGB CONC 33 g/dL (31-37); MEAN CORPUSCULAR VOLUME 88 fL (79-100); MONO # 0.6 x10^3/uL (0.0-1.1); MONO % 8 % (0-9); NEUT # 4.5 x10^3uL (1.8-7.7); NEUT % 62 % (31-73); PLATELET COUNT 228 x10^3/uL (140-400); RED BLOOD COUNT 3.59 x10^6/uL (3.50-5.40); RED CELL DISTRIBUTION WIDTH 14.4 % (11.5-14.5); WHITE BLOOD COUNT 7.2 x10^3/uL (4.0-11.0)
[2018-11-22 04:50] LABS: CALCIUM 8.8 mg/dL (8.5-10.1); CREATININE 0.7 mg/dL (0.6-1.0); GFR 84.8
[2018-11-22] MEDS ORDERED: POTASSIUM CHLORIDE 20 MEQ/15 ML ORAL LIQUID. NG ONE (06:00)
[2018-11-22 07:00] VITALS: BP 99/76
[2018-11-22] MEDS: INSULIN LISPRO 300 UNITS/3 ML INSULN.PEN. SQ SCH ×6 (07:40→16:49)
--- NOTE | 2018-11-22 09:40 | PDOC ---
PROGRESS NOTES Chief Complaint Chief Complaint DKA Severe metabolic encephalopathy Bipolar Severe sepsis Hypernatremia Acute renal failure Tachycardia Small focus of hypoattenuation in the medial right frontal lobe likely chronic encephalomalacia or chronic ischemia. This may have been present on the prior study. Stable ventriculomegaly. No evidence of acute intracranial hemorrhage. History of Present Illness History of Present Illness Patient seen and examined Her son is present I discussed the case with him and the nurse back on insulin drip last 11/20 because of recurrent DKA 47 min pt exam, chart review, > 50% of time spent with exam, chart review, pt care coordination Vitals Vitals Vital Signs Date Time Temp Pulse Resp B/P (MAP) Pulse Ox O2 Delivery O2 Flow Rate FiO2 11/22/18 08:00 Room Air 11/22/18 07:00 97.8 93 20 99/76 (84) 97 97.8 11/21/18 07:00 2.0 Physical Exam General: Cooperative, mild distress Heart: Regular rate, Normal S1, Other (TACHY) Lungs: Clear Abdomen: Normal bowel sounds, Soft, No tenderness Extremities: No clubbing, No cyanosis, No edema Skin: No breakdown, No significant lesion Labs LABS SEX: F EXAM STATUS: ADM IN ORD. PHYSICIAN: RADHA MCADAMS MD REASON: LOC change PROCEDURE: CT HEAD WO CONTRAST CT HEAD WO CONTRAST Indication: Loss of consciousness. Exposure: One or more of the following individualized dose reduction techniques were utilized for this examination: 1. Automated exposure control 2. Adjustment of the mA and/or kV according to patient size 3. Use of iterative reconstruction technique. Technique: Standard imaging without intravenous contrast. There is moderate motion degradation. No evidence of acute intracranial hemorrhage, mass effect, midline shift or abnormal extra-axial fluid collection. There is some low density within the right frontal lobe adjacent to the midline likely encephalomalacia. There is enlargement of the lateral ventricles, appears similar to the prior study of December 03, 2014 as does the third ventricle enlargement. Fourth ventricle is not significantly enlarged. The orbits appear symmetric. No large scalp hematoma is seen. The visualized sinuses appear grossly clear. No evidence of acute skull abnormality. IMPRESSION: 1. Moderate motion degradation. 2. Small focus of hypoattenuation in the medial right frontal lobe likely chronic encephalomalacia or chronic ischemia. This may have been present on the prior study. 3. Stable ventriculomegaly. 4. No evidence of acute intracranial hemorrhage. Electronically signed by: Franco Martinez MD (11/20/2018 10:36 AM) [id number] Portable abdomen, 11/21/2018: HISTORY: Check Dobbhoff tube placement A supine view of the upper abdomen demonstrates a Dobbhoff tube extending into the proximal body of the stomach. The abdominal gas pattern is unremarkable. The lung bases are clear. IMPRESSION: The Dobbhoff tube extends into the proximal body of the stomach. Electronically signed by: Domo Kelly MD (11/21/2018 11:20 AM) [facility] Laboratory Tests Test 11/21/18 11:33 11/21/18 13:21 11/21/18 17:13 11/21/18 20:42 Glucose (Fingerstick) 70 mg/dL (70-99) 171 mg/dL (70-99) 76 mg/dL (70-99) 285 mg/dL (70-99) Test 11/22/18 03:30 11/22/18 04:22 11/22/18 07:38 11/22/18 09:14 White Blood Count 7.2 x10^3/uL (4.0-11.0) Red Blood Count 3.59 x10^6/uL (3.50-5.40) Hemoglobin 10.5 g/dL (12.0-15.5) Hematocrit 31.5 % (36.0-47.0) Mean Corpuscular Volume 88 fL (79-100) Mean Corpuscular Hemoglobin 29 pg (25-35) Mean Corpuscular Hemoglobin Concent 33 g/dL (31-37) Red Cell Distribution Width 14.4 % (11.5-14.5) Platelet Count 228 x10^3/uL (140-400) Neutrophils (%) (Auto) 62 % (31-73) Lymphocytes (%) (Auto) 28 % (24-48) Monocytes (%) (Auto) 8 % (0-9) Eosinophils (%) (Auto) 2 % (0-3) Basophils (%) (Auto) 1 % (0-3) Neutrophils # (Auto) 4.5 x10^3uL (1.8-7.7) Lymphocytes # (Auto) 2.0 x10^3/uL (1.0-4.8) Monocytes # (Auto) 0.6 x10^3/uL (0.0-1.1) Eosinophils # (Auto) 0.1 x10^3/uL (0.0-0.7) Basophils # (Auto) 0.0 x10^3/uL (0.0-0.2) Sodium Level 147 mmol/L (136-145) Potassium Level 3.0 mmol/L (3.5-5.1) Chloride Level 108 mmol/L (98-107) Carbon Dioxide Level 30 mmol/L (21-32) Anion Gap 9 (6-14) Blood Urea Nitrogen 10 mg/dL (7-20) Creatinine 0.7 mg/dL (0.6-1.0) Estimated GFR (Cockcroft-Gault) 84.8 Glucose Level 135 mg/dL (70-99) Calcium Level 8.8 mg/dL (8.5-10.1) Glucose (Fingerstick) 86 mg/dL (70-99) 63 mg/dL (70-99) 79 mg/dL (70-99) Assessment and Plan Assessmemt and Plan Problems Medical Problems: (1) Acute renal failure Status: Acute (2) Altered mental status Status: Acute (3) DKA (diabetic ketoacidoses) Status: Acute (4) Hypermagnesemia Status: Acute (5) Hypernatremia Status: Acute (6) Hyperphosphatemia Status: Acute (7) Severe sepsis Status: Acute (8) Tachycardia Status: Acute Comment Review of Relevant I have reviewed the following items [email or web address] (where applicable) has been applied. Labs Laboratory Tests Test 11/20/18 10:40 11/20/18 11:38 11/20/18 11:45 11/20/18 12:42 O2 Saturation 97 % (92-99) Arterial Blood pH 7.45 (7.35-7.45) Arterial Blood pCO2 at Patient Temp 21 mmHg (35-46) Arterial Blood pO2 at Patient Temp 96 mmHg (65-108) Arterial Blood HCO3 14 mmol/L (21-28) Arterial Blood Base Excess -8 mmol/L (-3-3) FiO2 28 Glucose (Fingerstick) 288 mg/dL (70-99) 176 mg/dL (70-99) Urine Collection Type Unknown Urine Color Yellow Urine Clarity Clear Urine pH 5.0 Urine Specific [place] 1.025 Urine Protein Negative mg/dL (NEG-TRACE) Urine Glucose (UA) >=1000 mg/dL (NEG) Urine Ketones (Stick) >=80 mg/dL (NEG) Urine Blood Negative (NEG) Urine Nitrite Negative (NEG) Urine Bilirubin Small (NEG) Urine Urobilinogen Dipstick 0.2 mg/dL (0.2 mg/dL) Urine Leukocyte Esterase Negative (NEG) Urine RBC 1-2 /HPF (0-2) Urine WBC 1-4 /HPF (0-4) Urine Squamous Epithelial Cells Few /LPF Urine Bacteria Few /HPF (0-FEW) Urine Mucus Mod /LPF Test 11/20/18 13:48 11/20/18 14:18 11/20/18 14:53 11/20/18 15:57 Glucose (Fingerstick) 136 mg/dL (70-99) 156 mg/dL (70-99) 159 mg/dL (70-99) Sodium Level 147 mmol/L (136-145) Potassium Level 3.5 mmol/L (3.5-5.1) Chloride Level 113 mmol/L (98-107) Carbon Dioxide Level 25 mmol/L (21-32) Anion Gap 9 (6-14) Blood Urea Nitrogen 16 mg/dL (7-20) Creatinine 0.8 mg/dL (0.6-1.0) Estimated GFR (Cockcroft-Gault) 72.7 Glucose Level 166 mg/dL (70-99) Calcium Level 8.2 mg/dL (8.5-10.1) Phosphorus Level 1.9 mg/dL (2.6-4.7) Magnesium Level 1.9 mg/dL (1.8-2.4) Test 11/20/18 17:04 11/20/18 19:01 11/20/18 21:15 11/21/18 00:21 Glucose (Fingerstick) 147 mg/dL (70-99) 105 mg/dL (70-99) 88 mg/dL (70-99) 52 mg/dL (70-99) Test 11/21/18 00:51 11/21/18 03:07 11/21/18 04:00 11/21/18 04:58 Glucose (Fingerstick) 127 mg/dL (70-99) 142 mg/dL (70-99) 156 mg/dL (70-99) Sodium Level 148 mmol/L (136-145) Potassium Level 3.6 mmol/L (3.5-5.1) Chloride Level 113 mmol/L (98-107) Carbon Dioxide Level 28 mmol/L (21-32) Anion Gap 7 (6-14) Blood Urea Nitrogen 13 mg/dL (7-20) Creatinine 0.6 mg/dL (0.6-1.0) Estimated GFR (Cockcroft-Gault) 101.3 Glucose Level 156 mg/dL (70-99) Calcium Level 8.1 mg/dL (8.5-10.1) Phosphorus Level 2.8 mg/dL (2.6-4.7) Magnesium Level 1.9 mg/dL (1.8-2.4) Test 11/21/18 07:32 11/21/18 11:33 11/21/18 13:21 11/21/18 17:13 Glucose (Fingerstick) 251 mg/dL (70-99) 70 mg/dL (70-99) 171 mg/dL (70-99) 76 mg/dL (70-99) Test 11/21/18 20:42 11/22/18 03:30 11/22/18 04:22 11/22/18 07:38 Glucose (Fingerstick) 285 mg/dL (70-99) 86 mg/dL (70-99) 63 mg/dL (70-99) White Blood Count 7.2 x10^3/uL (4.0-11.0) Red Blood Count 3.59 x10^6/uL (3.50-5.40) Hemoglobin 10.5 g/dL (12.0-15.5) Hematocrit 31.5 % (36.0-47.0) Mean Corpuscular Volume 88 fL (79-100) Mean Corpuscular Hemoglobin 29 pg (25-35) Mean Corpuscular Hemoglobin Concent 33 g/dL (31-37) Red Cell Distribution Width 14.4 % (11.5-14.5) Platelet Count 228 x10^3/uL (140-400) Neutrophils (%) (Auto) 62 % (31-73) Lymphocytes (%) (Auto) 28 % (24-48) Monocytes (%) (Auto) 8 % (0-9) Eosinophils (%) (Auto) 2 % (0-3) Basophils (%) (Auto) 1 % (0-3) Neutrophils # (Auto) 4.5 x10^3uL (1.8-7.7) Lymphocytes # (Auto) 2.0 x10^3/uL (1.0-4.8) Monocytes # (Auto) 0.6 x10^3/uL (0.0-1.1) Eosinophils # (Auto) 0.1 x10^3/uL (0.0-0.7) Basophils # (Auto) 0.0 x10^3/uL (0.0-0.2) Sodium Level 147 mmol/L (136-145) Potassium Level 3.0 mmol/L (3.5-5.1) Chloride Level 108 mmol/L (98-107) Carbon Dioxide Level 30 mmol/L (21-32) Anion Gap 9 (6-14) Blood Urea Nitrogen 10 mg/dL (7-20) Creatinine 0.7 mg/dL (0.6-1.0) Estimated GFR (Cockcroft-Gault) 84.8 Glucose Level 135 mg/dL (70-99) Calcium Level 8.8 mg/dL (8.5-10.1) Test 11/22/18 09:14 Glucose (Fingerstick) 79 mg/dL (70-99) Laboratory Tests Test 11/21/18 11:33 11/21/18 13:21 11/21/18 17:13 11/21/18 20:42 Glucose (Fingerstick) 70 mg/dL (70-99) 171 mg/dL (70-99) 76 mg/dL (70-99) 285 mg/dL (70-99) Test 11/22/18 03:30 11/22/18 04:22 11/22/18 07:38 11/22/18 09:14 White Blood Count 7.2 x10^3/uL (4.0-11.0) Red Blood Count 3.59 x10^6/uL (3.50-5.40) Hemoglobin 10.5 g/dL (12.0-15.5) Hematocrit 31.5 % (36.0-47.0) Mean Corpuscular Volume 88 fL (79-100) Mean Corpuscular Hemoglobin 29 pg (25-35) Mean Corpuscular Hemoglobin Concent 33 g/dL (31-37) Red Cell Distribution Width 14.4 % (11.5-14.5) Platelet Count 228 x10^3/uL (140-400) Neutrophils (%) (Auto) 62 % (31-73) Lymphocytes (%) (Auto) 28 % (24-48) Monocytes (%) (Auto) 8 % (0-9) Eosinophils (%) (Auto) 2 % (0-3) Basophils (%) (Auto) 1 % (0-3) Neutrophils # (Auto) 4.5 x10^3uL (1.8-7.7) Lymphocytes # (Auto) 2.0 x10^3/uL (1.0-4.8) Monocytes # (Auto) 0.6 x10^3/uL (0.0-1.1) Eosinophils # (Auto) 0.1 x10^3/uL (0.0-0.7) Basophils # (Auto) 0.0 x10^3/uL (0.0-0.2) Sodium Level 147 mmol/L (136-145) Potassium Level 3.0 mmol/L (3.5-5.1) Chloride Level 108 mmol/L (98-107) Carbon Dioxide Level 30 mmol/L (21-32) Anion Gap 9 (6-14) Blood Urea Nitrogen 10 mg/dL (7-20) Creatinine 0.7 mg/dL (0.6-1.0) Estimated GFR (Cockcroft-Gault) 84.8 Glucose Level 135 mg/dL (70-99) Calcium Level 8.8 mg/dL (8.5-10.1) Glucose (Fingerstick) 86 mg/dL (70-99) 63 mg/dL (70-99) 79 mg/dL (70-99) Microbiology 11/18/18 Blood Culture - Preliminary, Resulted NO GROWTH AFTER 3 DAYS Medications Current Medications Sodium Chloride 1,000 ml @ 1,000 mls/hr Q1H IV Last administered on 11/18/18at 10:49; Start 11/18/18 at 10:28; Stop 11/18/18 at 11:27; Status DC Sodium Chloride 1,000 ml @ 1,000 mls/hr 1X ONCE IV Last administered on 11/18/18at 11:15; Start 11/18/18 at 10:30; Stop 11/18/18 at 13:34; Status DC Insulin Human Regular (HumuLIN R VIAL) 10 unit 1X ONCE IV Last administered on 11/18/18at 11:16; Start 11/18/18 at 10:30; Stop 11/18/18 at 10:35; Status DC Insulin Human Regular 150 ml @ 0 mls/hr 1X ONCE IV Last administered on 11/18/18at 11:24; Start 11/18/18 at 10:45; Stop 11/18/18 at 10:46; Status DC Sodium Chloride 1,000 ml @ 1,000 mls/hr 1X ONCE IV ; Start 11/18/18 at 11:30; Stop 11/18/18 at 12:29; Status Cancel Ceftriaxone Sodium (Rocephin) 1 gm 1X ONCE IVP Last administered on 11/18/18at 11:48; Start 11/18/18 at 11:30; Stop 11/18/18 at 11:33; Status DC Vancomycin HCl 250 ml @ 250 mls/hr 1X ONCE IV Last administered on 11/18/18at 11:53; Start 11/18/18 at 11:30; Stop 11/18/18 at 12:29; Status DC Sodium Chloride 1,000 ml @ 150 mls/hr Q6H40M IV ; Start 11/18/18 at 12:00; Stop 11/18/18 at 15:15; Status DC Divalproex Sodium (Depakote Er) 500 mg QHS PO Last administered on 11/19/18at 21:05; Start 11/18/18 at 21:00; Stop 11/21/18 at 23:25; Status DC Trazodone HCl (Desyrel) 100 mg QHS PO Last administered on 11/21/18 21:34; Start 11/18/18 at 21:00 Olanzapine (ZyPREXA) 20 mg QHS PO Last administered on 11/21/18 21:34; Start 11/18/18 at 21:00 Non-Formulary Medication (Trazodone Hcl ) 1 tab QHS PO ; Start 11/18/18 at 21:00; Status UNV Olanzapine (ZyPREXA IM) 10 mg PRN BID PRN IM SCHIZOPHRENIA Last administered on 11/18/18at 13:40; Start 11/18/18 at 13:30 Sodium Chloride 2,000 ml @ 0 mls/hr 1X ONCE IV ; Start 11/18/18 at 13:45; Stop 11/18/18 at 13:45; Status DC Sodium Chloride 1,000 ml @ 0 mls/hr Q1H IV Last administered on 11/18/18at 15:00; Start 11/18/18 at 14:00; Stop 11/18/18 at 15:01; Status DC Dextrose/Sodium Chloride 1,000 ml @ 250 mls/hr 1X ONCE IV Last administered on 11/18/18at 14:08; Start 11/18/18 at 14:15; Stop 11/18/18 at 19:28; Status DC Fentanyl Citrate 30 ml @ 0 mls/hr CONT PRN IV SEE PROTOCOL; Start 11/18/18 at 14:15; Status UNV Chlorhexidine Gluconate (Peridex) 15 ml BID MM ; Start 11/18/18 at 21:00; Status UNV Midazolam HCl 100 ml @ 0 mls/hr CONT PRN IV SEE PROTOCOL; Start 11/18/18 at 14:15; Status UNV Fentanyl Citrate 30 ml @ 0 mls/hr CONT PRN IV SEE PROTOCOL; Start 11/18/18 at 14:30; Status UNV Midazolam HCl 100 ml @ 0 mls/hr CONT PRN IV SEE PROTOCOL; Start 11/18/18 at 14:30; Status UNV Potassium Chloride/Water 100 ml @ 100 mls/hr Q1H IV Last administered on 11/18/18at 18:33; Start 11/18/18 at 15:00; Stop 11/18/18 at 18:59; Status DC Potassium Phosphate 20 mmol/ Sodium Chloride 256.6667 ml @ 128.... Q2H IV Last administered on 11/18/18at 17:28; Start 11/18/18 at 15:00; Stop 11/18/18 at 18:59; Status DC Potassium Phosphate 13.6 mmol/Dextrose 104.5333 ml @ 52.267 m... Q2H IV ; Start 11/18/18 at 15:15; Stop 11/18/18 at 19:14; Status UNV Ziprasidone (Geodon Im) 20 mg 1X ONCE IM ; Start 11/18/18 at 16:15; Stop 11/18/18 at 16:16; Status DC Ceftriaxone Sodium (Rocephin) 1 gm Q24H IVP Last administered on 11/21/18 11:37; Start 11/19/18 at 12:00 Dextrose/Sodium Chloride 1,000 ml @ 250 mls/hr 1X ONCE IV Last administered on 11/18/18 17:54; Start 11/18/18 at 17:45; Stop 11/18/18 at 19:28; Status DC Insulin Glargine (Lantus) 30 units QHS SQ Last administered on 11/21/18 21:35; Start 11/18/18 at 21:00 Insulin Human Lispro (HumaLOG) 10 units TIDWMEALS SQ Last administered on 11/21/18 13:26; Start 11/19/18 at 08:00 Insulin Human Lispro (HumaLOG) 5 units Q6HRS SQ ; Start 11/19/18 at 00:00; Stop 11/19/18 at 16:31; Status DC Fentanyl Citrate (Fentanyl 2ml Vial) 25 mcg PRN Q3HRS PRN IV PAIN Last administered on 11/21/18 10:37; Start 11/18/18 at 19:30 Sodium Chloride 1,000 ml @ 125 mls/hr Q8H IV Last administered on 11/19/18 11:27; Start 11/18/18 at 19:30; Stop 11/19/18 at 13:59; Status DC Dextrose (Dextrose 50%-Water Syringe) 12.5 gm PRN Q15MIN PRN IV SEE COMMENTS Last administered on 11/19/18 11:49; Start 11/18/18 at 19:45; Stop 11/20/18 at 18:40; Status DC Amino Acids/ Glycerin/ Electrolytes 1,000 ml @ 75 mls/hr [id number] IV Last admin istered on 11/21/18 02:34; Start 11/19/18 at 10:30; Stop 11/21/18 at 13:15; Status DC Insulin Human Lispro (HumaLOG) 6 units 1X ONCE SQ Last administered on 11/20/18 09:53; Start 11/20/18 at 10:00; Stop 11/20/18 at 10:01; Status DC Insulin Human Regular 150 unit/ Sodium Chloride 151.5 ml @ 0 mls/hr CONT PRN IV SEE I/O RECORD Last administered on 11/20/18at 10:39; Start 11/20/18 at 10:30; Stop 11/20/18 at 16:56; Status DC Sodium Chloride 1,000 ml @ 1,000 mls/hr Q1H IV Last administered on 11/20/18at 10:36; Start 11/20/18 at 10:23; Stop 11/20/18 at 11:22; Status DC Sodium Chloride 1,000 ml @ 250 mls/hr Q4H IV Last administered on 11/20/18at 11:29; Start 11/20/18 at 10:26; Stop 11/20/18 at 18:40; Status DC Sodium Chloride 1,000 ml @ 250 mls/hr Q4H IV ; Start 11/20/18 at 10:26; Stop 11/20/18 at 18:40; Status DC Dextrose/Sodium Chloride 1,000 ml @ 250 mls/hr Q4H IV Last administered on 11/20at 13:33; Start 11/20/18 at 10:26; Stop 11/20/18 at 18:40; Status DC Insulin Human Regular 150 unit/ Sodium Chloride 151.5 ml @ 0 mls/hr CONT PRN PRN IV PER PROTOCOL; Start 11/20/18 at 10:30; Status UNV Potassium Chloride/Water 100 ml @ 100 mls/hr PRN Q1HR PRN IV SEE COMMENTS; Start 11/20/18 at 10:30; Stop 11/20/18 at 18:40; Status DC Potassium Chloride/Water 100 ml @ 100 mls/hr PRN Q1HR PRN IV SEE COMMENTS; Start 11/20/18 at 10:30; Stop 11/20/18 at 18:40; Status DC Lactobacillus Rhamnosus (Culturelle) 1 cap BID PO Last administered on 11/21/18at 21:34; Start 11/20/18 at 21:00 Insulin Human Lispro (HumaLOG) 0-7 UNITS TIDWMEALS SQ Last administered on 11/21/18at 13:25; Start 11/20/18 at 17:00 Dextrose (Dextrose 50%-Water Syringe) 12.5 gm PRN Q15MIN PRN IV SEE COMMENTS Last administered on 11/21/18at 00:24; Start 11/20/18 at 17:00 Potassium Chloride (Klor-Con) 40 meq 1X ONCE PO ; Start 11/20/18 at 17:30; Stop 11/20/18 at 17:31; Status UNV Potassium Chloride (Klor-Con) 40 meq Q2H PO ; Start 11/20/18 at 17:30; Stop 11/20/18 at 19:31; Status UNV Potassium Chloride (Klor-Con) 40 meq Q2H PO ; Start 11/20/18 at 17:30; Stop 11/20/18 at 21:31; Status UNV Magnesium Sulfate/ Dextrose 100 ml @ 50 mls/hr PRN DAILY PRN IV SEE COMMENTS; Start 11/20/18 at 17:27 Potassium Phos/ Sodium Phos (Phos-Nak) 1 pkt PRN BID PRN PO SEE COMMENTS; Start 11/20/18 at 21:00 Sodium Phosphate 40 mmol/Dextrose 263.3333 ml @ 62.5 mls/hr 1X ONCE IV ; Start 11/20/18 at 17:30; Stop 11/20/18 at 21:42; Status UNV Potassium Phosphate 15 mmol/ Sodium Chloride 255 ml @ 62.5 mls/hr 1X ONCE IV Last administered on 11/20/18at 18:03; Start 11/20/18 at 18:00; Stop 11/20/18 at 22:04; Status DC Valproic Acid (Depakene) 250 mg BID NG Last administered on 11/22/18at 00:02; Start 11/22/18 at 00:00 Potassium Chloride (KCl Oral Soln) 40 meq 1X ONCE NG Last administered on 11/22/18at 05:50; Start 11/22/18 at 06:00; Stop 11/22/18 at 06:01; Status DC Active Scripts Active Reported Divalproex Sodium Er (Divalproex Sodium) 500 Mg Tab.er.24h 1 Tab PO QHS Trazodone Hcl 100 Mg Tablet 1 Tab PO QHS Trazodone Hcl 50 Mg Tablet 1 Tab PO QHS Olanzapine 20 Mg Tablet 1 Tab PO QHS Humalog (Insulin Lispro) 100 Unit/1 Ml Cartridge 10 Unit SQ TIDWMEALS Lantus (Insulin Glargine,Hum.rec.anlog) 100 Unit/1 Ml Vial 30 Unit SQ HS Vitals/I & O Vital Sign - Last 24 Hours 11/21/18 11/21/18 11/21/18 11/21/18 10:00 10:37 11:00 11:24 Pulse 86 84 Resp 14 16 16 B/P (MAP) 113/74 (87) 104/66 (79) Pulse Ox 97 97 97 97 O2 Delivery Room Air Room Air Room Air Room Air 11/21/18 11/21/18 11/21/18 11/21/18 12:00 12:00 15:00 19:00 Temp 98.5 97.9 98.1 98.5 97.9 98.1 Pulse 88 84 93 Resp 21 17 14 B/P (MAP) 107/64 (78) 118/59 (78) 115/49 (71) Pulse Ox 97 97 94 O2 Delivery Room Air Room Air Room Air Room Air 11/21/18 11/21/18 11/21/18 11/22/18 20:00 21:00 23:00 03:00 Temp 98.2 98.2 98.3 98.2 98.2 98.3 Pulse 94 94 102 Resp 16 16 18 B/P (MAP) 113/68 (83) 113/68 (83) 121/80 (94) Pulse Ox 95 95 95 O2 Delivery Room Air Room Air Room Air Room Air 11/22/18 11/22/18 07:00 08:00 Temp 97.8 97.8 Pulse 93 Resp 20 B/P (MAP) 99/76 (84) Pulse Ox 97 O2 Delivery Room Air Room Air Intake and Output 11/21/18 11/21/18 11/22/18 15:00 23:00 07:00 Intake Total 702.62 ml 200 ml 300 ml Output Total 260 ml Balance 442.62 ml 200 ml 300 ml Nutrition Consultation Dietary Evaluation: Recommendations by RD: Increase Calorie Intake Comments: REC TF via dobhoff per following: Glucerna 1.2@20 ml/hr, increase 10 ml q8 hrs as tolerated to goal rate 45 ml/hr w/100 ml water flushes q4 hrs Can stop PPN once TF started and pt is tolerating Expected Outcomes/Goals: to meet > 75% est nutr needs - not met, new goal established New goal 11/21: TF via dobhoff to meet >75% est needs Malnutrition Findings: Food and Nutrition Intake (Sev: <50% est energy req 5days Body Fat Depletion (Non Severe: Mild Depletion Weight Status: Underweight RADHA MCADAMS MD November 22, 2018 09:40
[2018-11-22] MEDS: LACTOBACILLUS RHAMNOSUS GG 1 CAPSULE. PO SCH ×2 (10:17→21:07)
[2018-11-22 11:00] VITALS: BP 92/51
[2018-11-22] MEDS: cefTRIAXone IV Push 1 GM VIAL. IVP SCH (11:43)
--- NOTE | 2018-11-22 12:52 | NUR ---
SW following for discharge planning. Discussed with RN, pt not ready for discharge. SW awaiting PT/OT recommendations. Pt is from [facility]. SW will continue to follow.
[2018-11-22] MEDS ORDERED: SODIUM PHOSPHATE 15 MMOL in IV DEXTROSE 5% 250 ML IV PRN (14:15)
[2018-11-22] MEDS ORDERED: SODIUM PHOSPHATE 15 MMOL in IV NORMAL SALINE 250ML 250 ML IV PRN (14:15)
[2018-11-22] MEDS ORDERED: POTASSIUM CHLORIDE 10MEQ 100 ML IV PRN (14:15)
[2018-11-22] MEDS ORDERED: MAGNESIUM SULFATE 2GM 50 ML IV PRN (14:15)
[2018-11-22 15:00] VITALS: BP 97/48
[2018-11-22] MEDS: POTASSIUM CHLORIDE 10MEQ 100 ML IV SCH ×4 (15:05→19:37)
[2018-11-22 19:15] VITALS: BP 134/62
[2018-11-22] MEDS: INSULIN GLARGINE 300 UNITS/3 ML INSULN.PEN. SQ SCH (21:00)
[2018-11-22] MEDS: DEXTROSE 50% 25 GM / 50ML DISP.SYRIN. IV PRN (21:06)
[2018-11-22] MEDS: traZODone 100 MG TABLET. PO SCH (21:07)
[2018-11-22] MEDS: OLANZapine 5 MG TABLET PO SCH (21:07)
--- NOTE | 2018-11-22 21:40 | NUR ---
Blood sugar per accucheck 49. 1/2 amp D50 given IV per protocol. Blood sugar at 2140 119 per accucheck. Lantus insulin held. Will notify Dr. Rendon.
[2018-11-22 23:21] VITALS: BP 102/55
--- NOTE | 2018-11-22 23:30 | NUR ---
Spoke with Dr. Castle. Moran to be held tonight.
[2018-11-23 03:11] VITALS: BP 124/50
[2018-11-23 07:00] VITALS: BP 144/74
--- NOTE | 2018-11-23 08:22 | NUR ---
Dean was held per provider last night, Blood sugar this am was 445, Dr. Rubio notified and ordered 14U of Humalog and repeat BS in 1hr and notify him of results.
[2018-11-23] MEDS: INSULIN LISPRO 300 UNITS/3 ML INSULN.PEN. SQ SCH ×6 (08:27→17:13)
[2018-11-23 08:34] LABS: MAGNESIUM 1.9 mg/dL (1.8-2.4); PHOSPHORUS 3.7 mg/dL (2.6-4.7)
[2018-11-23] MEDS: VALPROIC ACID (AS SODIUM SALT) 250 MG/5 ML SOLUTION. NG SCH ×2 (09:24→21:20)
[2018-11-23] MEDS: LACTOBACILLUS RHAMNOSUS GG 1 CAPSULE. PO SCH ×2 (09:24→21:20)
--- NOTE | 2018-11-23 09:41 | NUR ---
Rechecked BS in 1hr per orders, BS was 381, Dr. Rubio notified and ordered 5U of Humalog and recheck in 1hr and notify of results.
--- NOTE | 2018-11-23 09:53 | PDOC ---
PROGRESS NOTES Chief Complaint Chief Complaint DKA Severe metabolic encephalopathy Bipolar Severe sepsis Hypernatremia Acute renal failure Tachycardia Small focus of hypoattenuation in the medial right frontal lobe likely chronic encephalomalacia or chronic ischemia. This may have been present on the prior study. Stable ventriculomegaly. No evidence of acute intracranial hemorrhage. History of Present Illness History of Present Illness Patient seen and examined Her son is present I discussed the case with him and the nurse back on insulin drip last 11/20 because of recurrent DKA 11/23, HYPOGLYCEMIC LAST NIGHT, LANTUS HELD, NOW HYPERGLYCEMIC 36 min pt exam, chart review, > 50% of time spent with exam, chart review, pt care coordination Vitals Vitals Vital Signs Date Time Temp Pulse Resp B/P (MAP) Pulse Ox O2 Delivery O2 Flow Rate FiO2 11/23/18 07:00 98.0 16 16 144/74 (97) 97 Room Air 98.0 Physical Exam General: Cooperative, mild distress Heart: Regular rate, Normal S1, Other (TACHY) Lungs: Clear Abdomen: Normal bowel sounds, Soft, No tenderness Extremities: No clubbing, No cyanosis, No edema Skin: No breakdown, No significant lesion Labs LABS Laboratory Tests Test 11/22/18 12:08 11/22/18 14:04 11/22/18 16:46 11/22/18 21:02 Glucose (Fingerstick) 135 mg/dL (70-99) 168 mg/dL (70-99) 259 mg/dL (70-99) 49 mg/dL (70-99) Test 11/22/18 21:39 11/23/18 07:44 11/23/18 07:45 11/23/18 09:20 Glucose (Fingerstick) 119 mg/dL (70-99) 445 mg/dL (70-99) 381 mg/dL (70-99) Phosphorus Level 3.7 mg/dL (2.6-4.7) Magnesium Level 1.9 mg/dL (1.8-2.4) Assessment and Plan Assessmemt and Plan Problems Medical Problems: (1) Acute renal failure Status: Acute (2) Altered mental status Status: Acute (3) DKA (diabetic ketoacidoses) Status: Acute (4) Hypermagnesemia Status: Acute (5) Hypernatremia Status: Acute (6) Hyperphosphatemia Status: Acute (7) Severe sepsis Status: Acute (8) Tachycardia Status: Acute Comment Review of Relevant I have reviewed the following items [email or web address] (where applicable) has been applied. Labs Laboratory Tests Test 11/21/18 11:33 11/21/18 13:21 11/21/18 17:13 11/21/18 20:42 Glucose (Fingerstick) 70 mg/dL (70-99) 171 mg/dL (70-99) 76 mg/dL (70-99) 285 mg/dL (70-99) Test 11/22/18 03:30 11/22/18 04:22 11/22/18 07:38 11/22/18 09:14 White Blood Count 7.2 x10^3/uL (4.0-11.0) Red Blood Count 3.59 x10^6/uL (3.50-5.40) Hemoglobin 10.5 g/dL (12.0-15.5) Hematocrit 31.5 % (36.0-47.0) Mean Corpuscular Volume 88 fL (79-100) Mean Corpuscular Hemoglobin 29 pg (25-35) Mean Corpuscular Hemoglobin Concent 33 g/dL (31-37) Red Cell Distribution Width 14.4 % (11.5-14.5) Platelet Count 228 x10^3/uL (140-400) Neutrophils (%) (Auto) 62 % (31-73) Lymphocytes (%) (Auto) 28 % (24-48) Monocytes (%) (Auto) 8 % (0-9) Eosinophils (%) (Auto) 2 % (0-3) Basophils (%) (Auto) 1 % (0-3) Neutrophils # (Auto) 4.5 x10^3uL (1.8-7.7) Lymphocytes # (Auto) 2.0 x10^3/uL (1.0-4.8) Monocytes # (Auto) 0.6 x10^3/uL (0.0-1.1) Eosinophils # (Auto) 0.1 x10^3/uL (0.0-0.7) Basophils # (Auto) 0.0 x10^3/uL (0.0-0.2) Sodium Level 147 mmol/L (136-145) Potassium Level 3.0 mmol/L (3.5-5.1) Chloride Level 108 mmol/L (98-107) Carbon Dioxide Level 30 mmol/L (21-32) Anion Gap 9 (6-14) Blood Urea Nitrogen 10 mg/dL (7-20) Creatinine 0.7 mg/dL (0.6-1.0) Estimated GFR (Cockcroft-Gault) 84.8 Glucose Level 135 mg/dL (70-99) Calcium Level 8.8 mg/dL (8.5-10.1) Glucose (Fingerstick) 86 mg/dL (70-99) 63 mg/dL (70-99) 79 mg/dL (70-99) Test 11/22/18 12:08 11/22/18 14:04 11/22/18 16:46 11/22/18 21:02 Glucose (Fingerstick) 135 mg/dL (70-99) 168 mg/dL (70-99) 259 mg/dL (70-99) 49 mg/dL (70-99) Test 11/22/18 21:39 11/23/18 07:44 11/23/18 07:45 11/23/18 09:20 Glucose (Fingerstick) 119 mg/dL (70-99) 445 mg/dL (70-99) 381 mg/dL (70-99) Phosphorus Level 3.7 mg/dL (2.6-4.7) Magnesium Level 1.9 mg/dL (1.8-2.4) Laboratory Tests Test 11/22/18 12:08 11/22/18 14:04 11/22/18 16:46 11/22/18 21:02 Glucose (Fingerstick) 135 mg/dL (70-99) 168 mg/dL (70-99) 259 mg/dL (70-99) 49 mg/dL (70-99) Test 11/22/18 21:39 11/23/18 07:44 11/23/18 07:45 11/23/18 09:20 Glucose (Fingerstick) 119 mg/dL (70-99) 445 mg/dL (70-99) 381 mg/dL (70-99) Phosphorus Level 3.7 mg/dL (2.6-4.7) Magnesium Level 1.9 mg/dL (1.8-2.4) Microbiology 11/18/18 Blood Culture - Preliminary, Resulted NO GROWTH AFTER 4 DAYS Medications Current Medications Sodium Chloride 1,000 ml @ 1,000 mls/hr Q1H IV Last administered on 11/18/18at 10:49; Start 11/18/18 at 10:28; Stop 11/18/18 at 11:27; Status DC Sodium Chloride 1,000 ml @ 1,000 mls/hr 1X ONCE IV Last administered on 11/18/18at 11:15; Start 11/18/18 at 10:30; Stop 11/18/18 at 13:34; Status DC Insulin Human Regular (HumuLIN R VIAL) 10 unit 1X ONCE IV Last administered on 11/18/18 11:16; Start 11/18/18 at 10:30; Stop 11/18/18 at 10:35; Status DC Insulin Human Regular 150 ml @ 0 mls/hr 1X ONCE IV Last administered on 11/18/18at 11:24; Start 11/18/18 at 10:45; Stop 11/18/18 at 10:46; Status DC Sodium Chloride 1,000 ml @ 1,000 mls/hr 1X ONCE IV ; Start 11/18/18 at 11:30; Stop 11/18/18 at 12:29; Status Cancel Ceftriaxone Sodium (Rocephin) 1 gm 1X ONCE IVP Last administered on 11/18/18at 11:48; Start 11/18/18 at 11:30; Stop 11/18/18 at 11:33; Status DC Vancomycin HCl 250 ml @ 250 mls/hr 1X ONCE IV Last administered on 11/18/18at 11:53; Start 11/18/18 at 11:30; Stop 11/18/18 at 12:29; Status DC Sodium Chloride 1,000 ml @ 150 mls/hr Q6H40M IV ; Start 11/18/18 at 12:00; Stop 11/18/18 at 15:15; Status DC Divalproex Sodium (Depakote Er) 500 mg QHS PO Last administered on 11/19/18at 21:05; Start 11/18/18 at 21:00; Stop 11/21/18 at 23:25; Status DC Trazodone HCl (Desyrel) 100 mg QHS PO Last administered on 11/22/18at 21:07; Start 11/18/18 at 21:00 Olanzapine (ZyPREXA) 20 mg QHS PO Last administered on 11/22/18at 21:07; Start 11/18/18 at 21:00 Non-Formulary Medication (Trazodone Hcl ) 1 tab QHS PO ; Start 11/18/18 at 21:00; Status UNV Olanzapine (ZyPREXA IM) 10 mg PRN BID PRN IM SCHIZOPHRENIA Last administered on 11/18/18at 13:40; Start 11/18/18 at 13:30 Sodium Chloride 2,000 ml @ 0 mls/hr 1X ONCE IV ; Start 11/18/18 at 13:45; Stop 11/18/18 at 13:45; Status DC Sodium Chloride 1,000 ml @ 0 mls/hr Q1H IV Last administered on 11/18/18at 15:00; Start 11/18/18 at 14:00; Stop 11/18/18 at 15:01; Status DC Dextrose/Sodium Chloride 1,000 ml @ 250 mls/hr 1X ONCE IV Last administered on 11/18/18at 14:08; Start 11/18/18 at 14:15; Stop 11/18/18 at 19:28; Status DC Fentanyl Citrate 30 ml @ 0 mls/hr CONT PRN IV SEE PROTOCOL; Start 11/18/18 at 14:15; Status UNV Chlorhexidine Gluconate (Peridex) 15 ml BID MM ; Start 11/18/18 at 21:00; Status UNV Midazolam HCl 100 ml @ 0 mls/hr CONT PRN IV SEE PROTOCOL; Start 11/18/18 at 14:15; Status UNV Fentanyl Citrate 30 ml @ 0 mls/hr CONT PRN IV SEE PROTOCOL; Start 11/18/18 at 14:30; Status UNV Midazolam HCl 100 ml @ 0 mls/hr CONT PRN IV SEE PROTOCOL; Start 11/18/18 at 14:30; Status UNV Potassium Chloride/Water 100 ml @ 100 mls/hr Q1H IV Last administered on 11/18/18at 18:33; Start 11/18/18 at 15:00; Stop 11/18/18 at 18:59; Status DC Potassium Phosphate 20 mmol/ Sodium Chloride 256.6667 ml @ 128.... Q2H IV Last administered on 11/18/18at 17:28; Start 11/18/18 at 15:00; Stop 11/18/18 at 18:59; Status DC Potassium Phosphate 13.6 mmol/Dextrose 104.5333 ml @ 52.267 m... Q2H IV ; Start 11/18/18 at 15:15; Stop 11/18/18 at 19:14; Status UNV Ziprasidone (Geodon Im) 20 mg 1X ONCE IM ; Start 11/18/18 at 16:15; Stop 11/18/18 at 16:16; Status DC Ceftriaxone Sodium (Rocephin) 1 gm Q24H IVP Last administered on 11/22/18at 11:43; Start 11/19/18 at 12:00 Dextrose/Sodium Chloride 1,000 ml @ 250 mls/hr 1X ONCE IV Last administered on 11/18/18at 17:54; Start 11/18/18 at 17:45; Stop 11/18/18 at 19:28; Status DC Insulin Glargine (Lantus) 30 units QHS SQ Last administered on 11/21/18 21:35; Start 11/18/18 at 21:00 Insulin Human Lispro (HumaLOG) 10 units TIDWMEALS SQ Last administered on 11/23/18 08:27; Start 11/19/18 at 08:00 Insulin Human Lispro (HumaLOG) 5 units Q6HRS SQ ; Start 11/19/18 at 00:00; Stop 11/19/18 at 16:31; Status DC Fentanyl Citrate (Fentanyl 2ml Vial) 25 mcg PRN Q3HRS PRN IV PAIN Last administered on 11/21/18at 10:37; Start 11/18/18 at 19:30 Sodium Chloride 1,000 ml @ 125 mls/hr Q8H IV Last administered on 11/19/18at 11:27; Start 11/18/18 at 19:30; Stop 11/19/18 at 13:59; Status DC Dextrose (Dextrose 50%-Water Syringe) 12.5 gm PRN Q15MIN PRN IV SEE COMMENTS Last administered on 11/19/18at 11:49; Start 11/18/18 at 19:45; Stop 11/20/18 at 18:40; Status DC Amino Acids/ Glycerin/ Electrolytes 1,000 ml @ 75 mls/hr [id number] IV Last administered on 11/21/18at 02:34; Start 11/19/18 at 10:30; Stop 11/21/18 at 13:15; Status DC Insulin Human Lispro (HumaLOG) 6 units 1X ONCE SQ Last administered on 11/20/18at 09:53; Start 11/20/18 at 10:00; Stop 11/20/18 at 10:01; Status DC Insulin Human Regular 150 unit/ Sodium Chloride 151.5 ml @ 0 mls/hr CONT PRN IV SEE I/O RECORD Last administered on 11/20/18at 10:39; Start 11/20/18 at 10:30; Stop 11/20/18 at 16:56; Status DC Sodium Chloride 1,000 ml @ 1,000 mls/hr Q1H IV Last administered on 11/20/18at 10:36; Start 11/20/18 at 10:23; Stop 11/20/18 at 11:22; Status DC Sodium Chloride 1,000 ml @ 250 mls/hr Q4H IV Last administered on 11/20/18at 11:29; Start 11/20/18 at 10:26; Stop 11/20/18 at 18:40; Status DC Sodium Chloride 1,000 ml @ 250 mls/hr Q4H IV ; Start 11/20/18 at 10:26; Stop 11/20/18 at 18:40; Status DC Dextrose/Sodium Chloride 1,000 ml @ 250 mls/hr Q4H IV Last administered on 11/20/18at 13:33; Start 11/20/18 at 10:26; Stop 11/20/18 at 18:40; Status DC Insulin Human Regular 150 unit/ Sodium Chloride 151.5 ml @ 0 mls/hr CONT PRN PRN IV PER PROTOCOL; Start 11/20/18 at 10:30; Status UNV Potassium Chloride/Water 100 ml @ 100 mls/hr PRN Q1HR PRN IV SEE COMMENTS; Start 11/20/18 at 10:30; Stop 11/20/18 at 18:40; Status DC Potassium Chloride/Water 100 ml @ 100 mls/hr PRN Q1HR PRN IV SEE COMMENTS; Start 11/20/18 at 10:30; Stop 11/20/18 at 18:40; Status DC Lactobacillus Rhamnosus (Culturelle) 1 cap BID PO Last administered on 11/23/18at 09:24; Start 11/20/18 at 21:00 Insulin Human Lispro (HumaLOG) 0-7 UNITS TIDWMEALS SQ Last administered on 11/23/18at 09:39; Start 11/20/18 at 17:00 Dextrose (Dextrose 50%-Water Syringe) 12.5 gm PRN Q15MIN PRN IV SEE COMMENTS Last administered on 11/22/18at 21:06; Start 11/20/18 at 17:00 Potassium Chloride (Klor-Con) 40 meq 1X ONCE PO ; Start 11/20/18 at 17:30; Stop 11/20/18 at 17:31; Status UNV Potassium Chloride (Klor-Con) 40 meq Q2H PO ; Start 11/20/18 at 17:30; Stop 11/20/18 at 19:31; Status UNV Potassium Chloride (Klor-Con) 40 meq Q2H PO ; Start 11/20/18 at 17:30; Stop 11/20/18 at 21:31; Status UNV Magnesium Sulfate/ Dextrose 100 ml @ 50 mls/hr PRN DAILY PRN IV SEE COMMENTS; Start 11/20/18 at 17:27; Stop 11/22/18 at 14:19; Status DC Potassium Phos/ Sodium Phos (Phos-Nak) 1 pkt PRN BID PRN PO SEE COMMENTS; Start 11/20/18 at 21:00 Sodium Phosphate 40 mmol/Dextrose 263.3333 ml @ 62.5 mls/hr 1X ONCE IV ; Start 11/20/18 at 17:30; Stop 11/20/18 at 21:42; Status UNV Potassium Phosphate 15 mmol/ Sodium Chloride 255 ml @ 62.5 mls/hr 1X ONCE IV Last administered on 11/20/18at 18:03; Start 11/20/18 at 18:00; Stop 11/20/18 at 22:04; Status DC Valproic Acid (Depakene) 250 mg BID NG Last administered on 11/23/18at 09:24; Start 11/22/18 at 00:00 Potassium Chloride (KCl Oral Soln) 40 meq 1X ONCE NG Last administered on at 05:50; Start 11/22/18 at 06:00; Stop 11/22/18 at 06:01; Status DC Potassium Chloride/Water 100 ml @ 100 mls/hr Q1H IV Last administered on 11/22/18at 19:37; Start 11/22/18 at 15:00; Stop 11/22/18 at 18:59; Status DC Magnesium Sulfate 50 ml @ 25 mls/hr PRN DAILY PRN IV MAG < 1.7; Start 11/22/18 at 14:15; Stop 11/25/18 at 09:01 Sodium Phosphate 15 mmol/Dextrose 255 ml @ 125 mls/hr PRN 1X PRN IV SEE COMMENTS; Start 11/22/18 at 14:15 Sodium Phosphate 15 mmol/Sodium Chloride 255 ml @ 125 mls/hr PRN 1X PRN IV SEE COMMENTS; Start 11/22/18 at 14:15 Potassium Chloride/Water 100 ml @ 100 mls/hr PRN Q1HR PRN IV SEE COMMENTS; Start 11/22/18 at 14:15 Active Scripts Active Reported Divalproex Sodium Er (Divalproex Sodium) 500 Mg Tab.er.24h 1 Tab PO QHS Trazodone Hcl 100 Mg Tablet 1 Tab PO QHS Trazodone Hcl 50 Mg Tablet 1 Tab PO QHS Olanzapine 20 Mg Tablet 1 Tab PO QHS Humalog (Insulin Lispro) 100 Unit/1 Ml Cartridge 10 Unit SQ TIDWMEALS Lantus (Insulin Glargine,Hum.rec.anlog) 100 Unit/1 Ml Vial 30 Unit SQ HS Vitals/I & O Vital Sign - Last 24 Hours 11/22/18 11/22/18 11/22/18 11/22/18 11:00 15:00 19:15 19:40 Temp 97.9 97.6 98.8 97.9 97.6 98.8 Pulse 86 86 116 Resp 18 20 22 B/P (MAP) 92/51 (65) 97/48 (64) 134/62 (86) Pulse Ox 96 100 97 O2 Delivery Room Air Room Air Room Air Room Air 11/22/18 11/23/18 11/23/18 23:21 03:11 07:00 Temp 98.6 98.0 98.0 98.6 98.0 98.0 Pulse 92 89 16 Resp 20 20 16 B/P (MAP) 102/55 (71) 124/50 (74) 144/74 (97) Pulse Ox 94 94 97 O2 Delivery Room Air Room Air Room Air Intake and Output 11/22/18 11/22/18 11/23/18 15:00 23:00 07:00 Intake Total 200 ml 325 ml Output Total 950 ml Balance 200 ml 325 ml -950 ml Nutrition Consultation Dietary Evaluation: Recommendations by RD: Increase Calorie Intake Comments: REC TF via dobhoff per following: Glucerna 1.2@20 ml/hr, increase 10 ml q8 hrs as tolerated to goal rate 45 ml/hr w/100 ml water flushes q4 hrs Can stop PPN once TF started and pt is tolerating Expected Outcomes/Goals: to meet > 75% est nutr needs - not met, new goal established New goal 11/21: TF via dobhoff to meet >75% est needs Malnutrition Findings: Food and Nutrition Intake (Sev: <50% est energy req 5days Body Fat Depletion (Non Severe: Mild Depletion Weight Status: Underweight RADHA MCADAMS MD November 23, 2018 09:53
[2018-11-23 11:00] VITALS: BP 112/66
[2018-11-23] MEDS: cefTRIAXone IV Push 1 GM VIAL. IVP SCH (11:53)
--- NOTE | 2018-11-23 12:08 | NUR ---
BS rechecked and result was 168, Dr. Rubio notified and ordered only 3U and to nonadmin her 10U of scheduled Humalog.
--- NOTE | 2018-11-23 13:01 | NUR ---
SW following for discharge planning. Discussed with RN, pt getting a Dobbhoff and will begin tube feedings. HCR cannot do Dobbhoff. GARETH faxed pt face sheet to [facility] to determine if pt meets rev codes. GARETH will continue to follow.
[2018-11-23 15:00] VITALS: BP 114/50
[2018-11-23 19:00] VITALS: BP 121/50
[2018-11-23] MEDS: traZODone 100 MG TABLET. PO SCH (21:20)
[2018-11-23] MEDS: OLANZapine 5 MG TABLET PO SCH (21:20)
[2018-11-23] MEDS: INSULIN GLARGINE 300 UNITS/3 ML INSULN.PEN. SQ SCH (21:23)
[2018-11-23 23:00] VITALS: BP 99/61
[2018-11-24 03:00] VITALS: BP 168/77
[2018-11-24 07:00] VITALS: BP 105/71
[2018-11-24] MEDS: VALPROIC ACID (AS SODIUM SALT) 250 MG/5 ML SOLUTION. NG SCH ×2 (08:48→20:49)
[2018-11-24] MEDS: LACTOBACILLUS RHAMNOSUS GG 1 CAPSULE. PO SCH ×2 (08:48→20:49)
--- NOTE | 2018-11-24 08:50 | PDOC ---
PROGRESS NOTES Chief Complaint Chief Complaint DKA Severe metabolic encephalopathy Bipolar Severe sepsis Hypernatremia Acute renal failure Tachycardia Small focus of hypoattenuation in the medial right frontal lobe likely chronic encephalomalacia or chronic ischemia. This may have been present on the prior study. Stable ventriculomegaly. No evidence of acute intracranial hemorrhage. 11/24 SLEEPING most od day, awake at night d/w son in room History of Present Illness History of Present Illness Patient seen and examined Her son is present I discussed the case with him and the nurse back on insulin drip last 11/20 because of recurrent DKA 11/23, HYPOGLYCEMIC LAST NIGHT, LANTUS HELD, NOW HYPERGLYCEMIC 39 min pt exam, chart review, > 50% of time spent with exam, chart review, pt care coordination Vitals Vitals Vital Signs Date Time Temp Pulse Resp B/P (MAP) Pulse Ox O2 Delivery O2 Flow Rate FiO2 11/24/18 07:10 Room Air 11/24/18 03:00 97.9 101 18 168/77 (107) 98 97.9 Physical Exam General: Cooperative, mild distress Heart: Regular rate, Normal S1, Other (TACHY) Lungs: Clear Abdomen: Normal bowel sounds, Soft, No tenderness Extremities: No clubbing, No cyanosis, No edema Skin: No breakdown, No significant lesion Labs LABS PATIENT: EVGENY TAYLOR ACCT: [id number] LOC: [address] [place] [address] U: [id number] AGE/SX: 63/F ROOM: 434 RE11/18/[address]: MICHELLE RAYA MD : [id number] BED: 1 DIS: STATUS: ADM IN TLOC: SPEC #: [id number] LUPILLO: 11/18/18 STATUS: RUI REDallin #: [id number] RECD: 11/18/[address] [facility] [address]: MICHELLE RAYA MD SOURCE: BLOOD ENTR: 11/18/18 [facility] DR: JANEY COTE DO [facility]: ORDERED: BCULT Procedure Result BLOOD CULTURE Final NO GROWTH AFTER 5 DAYS Laboratory Tests Test 11/23/18 09:20 11/23/18 10:36 11/23/18 11:12 11/23/18 17:07 Glucose (Fingerstick) 381 mg/dL (70-99) 219 mg/dL (70-99) 168 mg/dL (70-99) 330 mg/dL (70-99) Test 11/23/18 21:19 Glucose (Fingerstick) 149 mg/dL (70-99) Assessment and Plan Assessmemt and Plan Problems Medical Problems: (1) Acute renal failure Status: Acute (2) Altered mental status Status: Acute (3) DKA (diabetic ketoacidoses) Status: Acute (4) Hypermagnesemia Status: Acute (5) Hypernatremia Status: Acute (6) Hyperphosphatemia Status: Acute (7) Severe sepsis Status: Acute (8) Tachycardia Status: Acute Comment Review of Relevant I have reviewed the following items kenyatta (where applicable) has been applied. Labs Laboratory Tests Test 11/22/18 09:14 11/22/18 12:08 11/22/18 14:04 11/22/18 16:46 Glucose (Fingerstick) 79 mg/dL (70-99) 135 mg/dL (70-99) 168 mg/dL (70-99) 259 mg/dL (70-99) Test 11/22/18 21:02 11/22/18 21:39 11/23/18 07:44 11/23/18 07:45 Glucose (Fingerstick) 49 mg/dL (70-99) 119 mg/dL (70-99) 445 mg/dL (70-99) Phosphorus Level 3.7 mg/dL (2.6-4.7) Magnesium Level 1.9 mg/dL (1.8-2.4) Test 11/23/18 09:20 11/23/18 10:36 11/23/18 11:12 11/23/18 17:07 Glucose (Fingerstick) 381 mg/dL (70-99) 219 mg/dL (70-99) 168 mg/dL (70-99) 330 mg/dL (70-99) Test 11/23/18 21:19 Glucose (Fingerstick) 149 mg/dL (70-99) Laboratory Tests Test 11/23/18 09:20 11/23/18 10:36 11/23/18 11:12 11/23/18 17:07 Glucose (Fingerstick) 381 mg/dL (70-99) 219 mg/dL (70-99) 168 mg/dL (70-99) 330 mg/dL (70-99) Test 11/23/18 21:19 Glucose (Fingerstick) 149 mg/dL (70-99) Microbiology 11/18/18 Blood Culture - Final, Complete NO GROWTH AFTER 5 DAYS Medications Current Medications Sodium Chloride 1,000 ml @ 1,000 mls/hr Q1H IV Last administered on 11/18/18at 10:49; Start 11/18/18 at 10:28; Stop 11/18/18 at 11:27; Status DC Sodium Chloride 1,000 ml @ 1,000 mls/hr 1X ONCE IV Last administered on 11/18/18at 11:15; Start 11/18/18 at 10:30; Stop 11/18/18 at 13:34; Status DC Insulin Human Regular (HumuLIN R VIAL) 10 unit 1X ONCE IV Last administered on 11/18/18at 11:16; Start 11/18/18 at 10:30; Stop 11/18/18 at 10:35; Status DC Insulin Human Regular 150 ml @ 0 mls/hr 1X ONCE IV Last administered on 11/18/18 11:24; Start 11/18/18 at 10:45; Stop 11/18/18 at 10:46; Status DC Sodium Chloride 1,000 ml @ 1,000 mls/hr 1X ONCE IV ; Start 11/18/18 at 11:30; Stop 11/18/18 at 12:29; Status Cancel Ceftriaxone Sodium (Rocephin) 1 gm 1X ONCE IVP Last administered on 11/18/18at 11:48; Start 11/18/18 at 11:30; Stop 11/18/18 at 11:33; Status DC Vancomycin HCl 250 ml @ 250 mls/hr 1X ONCE IV Last administered on 11/18/18 11:53; Start 11/18/18 at 11:30; Stop 11/18/18 at 12:29; Status DC Sodium Chloride 1,000 ml @ 150 mls/hr Q6H40M IV ; Start 11/18/18 at 12:00; Stop 11/18/18 at 15:15; Status DC Divalproex Sodium (Depakote Er) 500 mg QHS PO Last administered on 11/19/18 21:05; Start 11/18/18 at 21:00; Stop 11/21/18 at 23:25; Status DC Trazodone HCl (Desyrel) 100 mg QHS PO Last administered on 11/23/18at 21:20; Start 11/18/18 at 21:00 Olanzapine (ZyPREXA) 20 mg QHS PO Last administered on 11/23/18at 21:20; Start 11/18/18 at 21:00 Non-Formulary Medication (Trazodone Hcl ) 1 tab QHS PO ; Start 11/18/18 at 21:00; Status UNV Olanzapine (ZyPREXA IM) 10 mg PRN BID PRN IM SCHIZOPHRENIA Last administered on 11/18/18at 13:40; Start 11/18/18 at 13:30 Sodium Chloride 2,000 ml @ 0 mls/hr 1X ONCE IV ; Start 11/18/18 at 13:45; Stop 11/18/18 at 13:45; Status DC Sodium Chloride 1,000 ml @ 0 mls/hr Q1H IV Last administered on 11/18/18at 15:00; Start 11/18/18 at 14:00; Stop 11/18/18 at 15:01; Status DC Dextrose/Sodium Chloride 1,000 ml @ 250 mls/hr 1X ONCE IV Last administered on 11/18/18at 14:08; Start 11/18/18 at 14:15; Stop 11/18/18 at 19:28; Status DC Fentanyl Citrate 30 ml @ 0 mls/hr CONT PRN IV SEE PROTOCOL; Start 11/18/18 at 14:15; Status UNV Chlorhexidine Gluconate (Peridex) 15 ml BID MM ; Start 11/18/18 at 21:00; Status UNV Midazolam HCl 100 ml @ 0 mls/hr CONT PRN IV SEE PROTOCOL; Start 11/18/18 at 14:15; Status UNV Fentanyl Citrate 30 ml @ 0 mls/hr CONT PRN IV SEE PROTOCOL; Start 11/18/18 at 14:30; Status UNV Midazolam HCl 100 ml @ 0 mls/hr CONT PRN IV SEE PROTOCOL; Start 11/18/18 at 14:30; Status UNV Potassium Chloride/Water 100 ml @ 100 mls/hr Q1H IV Last administered on 11/18/18at 18:33; Start 11/18/18 at 15:00; Stop 11/18/18 at 18:59; Status DC Potassium Phosphate 20 mmol/ Sodium Chloride 256.6667 ml @ 128.... Q2H IV Last administered on 11/18/18at 17:28; Start 11/18/18 at 15:00; Stop 11/18/18 at 18:59; Status DC Potassium Phosphate 13.6 mmol/Dextrose 104.5333 ml @ 52.267 m... Q2H IV ; Start 11/18/18 at 15:15; Stop 11/18/18 at 19:14; Status UNV Ziprasidone (Geodon Im) 20 mg 1X ONCE IM ; Start 11/18/18 at 16:15; Stop 11/18/18 at 16:16; Status DC Ceftriaxone Sodium (Rocephin) 1 gm Q24H IVP Last administered on 11/23/18 11:53; Start 11/19/18 at 12:00 Dextrose/Sodium Chloride 1,000 ml @ 250 mls/hr 1X ONCE IV Last administered on 11/18/18 17:54; Start 11/18/18 at 17:45; Stop 11/18/18 at 19:28; Status DC Insulin Glargine (Lantus) 30 units QHS SQ Last administered on 11/23/18 21:23; Start 11/18/18 at 21:00 Insulin Human Lispro (HumaLOG) 10 units TIDWMEALS SQ Last administered on 11/23/18 17:13; Start 11/19/18 at 08:00 Insulin Human Lispro (HumaLOG) 5 units Q6HRS SQ ; Start 11/19/18 at 00:00; Stop 11/19/18 at 16:31; Status DC Fentanyl Citrate (Fentanyl 2ml Vial) 25 mcg PRN Q3HRS PRN IV PAIN Last administered on 11/21/18 10:37; Start 11/18/18 at 19:30 Sodium Chloride 1,000 ml @ 125 mls/hr Q8H IV Last administered on 11/19/18 11:27; Start 11/18/18 at 19:30; Stop 11/19/18 at 13:59; Status DC Dextrose (Dextrose 50%-Water Syringe) 12.5 gm PRN Q15MIN PRN IV SEE COMMENTS Last administered on 11/19/18 11:49; Start 11/18/18 at 19:45; Stop 11/20/18 at 18:40; Status DC Amino Acids/ Glycerin/ Electrolytes 1,000 ml @ 75 mls/hr [id number] IV Last administered on 5/8/19at 02:34; Start 11/19/18 at 10:30; Stop 11/21/18 at 13:15; Status DC Insulin Human Lispro (HumaLOG) 6 units 1X ONCE SQ Last administered on 11/20/18at 09:53; Start 11/20/18 at 10:00; Stop 11/20/18 at 10:01; Status DC Insulin Human Regular 150 unit/ Sodium Chloride 151.5 ml @ 0 mls/hr CONT PRN IV SEE I/O RECORD Last administered on 11/20/18at 10:39; Start 11/20/18 at 10:30; Stop 11/20/18 at 16:56; Status DC Sodium Chloride 1,000 ml @ 1,000 mls/hr Q1H IV Last administered on 11/20/18at 10:36; Start 11/20/18 at 10:23; Stop 11/20/18 at 11:22; Status DC Sodium Chloride 1,000 ml @ 250 mls/hr Q4H IV Last administered on 11/20/18at 11:29; Start 11/20/18 at 10:26; Stop 11/20/18 at 18:40; Status DC Sodium Chloride 1,000 ml @ 250 mls/hr Q4H IV ; Start 11/20/18 at 10:26; Stop 11/20/18 at 18:40; Status DC Dextrose/Sodium Chloride 1,000 ml @ 250 mls/hr Q4H IV Last administered on 11/20/18at 13:33; Start 11/20/18 at 10:26; Stop 11/20/18 at 18:40; Status DC Insulin Human Regular 150 unit/ Sodium Chloride 151.5 ml @ 0 mls/hr CONT PRN PRN IV PER PROTOCOL; Start 11/20/18 at 10:30; Status UNV Potassium Chloride/Water 100 ml @ 100 mls/hr PRN Q1HR PRN IV SEE COMMENTS; Start 11/20/18 at 10:30; Stop 11/20/18 at 18:40; Status DC Potassium Chloride/Water 100 ml @ 100 mls/hr PRN Q1HR PRN IV SEE COMMENTS; Start 11/20/18 at 10:30; Stop 11/20/18 at 18:40; Status DC Lactobacillus Rhamnosus (Culturelle) 1 cap BID PO Last administered on 11/23/18at 21:20; Start 11/20/18 at 21:00 Insulin Human Lispro (HumaLOG) 0-7 UNITS TIDWMEALS SQ Last administered on 11/23/18at 12:18; Start 11/20/18 at 17:00 Dextrose (Dextrose 50%-Water Syringe) 12.5 gm PRN Q15MIN PRN IV SEE COMMENTS Last administered on 11/22/18at 21:06; Start 11/20/18 at 17:00 Potassium Chloride (Klor-Con) 40 meq 1X ONCE PO ; Start 11/20/18 at 17:30; Stop 11/20/18 at 17:31; Status UNV Potassium Chloride (Klor-Con) 40 meq Q2H PO ; Start 11/20/18 at 17:30; Stop 11/20/18 at 19:31; Status UNV Potassium Chloride (Klor-Con) 40 meq Q2H PO ; Start 11/20/18 at 17:30; Stop 11/20/18 at 21:31; Status UNV Magnesium Sulfate/ Dextrose 100 ml @ 50 mls/hr PRN DAILY PRN IV SEE COMMENTS; Start 11/20/18 at 17:27; Stop 11/22/18 at 14:19; Status DC Potassium Phos/ Sodium Phos (Phos-Nak) 1 pkt PRN BID PRN PO SEE COMMENTS; Start 11/20/18 at 21:00 Sodium Phosphate 40 mmol/Dextrose 263.3333 ml @ 62.5 mls/hr 1X ONCE IV ; Start 11/20/18 at 17:30; Stop 11/20/18 at 21:42; Status UNV Potassium Phosphate 15 mmol/ Sodium Chloride 255 ml @ 62.5 mls/hr 1X ONCE IV Last administered on 11/20/18at 18:03; Start 11/20/18 at 18:00; Stop 11/20/18 at 22:04; Status DC Valproic Acid (Depakene) 250 mg BID NG Last administered on 11/23/18at 21:20; Start 11/22/18 at 00:00 Potassium Chloride (KCl Oral Soln) 40 meq 1X ONCE NG Last administered on 11/22/18at 05:50; Start 11/22/18 at 06:00; Stop 11/22/18 at 06:01; Status DC Potassium Chloride/Water 100 ml @ 100 mls/hr Q1H IV Last administered on 11/22/18at 19:37; Start 11/22/18 at 15:00; Stop 11/22/18 at 18:59; Status DC Magnesium Sulfate 50 ml @ 25 mls/hr PRN DAILY PRN IV MAG < 1.7; Start 11/22/18 at 14:15; Stop 11/25/18 at 09:01 Sodium Phosphate 15 mmol/Dextrose 255 ml @ 125 mls/hr PRN 1X PRN IV SEE COMMENTS; Start 11/22/18 at 14:15 Sodium Phosphate 15 mmol/Sodium Chloride 255 ml @ 125 mls/hr PRN 1X PRN IV SEE COMMENTS; Start 11/22/18 at 14:15 Potassium Chloride/Water 100 ml @ 100 mls/hr PRN Q1HR PRN IV SEE COMMENTS; Start 11/22/18 at 14:15 Active Scripts Active Reported Divalproex Sodium Er (Divalproex Sodium) 500 Mg Tab.er.24h 1 Tab PO QHS Trazodone Hcl 100 Mg Tablet 1 Tab PO QHS Trazodone Hcl 50 Mg Tablet 1 Tab PO QHS Olanzapine 20 Mg Tablet 1 Tab PO QHS Humalog (Insulin Lispro) 100 Unit/1 Ml Cartridge 10 Unit SQ TIDWMEALS Lantus (Insulin Glargine,Hum.rec.anlog) 100 Unit/1 Ml Vial 30 Unit SQ HS Vitals/I & O Vital Sign - Last 24 Hours 11/23/18 11/23/18 11/23/18 11/23/18 11:00 15:00 19:00 19:50 Temp 98.4 98.1 97.7 98.4 98.1 97.7 Pulse 94 75 68 Resp 18 18 18 B/P (MAP) 112/66 (81) 114/50 (71) 121/50 (73) Pulse Ox 97 97 90 O2 Delivery Room Air Room Air Room Air Room Air 11/23/18 11/24/18 11/24/18 23:00 03:00 07:10 Temp 98.1 97.9 98.1 97.9 Pulse 94 101 Resp 16 18 B/P (MAP) 99/61 (74) 168/77 (107) Pulse Ox 99 98 O2 Delivery Room Air Room Air Room Air Intake and Output 0 11/23/18 11/23/18 11/24/18 14:59 22:59 06:59 Intake Total 100 ml 820 ml Balance 100 ml 820 ml Nutrition Consultation Dietary Evaluation: Recommendations by RD: Increase Calorie Intake Comments: REC TF via dobhoff per following: Glucerna 1.2@20 ml/hr, increase 10 ml q8 hrs as tolerated to goal rate 45 ml/hr w/100 ml water flushes q4 hrs Can stop PPN once TF started and pt is tolerating 11/23/2018-Glucerna 1.2 @ goal rate 45 ml/hr w/100 ml water flushes q4 hrs Expected Outcomes/Goals: to meet > 75% est nutr needs - not met, new goal established New goal 11/21: TF via dobhoff to meet >75% est needs Malnutrition Findings: Food and Nutrition Intake (Sev: <50% est energy req 5days Body Fat Depletion (Non Severe: Mild Depletion Weight Status: Underweight RADHA MCADAMS MD November 24, 2018 08:50
[2018-11-24] MEDS: INSULIN LISPRO 300 UNITS/3 ML INSULN.PEN. SQ SCH ×6 (08:55→17:29)
[2018-11-24 11:00] VITALS: BP 107/52
--- NOTE | 2018-11-24 11:55 | NUR ---
BS 43, pt sleeping, easily aroused. D50 1/2 amp given. New bottle of TF hung. Pt's at bedside.
[2018-11-24] MEDS: DEXTROSE 50% 25 GM / 50ML DISP.SYRIN. IV PRN ×2 (11:57→20:37)
[2018-11-24] MEDS: cefTRIAXone IV Push 1 GM VIAL. IVP SCH (11:58)
--- NOTE | 2018-11-24 13:35 | NUR ---
BS 127
[2018-11-24 15:09] VITALS: BP 125/61
--- NOTE | 2018-11-24 16:48 | NUR ---
8 laly removed anterior R knee, 3 removed from inner R knee, 7 removed from ant knee. Steri-strips placed to all incisional areas.
[2018-11-24 19:00] VITALS: BP 102/58
--- NOTE | 2018-11-24 20:40 | NUR ---
FSBS 61, hypoglycemia protocol in palced and pt treated.
[2018-11-24] MEDS: OLANZapine 5 MG TABLET PO SCH (20:49)
[2018-11-24] MEDS: INSULIN GLARGINE 300 UNITS/3 ML INSULN.PEN. SQ SCH (21:00)
[2018-11-24] MEDS: traZODone 100 MG TABLET. PO SCH ×2 (21:00→23:12)
--- NOTE | 2018-11-24 21:00 | NUR ---
Blood sugar rechecked after 1/2 amp D 50% given ,[id number], Dr sagastume notified and adjusted Lantus dose tonight to 12 units. Will monitor pt.
[2018-11-24] MEDS ORDERED: INSULIN GLARGINE 300 UNITS/3 ML INSULN.PEN. SQ ONE (21:30)
[2018-11-24 22:54] VITALS: BP 135/67
[2018-11-25] VITALS (8 sets, daily range): BP systolic 88–134; BP diastolic 46–91
[2018-11-25 05:35] LABS: BASO % 1 % (0-3); EOS # 0.1 x10^3/uL (0.0-0.7); EOS % 1 % (0-3); HEMATOCRIT 33.6 % (36.0-47.0); HEMOGLOBIN 11.2 g/dL (12.0-15.5); LYMPH # 1.7 x10^3/uL (1.0-4.8); LYMPH % 21 % (24-48); MEAN CORPUSCULAR HEMOGLOBIN 30 pg (25-35); MEAN CORPUSCULAR HGB CONC 33 g/dL (31-37); MEAN CORPUSCULAR VOLUME 89 fL (79-100); MONO # 0.8 x10^3/uL (0.0-1.1); MONO % 10 % (0-9); NEUT # 5.5 x10^3uL (1.8-7.7); NEUT % 67 % (31-73); PLATELET COUNT 315 x10^3/uL (140-400); RED BLOOD COUNT 3.77 x10^6/uL (3.50-5.40); RED CELL DISTRIBUTION WIDTH 14.7 % (11.5-14.5); WHITE BLOOD COUNT 8.1 x10^3/uL (4.0-11.0)
[2018-11-25 06:11] LABS: CALCIUM 8.8 mg/dL (8.5-10.1); CREATININE 0.7 mg/dL (0.6-1.0); GFR 84.8; POTASSIUM 4.1 mmol/L (3.5-5.1)
[2018-11-25] MEDS: INSULIN LISPRO 300 UNITS/3 ML INSULN.PEN. SQ SCH ×6 (08:00→17:00)
[2018-11-25] MEDS: LACTOBACILLUS RHAMNOSUS GG 1 CAPSULE. PO SCH ×2 (08:42→20:55)
[2018-11-25] MEDS: VALPROIC ACID (AS SODIUM SALT) 250 MG/5 ML SOLUTION. NG SCH ×2 (08:42→20:55)
--- NOTE | 2018-11-25 11:47 | NUR ---
Pt's BP 88/54, HR 106, Pt. sitting up to chair, at bedside. Dr. Joanne shipman.
--- NOTE | 2018-11-25 11:47 | PDOC ---
PROGRESS NOTES Chief Complaint Chief Complaint DKA Severe metabolic encephalopathy Bipolar Severe sepsis Hypernatremia Acute renal failure Tachycardia Small focus of hypoattenuation in the medial right frontal lobe likely chronic encephalomalacia or chronic ischemia. This may have been present on the prior study. Stable ventriculomegaly. No evidence of acute intracranial hemorrhage. 11/24 SLEEPING most of day, awake at night d/w son in room 11/25 gLUCOSE LABILE adjusting insulin, needs to chk bp both arms History of Present Illness History of Present Illness Patient seen and examined Her son is present I discussed the case with him and the nurse back on insulin drip last 11/20 because of recurrent DKA 11/23, HYPOGLYCEMIC LAST NIGHT, LANTUS HELD, NOW HYPERGLYCEMIC 25 min pt exam, chart review, > 50% of time spent with exam, chart review, pt care coordination Vitals Vitals Vital Signs Date Time Temp Pulse Resp B/P (MAP) Pulse Ox O2 Delivery O2 Flow Rate FiO2 11/25/18 07:05 97.2 80 16 111/66 (81) 94 Room Air 97.2 Physical Exam General: Cooperative, mild distress, Other (confused but not agitated today) Heart: Regular rate, Normal S1, Other (TACHY) Lungs: Clear Abdomen: Normal bowel sounds, Soft, No tenderness Extremities: No clubbing, No cyanosis, No edema Skin: No breakdown, No significant lesion Labs LABS PATIENT: EVGENY TAYLOR ACCT: [id number] LOC: [address] [place] [address] U: [id number] AGE/SX: 63/F ROOM: 434 RE11/18/[address]: MICHELLE RAYA MD : [id number] BED: 1 DIS: STATUS: ADM IN TLOC: SPEC #: [id number] LUPILLO: 11/18/18 STATUS: RUI ERWIN #: [id number] RECD: 11/18/[address] [facility] [address]: MICHELLE RAYA MD SOURCE: BLOOD ENTR: 11/18/[address]: JANEY COTE DO [facility]: ORDERED: BCULT Procedure Result BLOOD CULTURE Final NO GROWTH AFTER 5 DAYS Laboratory Tests Test 11/24/18 11:52 11/24/18 12:15 11/24/18 13:34 11/24/18 16:53 Glucose (Fingerstick) 43 mg/dL (70-99) 127 mg/dL (70-99) 321 mg/dL (70-99) Magnesium Level 1.9 mg/dL (1.8-2.4) Test 11/24/18 20:34 11/24/18 20:50 11/24/18 23:02 11/25/18 04:35 Glucose (Fingerstick) 61 mg/dL (70-99) 164 mg/dL (70-99) 83 mg/dL (70-99) White Blood Count 8.1 x10^3/uL (4.0-11.0) Red Blood Count 3.77 x10^6/uL (3.50-5.40) Hemoglobin 11.2 g/dL (12.0-15.5) Hematocrit 33.6 % (36.0-47.0) Mean Corpuscular Volume 89 fL (79-100) Mean Corpuscular Hemoglobin 30 pg (25-35) Mean Corpuscular Hemoglobin Concent 33 g/dL (31-37) Red Cell Distribution Width 14.7 % (11.5-14.5) Platelet Count 315 x10^3/uL (140-400) Neutrophils (%) (Auto) 67 % (31-73) Lymphocytes (%) (Auto) 21 % (24-48) Monocytes (%) (Auto) 10 % (0-9) Eosinophils (%) (Auto) 1 % (0-3) Basophils (%) (Auto) 1 % (0-3) Neutrophils # (Auto) 5.5 x10^3uL (1.8-7.7) Lymphocytes # (Auto) 1.7 x10^3/uL (1.0-4.8) Monocytes # (Auto) 0.8 x10^3/uL (0.0-1.1) Eosinophils # (Auto) 0.1 x10^3/uL (0.0-0.7) Basophils # (Auto) 0.0 x10^3/uL (0.0-0.2) Sodium Level 143 mmol/L (136-145) Potassium Level 4.1 mmol/L (3.5-5.1) Chloride Level 105 mmol/L (98-107) Carbon Dioxide Level 33 mmol/L (21-32) Anion Gap 5 (6-14) Blood Urea Nitrogen 18 mg/dL (7-20) Creatinine 0.7 mg/dL (0.6-1.0) Estimated GFR (Cockcroft-Gault) 84.8 Glucose Level 204 mg/dL (70-99) Calcium Level 8.8 mg/dL (8.5-10.1) Test 11/25/18 07:15 Glucose (Fingerstick) 220 mg/dL (70-99) Assessment and Plan Assessmemt and Plan Problems Medical Problems: (1) Acute renal failure Status: Acute (2) Altered mental status Status: Acute (3) DKA (diabetic ketoacidoses) Status: Acute (4) Hypermagnesemia Status: Acute (5) Hypernatremia Status: Acute (6) Hyperphosphatemia Status: Acute (7) Severe sepsis Status: Acute (8) Tachycardia Status: Acute Comment Review of Relevant I have reviewed the following items [email or web address] (where applicable) has been applied. Labs Laboratory Tests Test 11/23/18 17:07 11/23/18 21:19 11/24/18 08:12 11/24/18 11:52 Glucose (Fingerstick) 330 mg/dL (70-99) 149 mg/dL (70-99) 253 mg/dL (70-99) 43 mg/dL (70-99) Test 11/24/18 12:15 11/24/18 13:34 11/24/18 16:53 11/24/18 20:34 Magnesium Level 1.9 mg/dL (1.8-2.4) Glucose (Fingerstick) 127 mg/dL (70-99) 321 mg/dL (70-99) 61 mg/dL (70-99) Test 11/24/18 20:50 11/24/18 23:02 11/25/18 04:35 11/25/18 07:15 Glucose (Fingerstick) 164 mg/dL (70-99) 83 mg/dL (70-99) 220 mg/dL (70-99) White Blood Count 8.1 x10^3/uL (4.0-11.0) Red Blood Count 3.77 x10^6/uL (3.50-5.40) Hemoglobin 11.2 g/dL (12.0-15.5) Hematocrit 33.6 % (36.0-47.0) Mean Corpuscular Volume 89 fL (79-100) Mean Corpuscular Hemoglobin 30 pg (25-35) Mean Corpuscular Hemoglobin Concent 33 g/dL (31-37) Red Cell Distribution Width 14.7 % (11.5-14.5) Platelet Count 315 x10^3/uL (140-400) Neutrophils (%) (Auto) 67 % (31-73) Lymphocytes (%) (Auto) 21 % (24-48) Monocytes (%) (Auto) 10 % (0-9) Eosinophils (%) (Auto) 1 % (0-3) Basophils (%) (Auto) 1 % (0-3) Neutrophils # (Auto) 5.5 x10^3uL (1.8-7.7) Lymphocytes # (Auto) 1.7 x10^3/uL (1.0-4.8) Monocytes # (Auto) 0.8 x10^3/uL (0.0-1.1) Eosinophils # (Auto) 0.1 x10^3/uL (0.0-0.7) Basophils # (Auto) 0.0 x10^3/uL (0.0-0.2) Sodium Level 143 mmol/L (136-145) Potassium Level 4.1 mmol/L (3.5-5.1) Chloride Level 105 mmol/L (98-107) Carbon Dioxide Level 33 mmol/L (21-32) Anion Gap 5 (6-14) Blood Urea Nitrogen 18 mg/dL (7-20) Creatinine 0.7 mg/dL (0.6-1.0) Estimated GFR (Cockcroft-Gault) 84.8 Glucose Level 204 mg/dL (70-99) Calcium Level 8.8 mg/dL (8.5-10.1) Laboratory Tests Test 11/24/18 11:52 11/24/18 12:15 11/24/18 13:34 11/24/18 16:53 Glucose (Fingerstick) 43 mg/dL (70-99) 127 mg/dL (70-99) 321 mg/dL (70-99) Magnesium Level 1.9 mg/dL (1.8-2.4) Test 11/24/18 20:34 11/24/18 20:50 11/24/18 23:02 11/25/18 04:35 Glucose (Fingerstick) 61 mg/dL (70-99) 164 mg/dL (70-99) 83 mg/dL (70-99) White Blood Count 8.1 x10^3/uL (4.0-11.0) Red Blood Count 3.77 x10^6/uL (3.50-5.40) Hemoglobin 11.2 g/dL (12.0-15.5) Hematocrit 33.6 % (36.0-47.0) Mean Corpuscular Volume 89 fL (79-100) Mean Corpuscular Hemoglobin 30 pg (25-35) Mean Corpuscular Hemoglobin Concent 33 g/dL (31-37) Red Cell Distribution Width 14.7 % (11.5-14.5) Platelet Count 315 x10^3/uL (140-400) Neutrophils (%) (Auto) 67 % (31-73) Lymphocytes (%) (Auto) 21 % (24-48) Monocytes (%) (Auto) 10 % (0-9) Eosinophils (%) (Auto) 1 % (0-3) Basophils (%) (Auto) 1 % (0-3) Neutrophils # (Auto) 5.5 x10^3uL (1.8-7.7) Lymphocytes # (Auto) 1.7 x10^3/uL (1.0-4.8) Monocytes # (Auto) 0.8 x10^3/uL (0.0-1.1) Eosinophils # (Auto) 0.1 x10^3/uL (0.0-0.7) Basophils # (Auto) 0.0 x10^3/uL (0.0-0.2) Sodium Level 143 mmol/L (136-145) Potassium Level 4.1 mmol/L (3.5-5.1) Chloride Level 105 mmol/L (98-107) Carbon Dioxide Level 33 mmol/L (21-32) Anion Gap 5 (6-14) Blood Urea Nitrogen 18 mg/dL (7-20) Creatinine 0.7 mg/dL (0.6-1.0) Estimated GFR (Cockcroft-Gault) 84.8 Glucose Level 204 mg/dL (70-99) Calcium Level 8.8 mg/dL (8.5-10.1) Test 11/25/18 07:15 Glucose (Fingerstick) 220 mg/dL (70-99) Microbiology 11/18/18 Blood Culture - Final, Complete NO GROWTH AFTER 5 DAYS Medications Current Medications Sodium Chloride 1,000 ml @ 1,000 mls/hr Q1H IV Last administered on 11/18/18at 10:49; Start 11/18/18 at 10:28; Stop 11/18/18 at 11:27; Status DC Sodium Chloride 1,000 ml @ 1,000 mls/hr 1X ONCE IV Last administered on 11/18/18at 11:15; Start 11/18/18 at 10:30; Stop 11/18/18 at 13:34; Status DC Insulin Human Regular (HumuLIN R VIAL) 10 unit 1X ONCE IV Last administered on 11/18/18 11:16; Start 11/18/18 at 10:30; Stop 11/18/18 at 10:35; Status DC Insulin Human Regular 150 ml @ 0 mls/hr 1X ONCE IV Last administered on 11/18/18at 11:24; Start 11/18/18 at 10:45; Stop 11/18/18 at 10:46; Status DC Sodium Chloride 1,000 ml @ 1,000 mls/hr 1X ONCE IV ; Start 11/18/18 at 11:30; Stop 11/18/18 at 12:29; Status Cancel Ceftriaxone Sodium (Rocephin) 1 gm 1X ONCE IVP Last administered on 11/18/18at 11:48; Start 11/18/18 at 11:30; Stop 11/18/18 at 11:33; Status DC Vancomycin HCl 250 ml @ 250 mls/hr 1X ONCE IV Last administered on 11/18/18at 11:53; Start 11/18/18 at 11:30; Stop 11/18/18 at 12:29; Status DC Sodium Chloride 1,000 ml @ 150 mls/hr Q6H40M IV ; Start 11/18/18 at 12:00; Stop 11/18/18 at 15:15; Status DC Divalproex Sodium (Depakote Er) 500 mg QHS PO Last administered on 11/19/18at 21:05; Start 11/18/18 at 21:00; Stop 11/21/18 at 23:25; Status DC Trazodone HCl (Desyrel) 100 mg QHS PO Last administered on 11/24/18at 23:12; Start 11/18/18 at 21:00 Olanzapine (ZyPREXA) 20 mg QHS PO Last administered on 11/24/18at 20:49; Start 11/18/18 at 21:00 Non-Formulary Medication (Trazodone Hcl ) 1 tab QHS PO ; Start 11/18/18 at 21:00; Status UNV Olanzapine (ZyPREXA IM) 10 mg PRN BID PRN IM SCHIZOPHRENIA Last administered on 11/18/18at 13:40; Start 11/18/18 at 13:30 Sodium Chloride 2,000 ml @ 0 mls/hr 1X ONCE IV ; Start 11/18/18 at 13:45; Stop 11/18/18 at 13:45; Status DC Sodium Chloride 1,000 ml @ 0 mls/hr Q1H IV Last administered on 11/18/18at 15:00; Start 11/18/18 at 14:00; Stop 11/18/18 at 15:01; Status DC Dextrose/Sodium Chloride 1,000 ml @ 250 mls/hr 1X ONCE IV Last administered on 11/18/18at 14:08; Start 11/18/18 at 14:15; Stop 11/18/18 at 19:28; Status DC Fentanyl Citrate 30 ml @ 0 mls/hr CONT PRN IV SEE PROTOCOL; Start 11/18/18 at 14:15; Status UNV Chlorhexidine Gluconate (Peridex) 15 ml BID MM ; Start 11/18/18 at 21:00; Status UNV Midazolam HCl 100 ml @ 0 mls/hr CONT PRN IV SEE PROTOCOL; Start 11/18/18 at 14:15; Status UNV Fentanyl Citrate 30 ml @ 0 mls/hr CONT PRN IV SEE PROTOCOL; Start 11/18/18 at 14:30; Status UNV Midazolam HCl 100 ml @ 0 mls/hr CONT PRN IV SEE PROTOCOL; Start 11/18/18 at 14:30; Status UNV Potassium Chloride/Water 100 ml @ 100 mls/hr Q1H IV Last administered on 11/18/18at 18:33; Start 11/18/18 at 15:00; Stop 11/18/18 at 18:59; Status DC Potassium Phosphate 20 mmol/ Sodium Chloride 256.6667 ml @ 128.... Q2H IV Last administered on 11/18/18at 17:28; Start 11/18/18 at 15:00; Stop 11/18/18 at 18:59; Status DC Potassium Phosphate 13.6 mmol/Dextrose 104.5333 ml @ 52.267 m... Q2H IV ; Start 11/18/18 at 15:15; Stop 11/18/18 at 19:14; Status UNV Ziprasidone (Geodon Im) 20 mg 1X ONCE IM ; Start 11/18/18 at 16:15; Stop 11/18/18 at 16:16; Status DC Ceftriaxone Sodium (Rocephin) 1 gm Q24H IVP Last administered on 11/24/18at 11:58; Start 11/19/18 at 12:00 Dextrose/Sodium Chloride 1,000 ml @ 250 mls/hr 1X ONCE IV Last administered on 11/18/18at 17:54; Start 11/18/18 at 17:45; Stop 11/18/18 at 19:28; Status DC Insulin Glargine (Lantus) 30 units QHS SQ Last administered on 11/23/18at 21:23; Start 11/18/18 at 21:00 Insulin Human Lispro (HumaLOG) 10 units TIDWMEALS SQ Last administered on 11/24/18at 17:29; Start 11/19/18 at 08:00 Insulin Human Lispro (HumaLOG) 5 units Q6HRS SQ ; Start 11/19/18 at 00:00; Stop 11/19/18 at 16:31; Status DC Fentanyl Citrate (Fentanyl 2ml Vial) 25 mcg PRN Q3HRS PRN IV PAIN Last admin istered on 11/21/18at 10:37; Start 11/18/18 at 19:30 Sodium Chloride 1,000 ml @ 125 mls/hr Q8H IV Last administered on 11/19/18at 1 1:27; Start 11/18/18 at 19:30; Stop 11/19/18 at 13:59; Status DC Dextrose (Dextrose 50%-Water Syringe) 12.5 gm PRN Q15MIN PRN IV SEE COMMENTS Last administered on 11/19/18at 11:49; Start 11/18/18 at 19:45; Stop 11/20/18 at 18:40; Status DC Amino Acids/ Glycerin/ Electrolytes 1,000 ml @ 75 mls/hr [id number] IV Last administered on 11/21/18at 02:34; Start 11/19/18 at 10:30; Stop 11/21/18 at 13:15; Status DC Insulin Human Lispro (HumaLOG) 6 units 1X ONCE SQ Last administered on 11/20/18at 09:53; Start 11/20/18 at 10:00; Stop 11/20/18 at 10:01; Status DC Insulin Human Regular 150 unit/ Sodium Chloride 151.5 ml @ 0 mls/hr CONT PRN IV SEE I/O RECORD Last administered on 11/20/18at 10:39; Start 11/20/18 at 10:30; Stop 11/20/18 at 16:56; Status DC Sodium Chloride 1,000 ml @ 1,000 mls/hr Q1H IV Last administered on 11/20/18at 10:36; Start 11/20/18 at 10:23; Stop 11/20/18 at 11:22; Status DC Sodium Chloride 1,000 ml @ 250 mls/hr Q4H IV Last administered on 11/20/18at 11:29; Start 11/20/18 at 10:26; Stop 11/20/18 at 18:40; Status DC Sodium Chloride 1,000 ml @ 250 mls/hr Q4H IV ; Start 11/20/18 at 10:26; Stop 11/20/18 at 18:40; Status DC Dextrose/Sodium Chloride 1,000 ml @ 250 mls/hr Q4H IV Last administered on 11/20/18at 13:33; Start 11/20/18 at 10:26; Stop 11/20/18 at 18:40; Status DC Insulin Human Regular 150 unit/ Sodium Chloride 151.5 ml @ 0 mls/hr CONT PRN PRN IV PER PROTOCOL; Start 11/20/18 at 10:30; Status UNV Potassium Chloride/Water 100 ml @ 100 mls/hr PRN Q1HR PRN IV SEE COMMENTS; Start 11/20/18 at 10:30; Stop 11/20/18 at 18:40; Status DC Potassium Chloride/Water 100 ml @ 100 mls/hr PRN Q1HR PRN IV SEE COMMENTS; Start 11/20/18 at 10:30; Stop 11/20/18 at 18:40; Status DC Lactobacillus Rhamnosus (Culturelle) 1 cap BID PO Last administered on 11/25/18at 08:42; Start 11/20/18 at 21:00 Insulin Human Lispro (HumaLOG) 0-7 UNITS TIDWMEALS SQ Last administered on 11/24/18at 08:55; Start 11/20/18 at 17:00; Stop 11/24/18 at 13:42; Status DC Dextrose (Dextrose 50%-Water Syringe) 12.5 gm PRN Q15MIN PRN IV SEE COMMENTS Last administered on 11/24/18at 11:57; Start 11/20/18 at 17:00; Stop 11/24/18 at 14:44; Status DC Potassium Chloride (Klor-Con) 40 meq 1X ONCE PO ; Start 11/20/18 at 17:30; Stop 11/20/18 at 17:31; Status UNV Potassium Chloride (Klor-Con) 40 meq Q2H PO ; Start 11/20/18 at 17:30; Stop 11/20/18 at 19:31; Status UNV Potassium Chloride (Klor-Con) 40 meq Q2H PO ; Start 11/20/18 at 17:30; Stop 11/20/18 at 21:31; Status UNV Magnesium Sulfate/ Dextrose 100 ml @ 50 mls/hr PRN DAILY PRN IV SEE COMMENTS; Start 11/20/18 at 17:27; Stop 11/22/18 at 14:19; Status DC Potassium Phos/ Sodium Phos (Phos-Nak) 1 pkt PRN BID PRN PO SEE COMMENTS; Start 11/20/18 at 21:00 Sodium Phosphate 40 mmol/Dextrose 263.3333 ml @ 62.5 mls/hr 1X ONCE IV ; Start 11/20/18 at 17:30; Stop 11/20/18 at 21:42; Status UNV Potassium Phosphate 15 mmol/ Sodium Chloride 255 ml @ 62.5 mls/hr 1X ONCE IV Last administered on 11/20/18at 18:03; Start 11/20/18 at 18:00; Stop 11/20/18 at 22:04; Status DC Valproic Acid (Depakene) 250 mg BID NG Last administered on 11/25/18at 08:42; Start 11/22/18 at 00:00 Potassium Chloride (KCl Oral Soln) 40 meq 1X ONCE NG Last administered on 11/22/18at 05:50; Start 11/22/18 at 06:00; Stop 11/22/18 at 06:01; Status DC Potassium Chloride/Water 100 ml @ 100 mls/hr Q1H IV Last administered on 11/22/18at 19:37; Start 11/22/18 at 15:00; Stop 11/22/18 at 18:59; Status DC Magnesium Sulfate 50 ml @ 25 mls/hr PRN DAILY PRN IV MAG < 1.7; Start 11/22/18 at 14:15; Stop 11/25/18 at 09:01; Status DC Sodium Phosphate 15 mmol/Dextrose 255 ml @ 125 mls/hr PRN 1X PRN IV SEE COMMENTS; Start 11/22/18 at 14:15 Sodium Phosphate 15 mmol/Sodium Chloride 255 ml @ 125 mls/hr PRN 1X PRN IV SEE COMMENTS; Start 11/22/18 at 14:15 Potassium Chloride/Water 100 ml @ 100 mls/hr PRN Q1HR PRN IV SEE COMMENTS; Start 11/22/18 at 14:15 Insulin Human Lispro (HumaLOG) 0-5 UNITS TIDWMEALS SQ Last administered on 11/25/18at 08:49; Start 11/24/18 at 17:00 Dextrose (Dextrose 50%-Water Syringe) 12.5 gm PRN Q15MIN PRN IV SEE COMMENTS Last administered on 11/24/18at 20:37; Start 11/24/18 at 13:45 Insulin Glargine (Lantus) 12 units 1X ONCE SQ Last administered on 11/24/18at 21:43; Start 11/24/18 at 21:30; Stop 11/24/18 at 21:31; Status DC Active Scripts Active Reported Divalproex Sodium Er (Divalproex Sodium) 500 Mg Tab.er.24h 1 Tab PO QHS Trazodone Hcl 100 Mg Tablet 1 Tab PO QHS Trazodone Hcl 50 Mg Tablet 1 Tab PO QHS Olanzapine 20 Mg Tablet 1 Tab PO QHS Humalog (Insulin Lispro) 100 Unit/1 Ml Cartridge 10 Unit SQ TIDWMEALS Lantus (Insulin Glargine,Hum.rec.anlog) 100 Unit/1 Ml Vial 30 Unit SQ HS Vitals/I & O Vital Sign - Last 24 Hours 11/24/18 11/24/18 11/24/18 11/24/18 15:09 19:00 20:00 22:54 Temp 98.7 97.6 98.4 98.7 97.6 98.4 Pulse 77 82 85 Resp 16 18 18 B/P (MAP) 125/61 (82) 102/58 (73) 135/67 (89) Pulse Ox 96 97 98 O2 Delivery Room Air Room Air Room Air Room Air 11/25/18 11/25/18 11/25/18 02:44 07:05 07:05 Temp 98.5 97.2 98.5 97.2 Pulse 86 80 Resp 16 16 B/P (MAP) 97/46 (63) 111/66 (81) Pulse Ox 95 94 O2 Delivery Room Air Room Air Room Air Intake and Output 0 11/24/18 11/24/18 11/25/18 14:59 22:59 06:59 Intake Total 100 ml 645 ml Output Total 650 ml Balance 100 ml -5 ml Nutrition Consultation Dietary Evaluation: Recommendations by RD: Increase Calorie Intake Comments: REC TF via dobhoff per following: Glucerna 1.2@20 ml/hr, increase 10 ml q8 hrs as tolerated to goal rate 45 ml/hr w/100 ml water flushes q4 hrs Can stop PPN once TF started and pt is tolerating 11/23/2018-Glucerna 1.2 @ goal rate 45 ml/hr w/100 ml water flushes q4 hrs Expected Outcomes/Goals: to meet > 75% est nutr needs - not met, new goal established New goal 11/21: TF via dobhoff to meet >75% est needs Malnutrition Findings: Food and Nutrition Intake (Sev: <50% est energy req 5days Body Fat Depletion (Non Severe: Mild Depletion Weight Status: Underweight RADHA MCADAMS MD November 25, 2018 11:47
[2018-11-25] MEDS: cefTRIAXone IV Push 1 GM VIAL. IVP SCH (12:14)
--- NOTE | 2018-11-25 12:40 | NUR ---
Pt. sitting in chair, BP retaken, 51/30, HR 106. Pt. placed back in bed, BP rechecked at 127/65, HR 105. Pt. alert, appears comfortable, at bedside. states pt is at her normal baseline.
--- NOTE | 2018-11-25 14:07 | NUR ---
R arm BP 106/60, HR 103. L arm BP 111/63, HR 102. Dr. Rubio notified.
[2018-11-25] MEDS: traZODone 100 MG TABLET. PO SCH (20:55)
[2018-11-25] MEDS: OLANZapine 5 MG TABLET PO SCH (20:55)
[2018-11-25] MEDS: INSULIN GLARGINE 300 UNITS/3 ML INSULN.PEN. SQ SCH (21:11)
[2018-11-26] VITALS (7 sets, daily range): BP systolic 86–124; BP diastolic 48–89
[2018-11-26 05:40] LABS: ALBUMIN 2.5 g/dL (3.4-5.0); ALBUMIN/GLOBULIN RATIO 0.8 (1.0-1.7); CALCIUM 8.9 mg/dL (8.5-10.1); CREATININE 0.7 mg/dL (0.6-1.0); GFR 84.8; POTASSIUM 3.7 mmol/L (3.5-5.1); TOTAL BILIRUBIN 0.3 mg/dL (0.2-1.0); TOTAL PROTEIN 5.8 g/dL (6.4-8.2)
[2018-11-26] MEDS: INSULIN LISPRO 300 UNITS/3 ML INSULN.PEN. SQ SCH ×6 (08:00→17:00)
[2018-11-26] MEDS: LACTOBACILLUS RHAMNOSUS GG 1 CAPSULE. PO SCH ×2 (08:20→21:42)
[2018-11-26] MEDS: VALPROIC ACID (AS SODIUM SALT) 250 MG/5 ML SOLUTION. NG SCH ×2 (08:20→21:42)
--- NOTE | 2018-11-26 08:52 | PDOC ---
PROGRESS NOTES Chief Complaint Chief Complaint DKA Severe metabolic encephalopathy Bipolar Severe sepsis Hypernatremia Acute renal failure Tachycardia History of Present Illness History of Present Illness Ms Golden is a 63yo F w/ PMHx Lewy Body Dementia, BP2 disorder, DM, HTN who was recovering from right lower leg fracture surgery at [facility] after surgery at [facility] 1 week ago when she was found very confused today, not her normal baseline dementia according to her , bedside and was brought to ED. Found with DKA, glucose greater than 800, lactate elevated, sodium 150, cr elevated 2.5. Leukocytosis 25K. 11/24 SLEEPING most of day, awake at night d/w son in room 11/25 GLUCOSE LABILE adjusting insulin, needs to chk bp both arms Hypoglycemic past 2 nights, and did not sleep well. is present. Tolerating TF well. I discussed the case with him and the nurse 25 min pt exam, chart review, > 50% of time spent with exam, chart review, pt care coordination Placement is important. Given her Lewy Body disease and need for tube feeds and recovery from RLE fracture SNF may not be appropriate, but an LTAC discharge may be the most appropriate course of action. Vitals Vitals Vital Signs Date Time Temp Pulse Resp B/P (MAP) Pulse Ox O2 Delivery O2 Flow Rate FiO2 11/26/18 08:12 104/48 (66) 11/26/18 07:05 Room Air 11/26/18 07:00 98.8 80 18 95 98.8 Physical Exam General: Cooperative, mild distress, Other (confused but not agitated today) Heart: Regular rate, Normal S1, Other (TACHY) Lungs: Clear Abdomen: Normal bowel sounds, Soft, No tenderness Extremities: No clubbing, No cyanosis, No edema Skin: No breakdown, No significant lesion Labs LABS Laboratory Tests Test 11/25/18 11:41 11/25/18 17:01 11/25/18 20:53 11/26/18 04:45 Glucose (Fingerstick) 277 mg/dL (70-99) 88 mg/dL (70-99) 314 mg/dL (70-99) Sodium Level 145 mmol/L (136-145) Potassium Level 3.7 mmol/L (3.5-5.1) Chloride Level 104 mmol/L (98-107) Carbon Dioxide Level 32 mmol/L (21-32) Anion Gap 9 (6-14) Blood Urea Nitrogen 20 mg/dL (7-20) Creatinine 0.7 mg/dL (0.6-1.0) Estimated GFR (Cockcroft-Gault) 84.8 BUN/Creatinine Ratio 29 (6-20) Glucose Level 64 mg/dL (70-99) Calcium Level 8.9 mg/dL (8.5-10.1) Total Bilirubin 0.3 mg/dL (0.2-1.0) Aspartate Amino Transf (AST/SGOT) 32 U/L (15-37) Alanine Aminotransferase (ALT/SGPT) 42 U/L (14-59) Alkaline Phosphatase 181 U/L (46-116) Total Protein 5.8 g/dL (6.4-8.2) Albumin 2.5 g/dL (3.4-5.0) Albumin/Globulin Ratio 0.8 (1.0-1.7) Test 11/26/18 06:47 Glucose (Fingerstick) 74 mg/dL (70-99) Assessment and Plan Assessmemt and Plan Problems Medical Problems: (1) Acute renal failure Status: Acute (2) Altered mental status Status: Acute (3) DKA (diabetic ketoacidoses) Status: Acute (4) Hypermagnesemia Status: Acute (5) Hypernatremia Status: Acute (6) Hyperphosphatemia Status: Acute (7) Severe sepsis Status: Acute (8) Tachycardia Status: Acute Comment Review of Relevant I have reviewed the following items kenyatta (where applicable) has been applied. Labs Laboratory Tests Test 11/24/18 11:52 11/24/18 12:15 11/24/18 13:34 11/24/18 16:53 Glucose (Fingerstick) 43 mg/dL (70-99) 127 mg/dL (70-99) 321 mg/dL (70-99) Magnesium Level 1.9 mg/dL (1.8-2.4) Test 11/24/18 20:34 11/24/18 20:50 11/24/18 23:02 11/25/18 04:35 Glucose (Fingerstick) 61 mg/dL (70-99) 164 mg/dL (70-99) 83 mg/dL (70-99) White Blood Count 8.1 x10^3/uL (4.0-11.0) Red Blood Count 3.77 x10^6/uL (3.50-5.40) Hemoglobin 11.2 g/dL (12.0-15.5) Hematocrit 33.6 % (36.0-47.0) Mean Corpuscular Volume 89 fL (79-100) Mean Corpuscular Hemoglobin 30 pg (25-35) Mean Corpuscular Hemoglobin Concent 33 g/dL (31-37) Red Cell Distribution Width 14.7 % (11.5-14.5) Platelet Count 315 x10^3/uL (140-400) Neutrophils (%) (Auto) 67 % (31-73) Lymphocytes (%) (Auto) 21 % (24-48) Monocytes (%) (Auto) 10 % (0-9) Eosinophils (%) (Auto) 1 % (0-3) Basophils (%) (Auto) 1 % (0-3) Neutrophils # (Auto) 5.5 x10^3uL (1.8-7.7) Lymphocytes # (Auto) 1.7 x10^3/uL (1.0-4.8) Monocytes # (Auto) 0.8 x10^3/uL (0.0-1.1) Eosinophils # (Auto) 0.1 x10^3/uL (0.0-0.7) Basophils # (Auto) 0.0 x10^3/uL (0.0-0.2) Sodium Level 143 mmol/L (136-145) Potassium Level 4.1 mmol/L (3.5-5.1) Chloride Level 105 mmol/L (98-107) Carbon Dioxide Level 33 mmol/L (21-32) Anion Gap 5 (6-14) Blood Urea Nitrogen 18 mg/dL (7-20) Creatinine 0.7 mg/dL (0.6-1.0) Estimated GFR (Cockcroft-Gault) 84.8 Glucose Level 204 mg/dL (70-99) Calcium Level 8.8 mg/dL (8.5-10.1) Test 11/25/18 07:15 11/25/18 11:41 11/25/18 17:01 11/25/18 20:53 Glucose (Fingerstick) 220 mg/dL (70-99) 277 mg/dL (70-99) 88 mg/dL (70-99) 314 mg/dL (70-99) Test 11/26/18 04:45 11/26/18 06:47 Sodium Level 145 mmol/L (136-145) Potassium Level 3.7 mmol/L (3.5-5.1) Chloride Level 104 mmol/L (98-107) Carbon Dioxide Level 32 mmol/L (21-32) Anion Gap 9 (6-14) Blood Urea Nitrogen 20 mg/dL (7-20) Creatinine 0.7 mg/dL (0.6-1.0) Estimated GFR (Cockcroft-Gault) 84.8 BUN/Creatinine Ratio 29 (6-20) Glucose Level 64 mg/dL (70-99) Calcium Level 8.9 mg/dL (8.5-10.1) Total Bilirubin 0.3 mg/dL (0.2-1.0) Aspartate Amino Transf (AST/SGOT) 32 U/L (15-37) Alanine Aminotransferase (ALT/SGPT) 42 U/L (14-59) Alkaline Phosphatase 181 U/L (46-116) Total Protein 5.8 g/dL (6.4-8.2) Albumin 2.5 g/dL (3.4-5.0) Albumin/Globulin Ratio 0.8 (1.0-1.7) Glucose (Fingerstick) 74 mg/dL (70-99) Laboratory Tests Test 11/25/18 11:41 11/25/18 17:01 11/25/18 20:53 11/26/18 04:45 Glucose (Fingerstick) 277 mg/dL (70-99) 88 mg/dL (70-99) 314 mg/dL (70-99) Sodium Level 145 mmol/L (136-145) Potassium Level 3.7 mmol/L (3.5-5.1) Chloride Level 104 mmol/L (98-107) Carbon Dioxide Level 32 mmol/L (21-32) Anion Gap 9 (6-14) Blood Urea Nitrogen 20 mg/dL (7-20) Creatinine 0.7 mg/dL (0.6-1.0) Estimated GFR (Cockcroft-Gault) 84.8 BUN/Creatinine Ratio 29 (6-20) Glucose Level 64 mg/dL (70-99) Calcium Level 8.9 mg/dL (8.5-10.1) Total Bilirubin 0.3 mg/dL (0.2-1.0) Aspartate Amino Transf (AST/SGOT) 32 U/L (15-37) Alanine Aminotransferase (ALT/SGPT) 42 U/L (14-59) Alkaline Phosphatase 181 U/L (46-116) Total Protein 5.8 g/dL (6.4-8.2) Albumin 2.5 g/dL (3.4-5.0) Albumin/Globulin Ratio 0.8 (1.0-1.7) Test 11/26/18 06:47 Glucose (Fingerstick) 74 mg/dL (70-99) Microbiology 11/18/18 Blood Culture - Final, Complete NO GROWTH AFTER 5 DAYS Medications Current Medications Sodium Chloride 1,000 ml @ 1,000 mls/hr Q1H IV Last administered on 11/18/18at 10:49; Start 11/18/18 at 10:28; Stop 11/18/18 at 11:27; Status DC Sodium Chloride 1,000 ml @ 1,000 mls/hr 1X ONCE IV Last administered on 11/18/18at 11:15; Start 11/18/18 at 10:30; Stop 11/18/18 at 13:34; Status DC Insulin Human Regular (HumuLIN R VIAL) 10 unit 1X ONCE IV Last administered on 11/18/18at 11:16; Start 11/18/18 at 10:30; Stop 11/18/18 at 10:35; Status DC Insulin Human Regular 150 ml @ 0 mls/hr 1X ONCE IV Last administered on 11/18/18at 11:24; Start 11/18/18 at 10:45; Stop 11/18/18 at 10:46; Status DC Sodium Chloride 1,000 ml @ 1,000 mls/hr 1X ONCE IV ; Start 11/18/18 at 11:30; Stop 11/18/18 at 12:29; Status Cancel Ceftriaxone Sodium (Rocephin) 1 gm 1X ONCE IVP Last administered on 11/18/18at 11:48; Start 11/18/18 at 11:30; Stop 11/18/18 at 11:33; Status DC Vancomycin HCl 250 ml @ 250 mls/hr 1X ONCE IV Last administered on 11/18/18at 11:53; Start 11/18/18 at 11:30; Stop 11/18/18 at 12:29; Status DC Sodium Chloride 1,000 ml @ 150 mls/hr Q6H40M IV ; Start 11/18/18 at 12:00; Stop 11/18/18 at 15:15; Status DC Divalproex Sodium (Depakote Er) 500 mg QHS PO Last administered on 11/19/18at 21:05; Start 11/18/18 at 21:00; Stop 11/21/18 at 23:25; Status DC Trazodone HCl (Desyrel) 100 mg QHS PO Last administered on 11/25/18at 20:55; Start 11/18/18 at 21:00 Olanzapine (ZyPREXA) 20 mg QHS PO Last administered on 11/25/18at 20:55; Start 11/18/18 at 21:00 Non-Formulary Medication (Trazodone Hcl ) 1 tab QHS PO ; Start 11/18/18 at 21:00; Status UNV Olanzapine (ZyPREXA IM) 10 mg PRN BID PRN IM SCHIZOPHRENIA Last administered on 11/18/18at 13:40; Start 11/18/18 at 13:30 Sodium Chloride 2,000 ml @ 0 mls/hr 1X ONCE IV ; Start 11/18/18 at 13:45; Stop 11/18/18 at 13:45; Status DC Sodium Chloride 1,000 ml @ 0 mls/hr Q1H IV Last administered on 11/18/18at 15: 00; Start 11/18/18 at 14:00; Stop 11/18/18 at 15:01; Status DC Dextrose/Sodium Chloride 1,000 ml @ 250 mls/hr 1X ONCE IV Last administered on 11/18/18at 14:08; Start 11/18/18 at 14:15; Stop 11/18/18 at 19:28; Status DC Fentanyl Citrate 30 ml @ 0 mls/hr CONT PRN IV SEE PROTOCOL; Start 11/18/18 at 14:15; Status UNV Chlorhexidine Gluconate (Peridex) 15 ml BID MM ; Start 11/18/18 at 21:00; Status UNV Midazolam HCl 100 ml @ 0 mls/hr CONT PRN IV SEE PROTOCOL; Start 11/18/18 at 14:15; Status UNV Fentanyl Citrate 30 ml @ 0 mls/hr CONT PRN IV SEE PROTOCOL; Start 11/18/18 at 14:30; Status UNV Midazolam HCl 100 ml @ 0 mls/hr CONT PRN IV SEE PROTOCOL; Start 11/18/18 at 14:30; Status UNV Potassium Chloride/Water 100 ml @ 100 mls/hr Q1H IV Last administered on 11/18/18at 18:33; Start 11/18/18 at 15:00; Stop 11/18/18 at 18:59; Status DC Potassium Phosphate 20 mmol/ Sodium Chloride 256.6667 ml @ 128.... Q2H IV Last administered on 11/18/18at 17:28; Start 11/18/18 at 15:00; Stop 11/18/18 at 18:59; Status DC Potassium Phosphate 13.6 mmol/Dextrose 104.5333 ml @ 52.267 m... Q2H IV ; Start 11/18/18 at 15:15; Stop 11/18/18 at 19:14; Status UNV Ziprasidone (Geodon Im) 20 mg 1X ONCE IM ; Start 11/18/18 at 16:15; Stop 11/18/18 at 16:16; Status DC Ceftriaxone Sodium (Rocephin) 1 gm Q24H IVP Last administered on 11/25/18at 12:14; Start 11/19/18 at 12:00 Dextrose/Sodium Chloride 1,000 ml @ 250 mls/hr 1X ONCE IV Last administered on 11/18/18at 17:54; Start 11/18/18 at 17:45; Stop 11/18/18 at 19:28; Status DC Insulin Glargine (Lantus) 30 units QHS SQ Last administered on 11/25/18at 21:11; Start 11/18/18 at 21:00 Insulin Human Lispro (HumaLOG) 10 units TIDWMEALS SQ Last administered on 11/25/18at 12:22; Start 11/19/18 at 08:00 Insulin Human Lispro (HumaLOG) 5 units Q6HRS SQ ; Start 11/19/18 at 00:00; Stop 11/19/18 at 16:31; Status DC Fentanyl Citrate (Fentanyl 2ml Vial) 25 mcg PRN Q3HRS PRN IV PAIN Last administered on 11/21/18at 10:37; Start 11/18/18 at 19:30 Sodium Chloride 1,000 ml @ 125 mls/hr Q8H IV Last administered on 11/19/18at 11:27; Start 11/18/18 at 19:30; Stop 11/19/18 at 13:59; Status DC Dextrose (Dextrose 50%-Water Syringe) 12.5 gm PRN Q15MIN PRN IV SEE COMMENTS Last administered on 11/19/18at 11:49; Start 11/18/18 at 19:45; Stop 11/20/18 at 18:40; Status DC Amino Acids/ Glycerin/ Electrolytes 1,000 ml @ 75 mls/hr [id number] IV Last administered on 11/21/18at 02:34; Start 11/19/18 at 10:30; Stop 11/21/18 at 13:15; Status DC Insulin Human Lispro (HumaLOG) 6 units 1X ONCE SQ Last administered on 11/20/18at 09:53; Start 11/20/18 at 10:00; Stop 11/20/18 at 10:01; Status DC Insulin Human Regular 150 unit/ Sodium Chloride 151.5 ml @ 0 mls/hr CONT PRN IV SEE I/O RECORD Last administered on 11/20/18at 10:39; Start 11/20/18 at 10:30; Stop 11/20/18 at 16:56; Status DC Sodium Chloride 1,000 ml @ 1,000 mls/hr Q1H IV Last administered on 11/20/18at 10:36; Start 11/20/18 at 10:23; Stop 11/20/18 at 11:22; Status DC Sodium Chloride 1,000 ml @ 250 mls/hr Q4H IV Last administered on 11/20/18at 11:29; Start 11/20/18 at 10:26; Stop 11/20/18 at 18:40; Status DC Sodium Chloride 1,000 ml @ 250 mls/hr Q4H IV ; Start 11/20/18 at 10:26; Stop 11/20/18 at 18:40; Status DC Dextrose/Sodium Chloride 1,000 ml @ 250 mls/hr Q4H IV Last administered on 11/20/18at 13:33; Start 11/20/18 at 10:26; Stop 11/20/18 at 18:40; Status DC Insulin Human Regular 150 unit/ Sodium Chloride 151.5 ml @ 0 mls/hr CONT PRN PRN IV PER PROTOCOL; Start 11/20/18 at 10:30; Status UNV Potassium Chloride/Water 100 ml @ 100 mls/hr PRN Q1HR PRN IV SEE COMMENTS; Start 11/20/18 at 10:30; Stop 11/20/18 at 18:40; Status DC Potassium Chloride/Water 100 ml @ 100 mls/hr PRN Q1HR PRN IV SEE COMMENTS; Start 11/20/18 at 10:30; Stop 11/20/18 at 18:40; Status DC Lactobacillus Rhamnosus (Culturelle) 1 cap BID PO Last administered on 11/26/18at 08:20; Start 11/20/18 at 21:00 Insulin Human Lispro (HumaLOG) 0-7 UNITS TIDWMEALS SQ Last administered on 11/24/18at 08:55; Start 11/20/18 at 17:00; Stop 11/24/18 at 13:42; Status DC Dextrose (Dextrose 50%-Water Syringe) 12.5 gm PRN Q15MIN PRN IV SEE COMMENTS Last administered on 11/24/18at 11:57; Start 11/20/18 at 17:00; Stop 11/24/18 at 14:44; Status DC Potassium Chloride (Klor-Con) 40 meq 1X ONCE PO ; Start 11/20/18 at 17:30; Stop 11/20/18 at 17:31; Status UNV Potassium Chloride (Klor-Con) 40 meq Q2H PO ; Start 11/20/18 at 17:30; Stop 11/20/18 at 19:31; Status UNV Potassium Chloride (Klor-Con) 40 meq Q2H PO ; Start 11/20/18 at 17:30; Stop 11/20/18 at 21:31; Status UNV Magnesium Sulfate/ Dextrose 100 ml @ 50 mls/hr PRN DAILY PRN IV SEE COMMENTS; Start 11/20/18 at 17:27; Stop 11/22/18 at 14:19; Status DC Potassium Phos/ Sodium Phos (Phos-Nak) 1 pkt PRN BID PRN PO SEE COMMENTS; Start 11/20/18 at 21:00 Sodium Phosphate 40 mmol/Dextrose 263.3333 ml @ 62.5 mls/hr 1X ONCE IV ; Start 11/20/18 at 17:30; Stop 11/20/18 at 21:42; Status UNV Potassium Phosphate 15 mmol/ Sodium Chloride 255 ml @ 62.5 mls/hr 1X ONCE IV Last administered on 11/20/18at 18:03; Start 11/20/18 at 18:00; Stop 11/20/18 at 22:04; Status DC Valproic Acid (Depakene) 250 mg BID NG Last administered on 11/26/18at 08:20; Start 11/22/18 at 00:00 Potassium Chloride (KCl Oral Soln) 40 meq 1X ONCE NG Last administered on 11/22/18at 05:50; Start 11/22/18 at 06:00; Stop 11/22/18 at 06:01; Status DC Potassium Chloride/Water 100 ml @ 100 mls/hr Q1H IV Last administered on 11/22/18at 19:37; Start 11/22/18 at 15:00; Stop 11/22/18 at 18:59; Status DC Magnesium Sulfate 50 ml @ 25 mls/hr PRN DAILY PRN IV MAG < 1.7; Start 11/22/18 at 14:15; Stop 11/25/18 at 09:01; Status DC Sodium Phosphate 15 mmol/Dextrose 255 ml @ 125 mls/hr PRN 1X PRN IV SEE COMM ENTS; Start 11/22/18 at 14:15 Sodium Phosphate 15 mmol/Sodium Chloride 255 ml @ 125 mls/hr PRN 1X PRN IV SEE COMMENTS; Start 11/22/18 at 14:15 Potassium Chloride/Water 100 ml @ 100 mls/hr PRN Q1HR PRN IV SEE COMMENTS; Start 11/22/18 at 14:15 Insulin Human Lispro (HumaLOG) 0-5 UNITS TIDWMEALS SQ Last administered on 11/25/18at 12:21; Start 11/24/18 at 17:00 Dextrose (Dextrose 50%-Water Syringe) 12.5 gm PRN Q15MIN PRN IV SEE COMMENTS Last administered on 11/24/18at 20:37; Start 11/24/18 at 13:45 Insulin Glargine (Lantus) 12 units 1X ONCE SQ Last administered on 11/24/18at 21:43; Start 11/24/18 at 21:30; Stop 11/24/18 at 21:31; Status DC Active Scripts Active Reported Divalproex Sodium Er (Divalproex Sodium) 500 Mg Tab.er.24h 1 Tab PO QHS Trazodone Hcl 100 Mg Tablet 1 Tab PO QHS Trazodone Hcl 50 Mg Tablet 1 Tab PO QHS Olanzapine 20 Mg Tablet 1 Tab PO QHS Humalog (Insulin Lispro) 100 Unit/1 Ml Cartridge 10 Unit SQ TIDWMEALS Lantus (Insulin Glargine,Hum.rec.anlog) 100 Unit/1 Ml Vial 30 Unit SQ HS Vitals/I & O Vital Sign - Last 24 Hours 11/25/18 11/25/18 11/25/18 11/25/18 11:29 12:45 13:30 15:00 Temp 98.4 98.7 98.4 98.7 Pulse 106 105 103 Resp 18 20 B/P (MAP) 88/54 (65) 125/67 (86) 114/56 (75) 96/65 (75) Pulse Ox 96 96 O2 Delivery Room Air Room Air Room Air 11/25/18 11/25/18 11/25/18 11/26/18 18:59 20:00 23:00 03:00 Temp 97.5 97.9 98.1 97.5 97.9 98.1 Pulse 20 18 109 Resp 52 18 18 B/P (MAP) 99/55 (70) 134/91 (105) 124/78 (93) Pulse Ox 95 97 97 O2 Delivery Room Air Room Air Room Air Room Air 11/26/18 11/26/18 11/26/18 07:00 07:05 08:12 Temp 98.8 98.8 Pulse 80 Resp 18 B/P (MAP) 86/59 (68) 104/48 (66) Pulse Ox 95 O2 Delivery Room Air Room Air Intake and Output 11/25/18 11/25/18 11/26/18 14:59 22:59 06:59 Intake Total 100 ml 834 ml 505 ml Output Total 850 ml 600 ml Balance 100 ml -16 ml -95 ml Nutrition Consultation Dietary Evaluation: Recommendations by RD: Increase Calorie Intake Comments: REC TF via [facility] per following: Glucerna 1.2@20 ml/hr, increase 10 ml q8 hrs as tolerated to goal rate 45 ml/hr w/100 ml water flushes q4 hrs Can stop PPN once TF started and pt is tolerating 11/23/2018-Glucerna 1.2 @ goal rate 45 ml/hr w/100 ml water flushes q4 hrs Expected Outcomes/Goals: to meet > 75% est nutr needs - not met, new goal established New goal 11/21: TF via [facility] to meet >75% est needs Malnutrition Findings: Food and Nutrition Intake (Sev: <50% est energy req 5days Body Fat Depletion (Non Severe: Mild Depletion Weight Status: Underweight MICHELLE RAYA MD November 26, 2018 08:52
--- NOTE | 2018-11-26 10:38 | NUR ---
SW following for discharge planning. Discussed with RN, pt still having tube feedings through the [facility]. SW awaiting confirmation from [facility] if they take pt's insurance. [facility] cannot do [facility]. SW to meet with pt to determine where pt would like to go.
[2018-11-26] MEDS: cefTRIAXone IV Push 1 GM VIAL. IVP SCH (12:26)
--- NOTE | 2018-11-26 15:06 | NUR ---
GARETH met with pt and pt's to discuss discharge planning. would like referral sent to [facility]. If pt's insurance doesn't approve he would like the referral sent to [place] for SNU. GARETH faxed referral to [facility]. Will continue to follow.
[2018-11-26] MEDS ORDERED: INSULIN GLARGINE 300 UNITS/3 ML INSULN.PEN. SQ SCH (21:00)
[2018-11-26] MEDS: MIRTAZAPINE 15 MG TABLET PO SCH (21:42)
[2018-11-26] MEDS: traZODone 100 MG TABLET. PO SCH (21:42)
[2018-11-26] MEDS: OLANZapine 5 MG TABLET PO SCH (21:42)
[2018-11-26] MEDS ORDERED: INSULIN LISPRO 300 UNITS/3 ML INSULN.PEN. SQ ONE (22:00)
[2018-11-27 03:00] VITALS: BP 126/58
[2018-11-27 07:00] VITALS: BP 132/61
[2018-11-27] MEDS: INSULIN LISPRO 300 UNITS/3 ML INSULN.PEN. SQ SCH ×6 (08:00→17:44)
--- NOTE | 2018-11-27 08:23 | PDOC ---
PROGRESS NOTES Chief Complaint Chief Complaint DKA Severe metabolic encephalopathy Bipolar Severe sepsis Hypernatremia Acute renal failure Tachycardia History of Present Illness History of Present Illness Ms Golden is a 63yo F w/ PMHx Lewy Body Dementia, BP2 disorder, DM, HTN who was recovering from right lower leg fracture surgery at [facility] after surgery at [facility] 1 week ago when she was found very confused today, not her normal baseline dementia according to her , bedside and was brought to ED. Found with DKA, glucose greater than 800, lactate elevated, sodium 150, cr elevated 2.5. Leukocytosis 25K. 11/24 SLEEPING most of day, awake at night d/w son in room 11/25 GLUCOSE LABILE adjusting insulin, needs to chk bp both arms Hypoglycemic past 3 nights, and did not sleep well. She is minimally interactive today, sleeping is present. Tolerating TF well. I discussed the case with him and the nurse. He wishes to get her back to baseline, not currently interested in palliative care 25 min pt exam, chart review, > 50% of time spent with exam, chart review, pt care coordination Placement is important. Given her Lewy Body disease and need for tube feeds and recovery from RLE fracture SNF may not be appropriate, but an LTAC discharge may be the most appropriate course of action. Needs better glycemic control prior to discharge. Ready for LTAC now, but won't be ready for SNF until more stable, it is uncertain how long this will take Vitals Vitals Vital Signs Date Time Temp Pulse Resp B/P (MAP) Pulse Ox O2 Delivery O2 Flow Rate FiO2 11/27/18 07:00 97.9 81 17 132/61 (84) 98 Room Air 97.9 Physical Exam General: Cooperative, mild distress, Other (confused but not agitated today) Heart: Regular rate, Normal S1, Other (TACHY) Lungs: Clear Abdomen: Normal bowel sounds, Soft, No tenderness Extremities: No clubbing, No cyanosis, No edema Skin: No breakdown, No significant lesion Labs LABS Laboratory Tests Test 11/26/18 11:38 11/26/18 16:50 11/26/18 21:08 11/27/18 07:24 Glucose (Fingerstick) 164 mg/dL (70-99) 110 mg/dL (70-99) 333 mg/dL (70-99) 81 mg/dL (70-99) Assessment and Plan Assessmemt and Plan Problems Medical Problems: (1) Acute renal failure Status: Acute (2) Altered mental status Status: Acute (3) DKA (diabetic ketoacidoses) Status: Acute (4) Hypermagnesemia Status: Acute (5) Hypernatremia Status: Acute (6) Hyperphosphatemia Status: Acute (7) Severe sepsis Status: Acute (8) Tachycardia Status: Acute Comment Review of Relevant I have reviewed the following items kenyatta (where applicable) has been applied. Labs Laboratory Tests Test 11/25/18 11:41 11/25/18 17:01 11/25/18 20:53 11/26/18 04:45 Glucose (Fingerstick) 277 mg/dL (70-99) 88 mg/dL (70-99) 314 mg/dL (70-99) Sodium Level 145 mmol/L (136-145) Potassium Level 3.7 mmol/L (3.5-5.1) Chloride Level 104 mmol/L (98-107) Carbon Dioxide Level 32 mmol/L (21-32) Anion Gap 9 (6-14) Blood Urea Nitrogen 20 mg/dL (7-20) Creatinine 0.7 mg/dL (0.6-1.0) Estimated GFR (Cockcroft-Gault) 84.8 BUN/Creatinine Ratio 29 (6-20) Glucose Level 64 mg/dL (70-99) Calcium Level 8.9 mg/dL (8.5-10.1) Total Bilirubin 0.3 mg/dL (0.2-1.0) Aspartate Amino Transf (AST/SGOT) 32 U/L (15-37) Alanine Aminotransferase (ALT/SGPT) 42 U/L (14-59) Alkaline Phosphatase 181 U/L (46-116) Total Protein 5.8 g/dL (6.4-8.2) Albumin 2.5 g/dL (3.4-5.0) Albumin/Globulin Ratio 0.8 (1.0-1.7) Test 11/26/18 06:47 11/26/18 11:38 11/26/18 16:50 11/26/18 21:08 Glucose (Fingerstick) 74 mg/dL (70-99) 164 mg/dL (70-99) 110 mg/dL (70-99) 333 mg/dL (70-99) Test 11/27/18 07:24 Glucose (Fingerstick) 81 mg/dL (70-99) Laboratory Tests Test 11/26/18 11:38 11/26/18 16:50 11/26/18 21:08 11/27/18 07:24 Glucose (Fingerstick) 164 mg/dL (70-99) 110 mg/dL (70-99) 333 mg/dL (70-99) 81 mg/dL (70-99) Microbiology 11/18/18 Blood Culture - Final, Complete NO GROWTH AFTER 5 DAYS Medications Current Medications Sodium Chloride 1,000 ml @ 1,000 mls/hr Q1H IV Last administered on 11/18/18at 10:49; Start 11/18/18 at 10:28; Stop 11/18/18 at 11:27; Status DC Sodium Chloride 1,000 ml @ 1,000 mls/hr 1X ONCE IV Last administered on 11/18/18at 11:15; Start 11/18/18 at 10:30; Stop 11/18/18 at 13:34; Status DC Insulin Human Regular (HumuLIN R VIAL) 10 unit 1X ONCE IV Last administered on 11/18/18at 11:16; Start 11/18/18 at 10:30; Stop 11/18/18 at 10:35; Status DC Insulin Human Regular 150 ml @ 0 mls/hr 1X ONCE IV Last administered on 11/18/18at 11:24; Start 11/18/18 at 10:45; Stop 11/18/18 at 10:46; Status DC Sodium Chloride 1,000 ml @ 1,000 mls/hr 1X ONCE IV ; Start 11/18/18 at 11:30; Stop 11/18/18 at 12:29; Status Cancel Ceftriaxone Sodium (Rocephin) 1 gm 1X ONCE IVP Last administered on 11/18/18at 11:48; Start 11/18/18 at 11:30; Stop 11/18/18 at 11:33; Status DC Vancomycin HCl 250 ml @ 250 mls/hr 1X ONCE IV Last administered on 11/18/18at 11:53; Start 11/18/18 at 11:30; Stop 11/18/18 at 12:29; Status DC Sodium Chloride 1,000 ml @ 150 mls/hr Q6H40M IV ; Start 11/18/18 at 12:00; Stop 11/18/18 at 15:15; Status DC Divalproex Sodium (Depakote Er) 500 mg QHS PO Last administered on 11/19/18at 21:05; Start 11/18/18 at 21:00; Stop 11/21/18 at 23:25; Status DC Trazodone HCl (Desyrel) 100 mg QHS PO Last administered on 11/26/18at 21:42; Start 11/18/18 at 21:00 Olanzapine (ZyPREXA) 20 mg QHS PO Last administered on 11/26/18at 21:42; Start 11/18/18 at 21:00 Non-Formulary Medication (Trazodone Hcl ) 1 tab QHS PO ; Start 11/18/18 at 21:00; Status UNV Olanzapine (ZyPREXA IM) 10 mg PRN BID PRN IM SCHIZOPHRENIA Last administered on 11/18/18at 13:40; Start 11/18/18 at 13:30 Sodium Chloride 2,000 ml @ 0 mls/hr 1X ONCE IV ; Start 11/18/18 at 13:45; Stop 11/18/18 at 13:45; Status DC Sodium Chloride 1,000 ml @ 0 mls/hr Q1H IV Last administered on 11/18/18at 15:00; Start 11/18/18 at 14:00; Stop 11/18/18 at 15:01; Status DC Dextrose/Sodium Chloride 1,000 ml @ 250 mls/hr 1X ONCE IV Last administered on 11/18/18at 14:08; Start 11/18/18 at 14:15; Stop 11/18/18 at 19:28; Status DC Fentanyl Citrate 30 ml @ 0 mls/hr CONT PRN IV SEE PROTOCOL; Start 11/18/18 at 14:15; Status UNV Chlorhexidine Gluconate (Peridex) 15 ml BID MM ; Start 11/18/18 at 21:00; Status UNV Midazolam HCl 100 ml @ 0 mls/hr CONT PRN IV SEE PROTOCOL; Start 11/18/18 at 14:15; Status UNV Fentanyl Citrate 30 ml @ 0 mls/hr CONT PRN IV SEE PROTOCOL; Start 11/18/18 at 14:30; Status UNV Midazolam HCl 100 ml @ 0 mls/hr CONT PRN IV SEE PROTOCOL; Start 11/18/18 at 14:30; Status UNV Potassium Chloride/Water 100 ml @ 100 mls/hr Q1H IV Last administered on 11/18/18at 18:33; Start 11/18/18 at 15:00; Stop 11/18/18 at 18:59; Status DC Potassium Phosphate 20 mmol/ Sodium Chloride 256.6667 ml @ 128.... Q2H IV Last administered on 11/18/18at 17:28; Start 11/18/18 at 15:00; Stop 11/18/18 at 18:59; Status DC Potassium Phosphate 13.6 mmol/Dextrose 104.5333 ml @ 52.267 m... Q2H IV ; Start 11/18/18 at 15:15; Stop 11/18/18 at 19:14; Status UNV Ziprasidone (Geodon Im) 20 mg 1X ONCE IM ; Start 11/18/18 at 16:15; Stop 11/18/18 at 16:16; Status DC Ceftriaxone Sodium (Rocephin) 1 gm Q24H IVP Last administered on 11/26/18at 12:26; Start 11/19/18 at 12:00 Dextrose/Sodium Chloride 1,000 ml @ 250 mls/hr 1X ONCE IV Last administered on 11/18/18at 17:54; Start 11/18/18 at 17:45; Stop 11/18/18 at 19:28; Status DC Insulin Glargine (Lantus) 30 units QHS SQ Last administered on 11/25/18at 21:11; Start 11/18/18 at 21:00; Stop 11/26/18 at 08:52; Status DC Insulin Human Lispro (HumaLOG) 10 units TIDWMEALS SQ Last administered on 11/25/18at 12:22; Start 11/19/18 at 08:00; Stop 11/26/18 at 11:48; Status DC Insulin Human Lispro (HumaLOG) 5 units Q6HRS SQ ; Start 11/19/18 at 00:00; Stop 11/19/18 at 16:31; Status DC Fentanyl Citrate (Fentanyl 2ml Vial) 25 mcg PRN Q3HRS PRN IV PAIN Last administered on 11/21/18at 10:37; Start 11/18/18 at 19:30 Sodium Chloride 1,000 ml @ 125 mls/hr Q8H IV Last administered on 11/19/18at 11:27; Start 11/18/18 at 19:30; Stop 11/19/18 at 13:59; Status DC Dextrose (Dextrose 50%-Water Syringe) 12.5 gm PRN Q15MIN PRN IV SEE COMMENTS Last administered on 11/19/18at 11:49; Start 11/18/18 at 19:45; Stop 11/20/18 at 18:40; Status DC Amino Acids/ Glycerin/ Electrolytes 1,000 ml @ 75 mls/hr [id number] IV Last administered on 11/21/18at 02:34; Start 11/19/18 at 10:30; Stop 11/21/18 at 13:15; Status DC Insulin Human Lispro (HumaLOG) 6 units 1X ONCE SQ Last administered on 11/20/18at 09:53; Start 11/20/18 at 10:00; Stop 11/20/18 at 10:01; Status DC Insulin Human Regular 150 unit/ Sodium Chloride 151.5 ml @ 0 mls/hr CONT PRN IV SEE I/O RECORD Last administered on 11/20/18at 10:39; Start 11/20/18 at 10:30; Stop 11/20/18 at 16:56; Status DC Sodium Chloride 1,000 ml @ 1,000 mls/hr Q1H IV Last administered on 11/20/18at 10:36; Start 11/20/18 at 10:23; Stop 11/20/18 at 11:22; Status DC Sodium Chloride 1,000 ml @ 250 mls/hr Q4H IV Last administered on 11/20/18at 11:29; Start 11/20/18 at 10:26; Stop 11/20/18 at 18:40; Status DC Sodium Chloride 1,000 ml @ 250 mls/hr Q4H IV ; Start 11/20/18 at 10:26; Stop 11/20/18 at 18:40; Status DC Dextrose/Sodium Chloride 1,000 ml @ 250 mls/hr Q4H IV Last administered on 11/20/18at 13:33; Start 11/20/18 at 10:26; Stop 11/20/18 at 18:40; Status DC Insulin Human Regular 150 unit/ Sodium Chloride 151.5 ml @ 0 mls/hr CONT PRN PRN IV PER PROTOCOL; Start 11/20/18 at 10:30; Status UNV Potassium Chloride/Water 100 ml @ 100 mls/hr PRN Q1HR PRN IV SEE COMMENTS; Start 11/20/18 at 10:30; Stop 11/20/18 at 18:40; Status DC Potassium Chloride/Water 100 ml @ 100 mls/hr PRN Q1HR PRN IV SEE COMMENTS; Start 11/20/18 at 10:30; Stop 11/20/18 at 18:40; Status DC Lactobacillus Rhamnosus (Culturelle) 1 cap BID PO Last administered on 11/26/18at 21:42; Start 11/20/18 at 21:00 Insulin Human Lispro (HumaLOG) 0-7 UNITS TIDWMEALS SQ Last administered on 11/24at 08:55; Start 11/20/18 at 17:00; Stop 11/24/18 at 13:42; Status DC Dextrose (Dextrose 50%-Water Syringe) 12.5 gm PRN Q15MIN PRN IV SEE COMMENTS Last administered on 11/24/18at 11:57; Start 11/20/18 at 17:00; Stop 11/24/18 at 14:44; Status DC Potassium Chloride (Klor-Con) 40 meq 1X ONCE PO ; Start 11/20/18 at 17:30; Stop 11/20/18 at 17:31; Status UNV Potassium Chloride (Klor-Con) 40 meq Q2H PO ; Start 11/20/18 at 17:30; Stop 11/20/18 at 19:31; Status UNV Potassium Chloride (Klor-Con) 40 meq Q2H PO ; Start 11/20/18 at 17:30; Stop 11/20/18 at 21:31; Status UNV Magnesium Sulfate/ Dextrose 100 ml @ 50 mls/hr PRN DAILY PRN IV SEE COMMENTS; Start 11/20/18 at 17:27; Stop 11/22/18 at 14:19; Status DC Potassium Phos/ Sodium Phos (Phos-Nak) 1 pkt PRN BID PRN PO SEE COMMENTS; Start 11/20/18 at 21:00 Sodium Phosphate 40 mmol/Dextrose 263.3333 ml @ 62.5 mls/hr 1X ONCE IV ; Start 11/20/18 at 17:30; Stop 11/20/18 at 21:42; Status UNV Potassium Phosphate 15 mmol/ Sodium Chloride 255 ml @ 62.5 mls/hr 1X ONCE IV Last administered on 11/20/18at 18:03; Start 11/20/18 at 18:00; Stop 11/20/18 at 22:04; Status DC Valproic Acid (Depakene) 250 mg BID NG Last administered on 11/26/18at 21:42; Start 11/22/18 at 00:00 Potassium Chloride (KCl Oral Soln) 40 meq 1X ONCE NG Last administered on 11/22/18at 05:50; Start 11/22/18 at 06:00; Stop 11/22/18 at 06:01; Status DC Potassium Chloride/Water 100 ml @ 100 mls/hr Q1H IV Last administered on 11/22/18at 19:37; Start 11/22/18 at 15:00; Stop 11/22/18 at 18:59; Status DC Magnesium Sulfate 50 ml @ 25 mls/hr PRN DAILY PRN IV MAG < 1.7; Start 11/22/18 at 14:15; Stop 11/25/18 at 09:01; Status DC Sodium Phosphate 15 mmol/Dextrose 255 ml @ 125 mls/hr PRN 1X PRN IV SEE COMMENTS; Start 11/22/18 at 14:15 Sodium Phosphate 15 mmol/Sodium Chloride 255 ml @ 125 mls/hr PRN 1X PRN IV SEE COMMENTS; Start 11/22/18 at 14:15 Potassium Chloride/Water 100 ml @ 100 mls/hr PRN Q1HR PRN IV SEE COMMENTS; Start 11/22/18 at 14:15 Insulin Human Lispro (HumaLOG) 0-5 UNITS TIDWMEALS SQ Last administered on 11/26/18at 12:34; Start 11/24/18 at 17:00 Dextrose (Dextrose 50%-Water Syringe) 12.5 gm PRN Q15MIN PRN IV SEE COMMENTS Last administered on 11/24/18at 20:37; Start 11/24/18 at 13:45 Insulin Glargine (Lantus) 12 units 1X ONCE SQ Last administered on 11/24/18at 21:43; Start 11/24/18 at 21:30; Stop 11/24/18 at 21:31; Status DC Insulin Glargine (Lantus) 25 units QHS SQ Last administered on 11/26/18at 21:43; Start 11/26/18 at 21:00 Insulin Human Lispro (HumaLOG) 8 units TIDWMEALS SQ Last administered on 11/26/18at 12:34; Start 11/26/18 at 12:00 Mirtazapine (Remeron) 15 mg QHS PO Last administered on 11/26/18 21:42; Start 11/26/18 at 21:00 Insulin Human Lispro (HumaLOG) 3 units 1X ONCE SQ Last administered on 11/26/18at 21:44; Start 11/26/18 at 22:00; Stop 11/26/18 at 22:01; Status DC Active Scripts Active Reported Divalproex Sodium Er (Divalproex Sodium) 500 Mg Tab.er.24h 1 Tab PO QHS Trazodone Hcl 100 Mg Tablet 1 Tab PO QHS Trazodone Hcl 50 Mg Tablet 1 Tab PO QHS Olanzapine 20 Mg Tablet 1 Tab PO QHS Humalog (Insulin Lispro) 100 Unit/1 Ml Cartridge 10 Unit SQ TIDWMEALS Lantus (Insulin Glargine,Hum.rec.anlog) 100 Unit/1 Ml Vial 30 Unit SQ HS Vitals/I & O Vital Sign - Last 24 Hours 11/26/18 11/26/18 11/26/18 11/26/18 11:00 15:00 19:00 20:00 Temp 97.9 98.2 98.3 97.9 98.2 98.3 Pulse 89 87 77 Resp 18 17 17 B/P (MAP) 113/80 (91) 95/69 (78) 96/76 (83) Pulse Ox 98 97 94 O2 Delivery Room Air Room Air Room Air Room Air 11/26/18 11/27/18 11/27/18 23:00 03:00 07:00 Temp 97.9 98.0 97.9 97.9 98.0 97.9 Pulse 75 95 81 Resp 17 17 17 B/P (MAP) 112/89 (97) 126/58 (80) 132/61 (84) Pulse Ox 96 96 98 O2 Delivery Room Air Room Air Room Air Intake and Output 11/26/18 11/26/18 11/27/18 14:59 22:59 06:59 Intake Total 100 ml 100 ml Output Total 550 ml Balance 100 ml -450 ml Nutrition Consultation Dietary Evaluation: Recommendations by RD: Increase Calorie Intake Comments: REC TF via [facility] per following: Glucerna 1.2@20 ml/hr, increase 10 ml q8 hrs as tolerated to goal rate 45 ml/hr w/100 ml water flushes q4 hrs Can stop PPN once TF started and pt is tolerating 11/23/2018-Glucerna 1.2 @ goal rate 45 ml/hr w/100 ml water flushes q4 hrs Expected Outcomes/Goals: to meet > 75% est nutr needs - not met, new goal established New goal 11/21: TF via [facility] to meet >75% est needs Malnutrition Findings: Food and Nutrition Intake (Sev: <50% est energy req 5days Body Fat Depletion (Non Severe: Mild Depletion Weight Status: Underweight MICHELLE RAYA MD November 27, 2018 08:23
[2018-11-27] MEDS: LACTOBACILLUS RHAMNOSUS GG 1 CAPSULE. PO SCH ×2 (08:50→21:38)
[2018-11-27] MEDS: VALPROIC ACID (AS SODIUM SALT) 250 MG/5 ML SOLUTION. NG SCH ×2 (08:50→21:38)
[2018-11-27 11:00] VITALS: BP 91/56
[2018-11-27] MEDS: DEXTROSE 50% 25 GM / 50ML DISP.SYRIN. IV PRN (11:10)
--- NOTE | 2018-11-27 11:15 | NUR ---
Critical Value: Notified by Ruth ANN of FSBS=34. Pt breathing regularly, sleeping. Pt has been lethargic all morning, although this was reported as baseline. FSBS at breakfast time 81, LOC unchanged from this morning. Administered 12.5G of dextrose per IV at 1118. Sent Myra FLAHERTY page to Dr. Olivares at 1125 to notify of critical blood sugar. Received call back at 1128. No new orders at this time. Addendum: 11/27/18 at 1144 by LEIGHTON HERNANDES RN Blood sugar on recheck 114
[2018-11-27] MEDS: cefTRIAXone IV Push 1 GM VIAL. IVP SCH (12:09)
--- NOTE | 2018-11-27 12:37 | NUR ---
SW following for discharge planning. Discussed with RN, [facility] has accepted pt, pending insurance approval. GARETH received message from Arielle, at [facility], advising they can know accept pt's with [facility]. GARETH will continue to follow.
[2018-11-27 15:00] VITALS: BP 130/67
--- NOTE | 2018-11-27 16:54 | NUR ---
Blood sugar of [address] Olivares, no additional insulin at this time.
[2018-11-27 19:00] VITALS: BP 137/62
[2018-11-27] MEDS ORDERED: INSULIN GLARGINE 300 UNITS/3 ML INSULN.PEN. SQ SCH (21:00)
[2018-11-27] MEDS: traZODone 100 MG TABLET. PO SCH (21:38)
[2018-11-27] MEDS: MIRTAZAPINE 15 MG TABLET PO SCH (21:38)
[2018-11-27] MEDS: OLANZapine 5 MG TABLET PO SCH (21:38)
[2018-11-27 23:00] VITALS: BP 107/55
[2018-11-28 03:00] VITALS: BP 134/117
[2018-11-28 07:00] VITALS: BP 149/75
[2018-11-28] MEDS: INSULIN LISPRO 300 UNITS/3 ML INSULN.PEN. SQ SCH ×4 (08:00→12:51)
--- NOTE | 2018-11-28 08:41 | PDOC ---
PROGRESS NOTES Chief Complaint Chief Complaint DKA Severe metabolic encephalopathy Bipolar Severe sepsis Hypernatremia Acute renal failure Tachycardia History of Present Illness History of Present Illness Ms Golden is a 63yo F w/ PMHx Lewy Body Dementia, BP2 disorder, DM, HTN who was recovering from right lower leg fracture surgery at [facility] after surgery at [facility] 1 week ago when she was found very confused today, not her normal baseline dementia according to her , bedside and was brought to ED. Found with DKA, glucose greater than 800, lactate elevated, sodium 150, cr elevated 2.5. Leukocytosis 25K. 11/24 SLEEPING most of day, awake at night d/w son in room 11/25 GLUCOSE LABILE adjusting insulin, needs to chk bp both arms 11/27: Hypoglycemic past 3 nights, and did not sleep well. She is minimally inte ractive today, sleeping Yesterday had glucose up to 330 after a low glucose, has stabilized since. is present. Tolerating TF well. Got up with PT yesterday and had a bath in bed this morning, tired after this. notes she was talking yesterday afternoon around 3pm, but had already been evaluated by SENIOR MATERIALS ANALYST while sleeping. I discussed the case with him and the nurse. He wishes to get her back to baseline, not currently interested in palliative care, though he feels long term acute care registered nurse that is the right answer 25 min pt exam, chart review, > 50% of time spent with exam, chart review, pt care coordination Placement is important. Given her Lewy Body disease and need for tube feeds and recovery from RLE fracture SNF may not be appropriate, but an LTAC discharge may be the most appropriate course of action. Needs better glycemic control prior to discharge. Ready for LTAC now, but won't be ready for SNF until more stable, it is uncertain how long this will take Vitals Vitals Vital Signs Date Time Temp Pulse Resp B/P (MAP) Pulse Ox O2 Delivery O2 Flow Rate FiO2 11/28/18 07:00 97.9 98 18 149/75 (99) 95 Room Air 97.9 Physical Exam General: Cooperative, mild distress, Other (confused but not agitated today) Heart: Regular rate, Normal S1, Other (TACHY) Lungs: Clear Abdomen: Normal bowel sounds, Soft, No tenderness Extremities: No clubbing, No cyanosis, No edema Skin: No breakdown, No significant lesion Labs LABS Laboratory Tests Test 11/27/18 11:06 11/27/18 11:33 11/27/18 16:35 11/27/18 20:38 Glucose (Fingerstick) 34 mg/dL (70-99) 114 mg/dL (70-99) 377 mg/dL (70-99) 224 mg/dL (70-99) Test 11/28/18 02:29 11/28/18 07:20 Glucose (Fingerstick) 195 mg/dL (70-99) 143 mg/dL (70-99) Assessment and Plan Assessmemt and Plan Problems Medical Problems: (1) Acute renal failure Status: Acute (2) Altered mental status Status: Acute (3) DKA (diabetic ketoacidoses) Status: Acute (4) Hypermagnesemia Status: Acute (5) Hypernatremia Status: Acute (6) Hyperphosphatemia Status: Acute (7) Severe sepsis Status: Acute (8) Tachycardia Status: Acute Comment Review of Relevant I have reviewed the following items kenyatta (where applicable) has been applied. Labs Laboratory Tests Test 11/26/18 11:38 11/26/18 16:50 11/26/18 21:08 11/27/18 07:24 Glucose (Fingerstick) 164 mg/dL (70-99) 110 mg/dL (70-99) 333 mg/dL (70-99) 81 mg/dL (70-99) Test 11/27/18 11:06 11/27/18 11:33 11/27/18 16:35 11/27/18 20:38 Glucose (Fingerstick) 34 mg/dL (70-99) 114 mg/dL (70-99) 377 mg/dL (70-99) 224 mg/dL (70-99) Test 11/28/18 02:29 11/28/18 07:20 Glucose (Fingerstick) 195 mg/dL (70-99) 143 mg/dL (70-99) Laboratory Tests Test 11/27/18 11:06 11/27/18 11:33 11/27/18 16:35 11/27/18 20:38 Glucose (Fingerstick) 34 mg/dL (70-99) 114 mg/dL (70-99) 377 mg/dL (70-99) 224 mg/dL (70-99) Test 11/28/18 02:29 11/28/18 07:20 Glucose (Fingerstick) 195 mg/dL (70-99) 143 mg/dL (70-99) Microbiology 11/18/18 Blood Culture - Final, Complete NO GROWTH AFTER 5 DAYS Medications Current Medications Sodium Chloride 1,000 ml @ 1,000 mls/hr Q1H IV Last administered on 11/18/18 10:49; Start 11/18/18 at 10:28; Stop 11/18/18 at 11:27; Status DC Sodium Chloride 1,000 ml @ 1,000 mls/hr 1X ONCE IV Last administered on 11/18/18at 11:15; Start 11/18/18 at 10:30; Stop 11/18/18 at 13:34; Status DC Insulin Human Regular (HumuLIN R VIAL) 10 unit 1X ONCE IV Last administered on 11/18/18at 11:16; Start 11/18/18 at 10:30; Stop 11/18/18 at 10:35; Status DC Insulin Human Regular 150 ml @ 0 mls/hr 1X ONCE IV Last administered on 11/18/18at 11:24; Start 11/18/18 at 10:45; Stop 11/18/18 at 10:46; Status DC Sodium Chloride 1,000 ml @ 1,000 mls/hr 1X ONCE IV ; Start 11/18/18 at 11:30; Stop 11/18/18 at 12:29; Status Cancel Ceftriaxone Sodium (Rocephin) 1 gm 1X ONCE IVP Last administered on 11/18/18at 11:48; Start 11/18/18 at 11:30; Stop 11/18/18 at 11:33; Status DC Vancomycin HCl 250 ml @ 250 mls/hr 1X ONCE IV Last administered on 11/18/18at 11:53; Start 11/18/18 at 11:30; Stop 11/18/18 at 12:29; Status DC Sodium Chloride 1,000 ml @ 150 mls/hr Q6H40M IV ; Start 11/18/18 at 12:00; Stop 11/18/18 at 15:15; Status DC Divalproex Sodium (Depakote Er) 500 mg QHS PO Last administered on 11/19/18at 21:05; Start 11/18/18 at 21:00; Stop 11/21/18 at 23:25; Status DC Trazodone HCl (Desyrel) 100 mg QHS PO Last administered on 11/27/18at 21:38; Start 11/18/18 at 21:00 Olanzapine (ZyPREXA) 20 mg QHS PO Last administered on 11/27/18at 21:38; Start 11/18/18 at 21:00 Non-Formulary Medication (Trazodone Hcl ) 1 tab QHS PO ; Start 11/18/18 at 21:00; Status UNV Olanzapine (ZyPREXA IM) 10 mg PRN BID PRN IM SCHIZOPHRENIA Last administered on 11/18/18at 13:40; Start 11/18/18 at 13:30 Sodium Chloride 2,000 ml @ 0 mls/hr 1X ONCE IV ; Start 11/18/18 at 13:45; Stop 11/18/18 at 13:45; Status DC Sodium Chloride 1,000 ml @ 0 mls/hr Q1H IV Last administered on 11/18/18at 15:00; Start 11/18/18 at 14:00; Stop 11/18/18 at 15:01; Status DC Dextrose/Sodium Chloride 1,000 ml @ 250 mls/hr 1X ONCE IV Last administered on 11/18/18at 14:08; Start 11/18/18 at 14:15; Stop 11/18/18 at 19:28; Status DC Fentanyl Citrate 30 ml @ 0 mls/hr CONT PRN IV SEE PROTOCOL; Start 11/18/18 at 14:15; Status UNV Chlorhexidine Gluconate (Peridex) 15 ml BID MM ; Start 11/18/18 at 21:00; Status UNV Midazolam HCl 100 ml @ 0 mls/hr CONT PRN IV SEE PROTOCOL; Start 11/18/18 at 14:15; Status UNV Fentanyl Citrate 30 ml @ 0 mls/hr CONT PRN IV SEE PROTOCOL; Start 11/18/18 at 14:30; Status UNV Midazolam HCl 100 ml @ 0 mls/hr CONT PRN IV SEE PROTOCOL; Start 11/18/18 at 14:30; Status UNV Potassium Chloride/Water 100 ml @ 100 mls/hr Q1H IV Last administered on 11/18/18at 18:33; Start 11/18/18 at 15:00; Stop 11/18/18 at 18:59; Status DC Potassium Phosphate 20 mmol/ Sodium Chloride 256.6667 ml @ 128.... Q2H IV Last administered on 11/18/18at 17:28; Start 11/18/18 at 15:00; Stop 11/18/18 at 18:59; Status DC Potassium Phosphate 13.6 mmol/Dextrose 104.5333 ml @ 52.267 m... Q2H IV ; Start 11/18/18 at 15:15; Stop 11/18/18 at 19:14; Status UNV Ziprasidone (Geodon Im) 20 mg 1X ONCE IM ; Start 11/18/18 at 16:15; Stop 11/18/18 at 16:16; Status DC Ceftriaxone Sodium (Rocephin) 1 gm Q24H IVP Last administered on 11/27/18at 12:09; Start 11/19/18 at 12:00 Dextrose/Sodium Chloride 1,000 ml @ 250 mls/hr 1X ONCE IV Last administered on 11/18/18at 17:54; Start 11/18/18 at 17:45; Stop 11/18/18 at 19:28; Status DC Insulin Glargine (Lantus) 30 units QHS SQ Last administered on 11/25/18at 21:11; Start 11/18/18 at 21:00; Stop 11/26/18 at 08:52; Status DC Insulin Human Lispro (HumaLOG) 10 units TIDWMEALS SQ Last administered on 11/25/18at 12:22; Start 11/19/18 at 08:00; Stop 11/26/18 at 11:48; Status DC Insulin Human Lispro (HumaLOG) 5 units Q6HRS SQ ; Start 11/19/18 at 00:00; Stop 11/19/18 at 16:31; Status DC Fentanyl Citrate (Fentanyl 2ml Vial) 25 mcg PRN Q3HRS PRN IV PAIN Last administered on 11/21/18at 10:37; Start 11/18/18 at 19:30 Sodium Chloride 1,000 ml @ 125 mls/hr Q8H IV Last administered on 11/19/18at 11:27; Start 11/18/18 at 19:30; Stop 11/19/18 at 13:59; Status DC Dextrose (Dextrose 50%-Water Syringe) 12.5 gm PRN Q15MIN PRN IV SEE COMMENTS Last administered on 11/19/18at 11:49; Start 11/18/18 at 19:45; Stop 11/20/18 at 18:40; Status DC Amino Acids/ Glycerin/ Electrolytes 1,000 ml @ 75 mls/hr [id number] IV Last administered on 11/21/18at 02:34; Start 11/19/18 at 10:30; Stop 11/21/18 at 13:15; Status DC Insulin Human Lispro (HumaLOG) 6 units 1X ONCE SQ Last administered on 11/20/18at 09:53; Start 11/20/18 at 10:00; Stop 11/20/18 at 10:01; Status DC Insulin Human Regular 150 unit/ Sodium Chloride 151.5 ml @ 0 mls/hr CONT PRN IV SEE I/O RECORD Last administered on 11/20/18at 10:39; Start 11/20/18 at 10:30; Stop 11/20/18 at 16:56; Status DC Sodium Chloride 1,000 ml @ 1,000 mls/hr Q1H IV Last administered on 11/20/18at 10:36; Start 11/20/18 at 10:23; Stop 11/20/18 at 11:22; Status DC Sodium Chloride 1,000 ml @ 250 mls/hr Q4H IV Last administered on 11/20/18at 11:29; Start 11/20/18 at 10:26; Stop 11/20/18 at 18:40; Status DC Sodium Chloride 1,000 ml @ 250 mls/hr Q4H IV ; Start 11/20/18 at 10:26; Stop 11/20/18 at 18:40; Status DC Dextrose/Sodium Chloride 1,000 ml @ 250 mls/hr Q4H IV Last administered on 11/20/18at 13:33; Start 11/20/18 at 10:26; Stop 11/20/18 at 18:40; Status DC Insulin Human Regular 150 unit/ Sodium Chloride 151.5 ml @ 0 mls/hr CONT PRN PRN IV PER PROTOCOL; Start 11/20/18 at 10:30; Status UNV Potassium Chloride/Water 100 ml @ 100 mls/hr PRN Q1HR PRN IV SEE COMMENTS; Start 11/20/18 at 10:30; Stop 11/20/18 at 18:40; Status DC Potassium Chloride/Water 100 ml @ 100 mls/hr PRN Q1HR PRN IV SEE COMMENTS; Start 11/20/18 at 10:30; Stop 11/20/18 at 18:40; Status DC Lactobacillus Rhamnosus (Culturelle) 1 cap BID PO Last administered on 11/27/18at 21:38; Start 11/20/18 at 21:00 Insulin Human Lispro (HumaLOG) 0-7 UNITS TIDWMEALS SQ Last administered on 11/24/18at 08:55; Start 11/20/18 at 17:00; Stop 11/24/18 at 13:42; Status DC Dextrose (Dextrose 50%-Water Syringe) 12.5 gm PRN Q15MIN PRN IV SEE COMMENTS Last administered on 11/24/18at 11:57; Start 11/20/18 at 17:00; Stop 11/24/18 at 14:44; Status DC Potassium Chloride (Klor-Con) 40 meq 1X ONCE PO ; Start 11/20/18 at 17:30; Stop 11/20/18 at 17:31; Status UNV Potassium Chloride (Klor-Con) 40 meq Q2H PO ; Start 11/20/18 at 17:30; Stop 11/20/18 at 19:31; Status UNV Potassium Chloride (Klor-Con) 40 meq Q2H PO ; Start 11/20/18 at 17:30; Stop 11/20/18 at 21:31; Status UNV Magnesium Sulfate/ Dextrose 100 ml @ 50 mls/hr PRN DAILY PRN IV SEE COMMENTS; Start 11/20/18 at 17:27; Stop 11/22/18 at 14:19; Status DC Potassium Phos/ Sodium Phos (Phos-Nak) 1 pkt PRN BID PRN PO SEE COMMENTS; Start 11/20/18 at 21:00 Sodium Phosphate 40 mmol/Dextrose 263.3333 ml @ 62.5 mls/hr 1X ONCE IV ; Start 11/20/18 at 17:30; Stop 11/20/18 at 21:42; Status UNV Potassium Phosphate 15 mmol/ Sodium Chloride 255 ml @ 62.5 mls/hr 1X ONCE IV Last administered on 11/20/18at 18:03; Start 11/20/18 at 18:00; Stop 11/20/18 at 22:04; Status DC Valproic Acid (Depakene) 250 mg BID NG Last administered on 11/27/18at 21:38; Start 11/22/18 at 00:00 Potassium Chloride (KCl Oral Soln) 40 meq 1X ONCE NG Last administered on 11/22/18at 05:50; Start 11/22/18 at 06:00; Stop 11/22/18 at 06:01; Status DC Potassium Chloride/Water 100 ml @ 100 mls/hr Q1H IV Last administered on 11/22/18at 19:37; Start 11/22/18 at 15:00; Stop 11/22/18 at 18:59; Status DC Magnesium Sulfate 50 ml @ 25 mls/hr PRN DAILY PRN IV MAG < 1.7; Start 11/22/18 at 14:15; Stop 11/25/18 at 09:01; Status DC Sodium Phosphate 15 mmol/Dextrose 255 ml @ 125 mls/hr PRN 1X PRN IV SEE COMMENTS; Start 11/22/18 at 14:15 Sodium Phosphate 15 mmol/Sodium Chloride 255 ml @ 125 mls/hr PRN 1X PRN IV SEE COMMENTS; Start 11/22/18 at 14:15 Potassium Chloride/Water 100 ml @ 100 mls/hr PRN Q1HR PRN IV SEE COMMENTS; Start 11/22/18 at 14:15 Insulin Human Lispro (HumaLOG) 0-5 UNITS TIDWMEALS SQ Last administered on 11/27/18at 17:44; Start 11/24/18 at 17:00 Dextrose (Dextrose 50%-Water Syringe) 12.5 gm PRN Q15MIN PRN IV SEE COMMENTS Last administered on 11/27/18at 11:10; Start 11/24/18 at 13:45 Insulin Glargine (Lantus) 12 units 1X ONCE SQ Last administered on 11/24/18at 21:43; Start 11/24/18 at 21:30; Stop 11/24/18 at 21:31; Status DC Insulin Glargine (Lantus) 25 units QHS SQ Last administered on 11/26/18at 21:43; Start 11/26/18 at 21:00; Stop 11/27/18 at 13:29; Status DC Insulin Human Lispro (HumaLOG) 8 units TIDWMEALS SQ Last administered on 11/27/18at 09:00; Start 11/26/18 at 12:00; Stop 11/27/18 at 13:29; Status DC Mirtazapine (Remeron) 15 mg QHS PO Last administered on 11/27/18 21:38; Start 11/26/18 at 21:00 Insulin Human Lispro (HumaLOG) 3 units 1X ONCE SQ Last administered on 11/26/18at 21:44; Start 11/26/18 at 22:00; Stop 11/26/18 at 22:01; Status DC Insulin Glargine (Lantus) 20 units QHS SQ Last administered on 11/27/18at 21:42; Start 11/27/18 at 21:00 Insulin Human Lispro (HumaLOG) 3 units TIDWMEALS SQ Last administered on 11/27/18at 17:42; Start 11/27/18 at 17:00 Active Scripts Active Reported Divalproex Sodium Er (Divalproex Sodium) 500 Mg Tab.er.24h 1 Tab PO QHS Trazodone Hcl 100 Mg Tablet 1 Tab PO QHS Trazodone Hcl 50 Mg Tablet 1 Tab PO QHS Olanzapine 20 Mg Tablet 1 Tab PO QHS Humalog (Insulin Lispro) 100 Unit/1 Ml Cartridge 10 Unit SQ TIDWMEALS Lantus (Insulin Glargine,Hum.rec.anlog) 100 Unit/1 Ml Vial 30 Unit SQ HS Vitals/I & O Vital Sign - Last 24 Hours 11/27/18 11/27/18 11/27/18 11/27/18 11:00 15:00 19:00 19:30 Temp 98.0 98.5 97.9 98.0 98.5 97.9 Pulse 65 108 111 Resp 17 17 18 B/P (MAP) 91/56 (68) 130/67 (88) 137/62 (87) Pulse Ox 94 96 93 O2 Delivery Room Air Room Air Room Air Room Air 11/27/18 11/28/18 11/28/18 23:00 03:00 07:00 Temp 97.7 97.7 97.9 97.7 97.7 97.9 Pulse 103 94 98 Resp 18 18 18 B/P (MAP) 107/55 (72) 134/117 (123) 149/75 (99) Pulse Ox 93 97 95 O2 Delivery Room Air Room Air Room Air Intake and Output 11/27/18 11/27/18 11/28/18 14:59 22:59 06:59 Intake Total 100 ml 100 ml Output Total 650 ml Balance 100 ml -550 ml Nutrition Consultation Dietary Evaluation: Recommendations by RD: Increase Calorie Intake Comments: REC continue TF via dobhoff per following: Glucerna 1.2@20 ml/hr, increase 10 ml q8 hrs as tolerated to goal rate 45 ml/hr w/100 ml water flushes q4 hrs PPN d/c 11/21/18 Expected Outcomes/Goals: to meet > 75% est nutr needs - not met, new goal established New goal 11/21: TF via dobhoff to meet >75% est needs - met, ongoing Malnutrition Findings: Food and Nutrition Intake (Sev: <50% est energy req 5days Body Fat Depletion (Non Severe: Mild Depletion Weight Status: Underweight MICHELLE RAYA MD November 28, 2018 08:41
[2018-11-28] MEDS: LACTOBACILLUS RHAMNOSUS GG 1 CAPSULE. PO SCH (09:00)
[2018-11-28] MEDS: VALPROIC ACID (AS SODIUM SALT) 250 MG/5 ML SOLUTION. NG SCH (09:00)
--- NOTE | 2018-11-28 09:54 | NUR ---
SW following for discharge planning. Discussed with RN, [facility] has accepted pt, pending insurance auth. GARETH will continue to follow.
[2018-11-28 11:00] VITALS: BP 96/51
--- NOTE | 2018-11-28 12:25 | PDOC3 ---
Discharge Summary Visit Information Date of Admission: November 18, 2018 Date of Discharge: November 28, 2018 Admitting Diagnosis: ARF, DKA, Encephalopathy Final Diagnosis Problems Medical Problems: (1) Acute renal failure Status: Acute (2) Altered mental status Status: Acute (3) DKA (diabetic ketoacidoses) Status: Acute (4) Hypermagnesemia Status: Acute (5) Hypernatremia Status: Acute (6) Hyperphosphatemia Status: Acute (7) Severe sepsis Status: Acute (8) Tachycardia Status: Acute Brief Hospital Course Allergies Allergies Coded Allergies Type Severity Reaction Last Updated Verified No Known Drug Allergies 07/26/13 No Vital Signs Vital Signs Date Time Temp Pulse Resp B/P (MAP) Pulse Ox O2 Delivery O2 Flow Rate FiO2 11/28/18 07:00 97.9 98 18 149/75 (99) 95 Room Air 97.9 Lab Results Laboratory Tests Test 11/26/18 16:50 11/26/18 21:08 11/27/18 07:24 11/27/18 11:06 Glucose (Fingerstick) 110 mg/dL (70-99) 333 mg/dL (70-99) 81 mg/dL (70-99) 34 mg/dL (70-99) Test 11/27/18 11:33 11/27/18 16:35 11/27/18 20:38 11/28/18 02:29 Glucose (Fingerstick) 114 mg/dL (70-99) 377 mg/dL (70-99) 224 mg/dL (70-99) 195 mg/dL (70-99) Test 11/28/18 07:20 11/28/18 11:39 Glucose (Fingerstick) 143 mg/dL (70-99) 244 mg/dL (70-99) Laboratory Tests Test 11/27/18 16:35 11/27/18 20:38 11/28/18 02:29 11/28/18 07:20 Glucose (Fingerstick) 377 mg/dL (70-99) 224 mg/dL (70-99) 195 mg/dL (70-99) 143 mg/dL (70-99) Test 11/28/18 11:39 Glucose (Fingerstick) 244 mg/dL (70-99) Brief Hospital Course Ms Golden is a 63yo F w/ PMHx Lewy Body Dementia, BP2 disorder, DM, HTN who was recovering from right lower leg fracture surgery at [facility] after surgery at [facility] 1 week ago when she was found very confused today, not her normal baseline dementia according to her , bedside and was brought to ED. Found with DKA, glucose greater than 800, lactate elevated, sodium 150, cr elevated 2.5. Leukocytosis 25K. Improved over the course of 8 days, then stabilized, unable to take PO, had NGT placed, continues to fail FOOD SERVICE REPRESENTATIVE evaluations. Seen by nephrology for AUGUST, recovered, was likely 2/2 DKA and vasomotor. 11/24 SLEEPING most of day, awake at night d/w son in room 11/25 GLUCOSE LABILE adjusting insulin, needs to chk bp both arms 11/27: Hypoglycemic past 3 nights, and did not sleep well. She is minimally interactive today, sleeping Yesterday had glucose up to 330 after a low glucose, has stabilized since. is present. Tolerating TF well. Got up with PT yesterday and had a bath in bed this morning, tired after this. notes she was talking yesterday afternoon around 3pm, but had already been evaluated by FOOD SERVICE REPRESENTATIVE while sleeping. I discussed the case with him and the nurse. He wishes to get her back to baseline, not currently interested in palliative care, though he feels masonry instructor that is the right answer 25 min pt exam, chart review, > 50% of time spent with exam, chart review, pt care coordination Placement is important. Given her Lewy Body disease and need for tube feeds and recovery from RLE fracture SNF may not be appropriate, but an LTAC discharge may be the most appropriate course of action. Needs better glycemic control prior to discharge. Ready for LTAC now, but won't be ready for SNF until more stable, it is uncertain how long this will take DKA Severe metabolic encephalopathy Bipolar Severe sepsis Hypernatremia Acute renal failure Tachycardia Greater than 30 minutes spent on discharge to LTAC Discharge Information Condition at Discharge: Improved Follow Up: Weeks (2) Disposition/Orders: D/C to Another Facility ([facility]) Scheduled Divalproex Sodium (Divalproex Sodium Er) 500 Mg Tab.er.24h, 1 TAB PO QHS, #60 Ref 1 (Reported) Entered as Reported by: SURINDER MACE on 12/03/14 [id number] Last Action: Continued on 11/18/181326 by MICHELLE RAYA MD Insulin Glargine,Hum.rec.anlog (Lantus) 100 Unit/1 Ml Vial, 30 UNIT SQ HS, (Reported) Entered as Reported by: VELIA DOUGLAS on 07/26/132218 Insulin Lispro (Humalog) 100 Unit/1 Ml Cartridge, 10 UNIT SQ TIDWMEALS, (Reported) Entered as Reported by: VELIA DOUGLAS on 07/26/132218 Olanzapine (Olanzapine) 20 Mg Tablet, 1 TAB PO QHS, #30 Ref 1 (Reported) Entered as Reported by: SURINDER MACE on 12/03/142238 Last Action: Converted on 11/18/181326 by MICHELLE RAYA MD Trazodone Hcl (Trazodone Hcl) 50 Mg Tablet, 1 TAB PO QHS, #30 Ref 1 (Reported) Entered as Reported by: SURINDER MACE on 12/03/142238 Last Action: Converted on 11/18/181326 by MICHELLE RAYA MD Trazodone Hcl (Trazodone Hcl) 100 Mg Tablet, 1 TAB PO QHS, #30 Ref 1 (Reported) Entered as Reported by: SURINDER MACE on 12/03/142238 Last Action: Continued on 11/18/181326 by MD DOROTA CONTEH CHRISTOPHER S MD November 28, 2018 12:25
[2018-11-28] MEDS: cefTRIAXone IV Push 1 GM VIAL. IVP SCH (12:54)
--- NOTE | 2018-11-28 13:36 | NUR ---
GARETH following. Insurance approved pt to go to [facility] today. [facility] Department to transport pt at 1400. Pt choice and rights letter signed and placed on chart. RN notified. No further SW needs. Addendum: 11/28/18 at [address] Olivares advised GAERTH pt's did not want to sign up with hospice due to worrying about pt not being able to be with the feeding tube whilst on hospice. Lacy coon was visiting GARETH office regarding another case, GARETH questioned whether feeding tubes are possible with hospice, Lacy advised this is possible and they even cover the cost of the supplement. GARETH gave card and brochure to pt's if he had any other questions regarding hospice, he can reach out.
--- NOTE | 2018-11-28 13:56 | SNU/HH DC ---
DISCHARGE ORDERS DISCHARGE INFORMATION: DISCHARGE DATE: November 28, 2018 FINAL DIAGNOSIS Problems Medical Problems: (1) Acute renal failure Status: Acute (2) Altered mental status Status: Acute (3) DKA (diabetic ketoacidoses) Status: Acute (4) Hypermagnesemia Status: Acute (5) Hypernatremia Status: Acute (6) Hyperphosphatemia Status: Acute (7) Severe sepsis Status: Acute (8) Tachycardia Status: Acute CONDITION ON DISCHARGE: Stable CODE STATUS: Code Status: DNR/DNI LTAC: ADMIT TO LTAC: Yes POST DISCHARGE ORDERS: ACTIVITY ORDERS: No restrictions WEIGHT BEARING STATUS: No restrictions DIET AFTER DISCHARGE: NGT - glucerna 45cc/hr CHECKS AFTER DISCHARGE: CHECKS AFTER DISCHARGE: Check blood sugar, ac/hs TREATMENT/EQUIPMENT ORDERS: INFUSION EQUIPMENT NEEDED: Feeding Tube Physical Therapy For: Evalulation/Treatment Occupational Therapy For: Evaluation/Treatment Speech Language Pathology For: Evaluation/Treatment DISCHARGE MEDICATIONS: Home Meds Reported Medications Divalproex Sodium (DIVALPROEX SODIUM ER) 500 Mg Tab.er.24h, 1 TAB PO QHS, #60 TAB 1 Refill 520/15 Trazodone Hcl (TRAZODONE HCL) 100 Mg Tablet, 1 TAB PO QHS, #30 TAB 1 Refill 5/20/15 Trazodone Hcl (TRAZODONE HCL) 50 Mg Tablet, 1 TAB PO QHS, #30 TAB 1 Refill 5/20/15 Olanzapine (OLANZAPINE) 20 Mg Tablet, 1 TAB PO QHS, #30 TAB 1 Refill 5/20/15 Insulin Lispro (HUMALOG) 100 Unit/1 Ml Cartridge, 10 UNIT SQ TIDWMEALS 07/26/13 Insulin Glargine,Hum.rec.anlog (LANTUS) 100 Unit/1 Ml Vial, 30 UNIT SQ HS, VIAL 07/26/13 MICHELLE RAYA MD November 28, 2018 13:56
--- NOTE | 2018-11-28 15:21 | NUR ---
Pt was discharged to [facility] at 1400 today in stable condition with all personal belongings. Report called into [facility], packet given to EMS transportation, all pertinent information faxed to [facility]. Pt was escorted via gurney and accompanied by & EMS transportation to the main exit where she was driven by EMS to [facility].
[2018-11-28] MEDS ORDERED: INSULIN GLARGINE 300 UNITS/3 ML INSULN.PEN. SQ SCH (21:00)
== END 2018-11-28 14:00 | DRG 871 ==
LOC: ER 10:14 → 1 WEST ICU 11:20 → 4 NORTH 11-19 12:29 → 1 WEST ICU 11-20 10:10 → 4 NORTH 11-21 15:12
PROVIDERS: ADMIT Internal Medicine; ATTEND Internal Medicine
DX: A41.9 Sepsis, unspecified organism (principal); E11.10 Type 2 diabetes mellitus with ketoacidosis without coma; G93.41 Metabolic encephalopathy; N17.0 Acute kidney failure with tubular necrosis; E87.0 Hyperosmolality and hypernatremia; E11.649 Type 2 diabetes mellitus with hypoglycemia without coma; E83.39 Other disorders of phosphorus metabolism; E83.41 Hypermagnesemia; E86.0 Dehydration; E87.6 Hypokalemia; F02.80 Dementia in other diseases classified elsewhere, unspecified severity, without behavioral disturbance, psychotic disturbance, mood disturbance, and anxiety; G31.83 Neurocognitive disorder with Lewy bodies; F31.9 Bipolar disorder, unspecified; G93.89 Other specified disorders of brain; I10 Essential (primary) hypertension; R65.20 Severe sepsis without septic shock; Z66 Do not resuscitate; Z82.0 Family history of epilepsy and other diseases of the nervous system
CPT/HCPCS: 36415; 36600; 70450; 71045; 74018; 80048; 80053; 80069; 80164; 81001; 82010; 82805; 82947; 82962; 83605; 83735; 84100; 85007; 85025; 85379; 87040; 87641; 93005; 96361; 96365; 96368; 96375; 96376; 99291; 99292; J0696; J1815; J3010; J3370; J3480; J3490; J7030; J7042; J7050; 92526; 92610; 97110; 97116; 97530; 97535